=== PATIENT | female | born 1965 | race Caucasian/White ===

== ENCOUNTER → 2017-08-26 10:18 | Outpatient (CLI) | payer BC, SELFPAY ==
[2017-08-26 12:26] LABS: Hemoglobin A1c 8.8 % (4.2-6.3)
[2017-08-26 12:35] LABS: ALB/GLOB Ratio 0.9 RATIO (0.9-2.4); AST(SGOT) 35 U/L (15-37); Alanine Aminotransfer ALT/SGPT 36 U/L (13-56); Alkaline Phosphatase 40 U/L (45-117); Anion Gap 11 (5-15); BUN 29 mg/dL (7-18); Calcium,Total 9.9 mg/dL (8.5-10.1); Chloride 101 mmol/L (98-107); Cholesterol 155 mg/dL (200); Creatinine, Serum 1.21 mg/dL (0.55-1.02); EST Glomerular Filtration Rate 50 mL/min (>60); Est Glom Filt Rate - Afr Amer 60 mL/min (>60); Globulin 4.3 g/dL (2.2-4.2); Glucose 155 mg/dL (74-106); High Density Lipoprotein 37 mg/dL; Potassium 4.5 mmol/L (3.5-5.1); Protein, Total 8.3 g/dL (6.4-8.2); Sodium Level 139 mmol/L (136-145); Triglycerides 382 mg/dL; Very Low Density Lipoprotein 76 mg/dL (5-40)
== END ==
PROVIDERS: Family Provider Family Medicine; PCP Family Medicine; Visit Provider Nurse Practitioner
DX: E11.9 Type 2 diabetes mellitus without complications (principal)
CPT/HCPCS: 36415; 80053; 80061; 82043; 82570; 83036; 84443

== ENCOUNTER → 2017-11-19 10:26 | Outpatient (CLI) | payer BC, SELFPAY ==
[2017-11-19 12:06] LABS: ALB/GLOB Ratio 0.8 RATIO (0.9-2.4); AST(SGOT) 28 U/L (15-37); Alanine Aminotransfer ALT/SGPT 34 U/L (13-56); Albumin, Serum 3.6 g/dL (3.2-5.0); Alkaline Phosphatase 43 U/L (45-117); Anion Gap 7 (5-15); BUN 20 mg/dL (7-18); BUN/Creat Ratio 17.1 RATIO (10-20); Calcium,Total 9.3 mg/dL (8.5-10.1); Chloride 103 mmol/L (98-107); Cholesterol 159 mg/dL (200); Creatinine, Serum 1.17 mg/dL (0.55-1.02); EST Glomerular Filtration Rate 52 mL/min (>60); Est Glom Filt Rate - Afr Amer 62 mL/min (>60); Globulin 4.3 g/dL (2.2-4.2); Glucose 147 mg/dL (74-106); High Density Lipoprotein 38 mg/dL; Potassium 4.1 mmol/L (3.5-5.1); Protein, Total 7.9 g/dL (6.4-8.2); Sodium Level 139 mmol/L (136-145); T4 Free Direct 0.42 ng/dL (0.76-1.46); Triglycerides 420 mg/dL
== END ==
PROVIDERS: Family Provider Family Medicine; PCP Family Medicine; Referring Provider Nurse Practitioner; Visit Provider Nurse Practitioner
DX: E11.65 Type 2 diabetes mellitus with hyperglycemia (principal)
CPT/HCPCS: 36415; 80053; 80061; 84439; 84443

== ENCOUNTER → 2018-02-25 10:46 | Outpatient (CLI) | payer BC, SELFPAY ==
[2018-02-25 11:25] LABS: Absolute Neutrophil Count 4.1 X10^3/uL (2.0-7.7); Basophil# 0.02 X10^3/uL; Basophil% 0.3 % (0-1); Eosinophil# 0.34 X10^3/uL; Eosinophils% 4.5 % (0-5); Hematocrit 37.6 % (37-47); Hemoglobin 12.4 g/dl (12.0-15.0); Lymphocyte % 34.8 % (19-41); Mean Corpuscular Volume 88.1 fL (81-99); Mean Platelet Vol. 10.1 fl (6.2-12.0); Monocyte# 0.36 X10^3/uL; Monocyte% 4.8 % (0-10); Neutrophil # 4.12 X10^3/uL (2.7-7.7); Neutrophil % 55.1 % (47-70); Platelet Count 230 K/mm3 (150-450); RBC Distribution Width CV 14.8 % (11.6-14.6); RBC Distribution Width SD 47.1 fl (35.1-43.9); Red Blood Count 4.27 M/mm3 (4.2-5.4); White Blood Count 7.5 K/mm3 (4.4-11.0)
[2018-02-25 11:29] LABS: POSITIVE COUNT NO; POSITIVE DIFFERENTIAL NO; POSITIVE MORPHOLOGY NO
[2018-02-25 11:45] LABS: Hemoglobin A1c 8.8 % (4.2-6.3)
[2018-02-25 11:51] LABS: AST(SGOT) 36 U/L (15-37); Alanine Aminotransfer ALT/SGPT 38 U/L (13-56); Albumin, Serum 3.9 g/dL (3.2-5.0); Alkaline Phosphatase 51 U/L (45-117); Anion Gap 11 (5-15); BUN 22 mg/dL (7-18); BUN/Creat Ratio 18.5 RATIO (10-20); Calcium,Total 9.2 mg/dL (8.5-10.1); Chloride 103 mmol/L (98-107); Creatinine, Serum 1.19 mg/dL (0.55-1.02); EST Glomerular Filtration Rate 50 mL/min (>60); Est Glom Filt Rate - Afr Amer 61 mL/min (>60); Globulin 3.9 g/dL (2.2-4.2); Glucose 246 mg/dL (74-106); Potassium 4.9 mmol/L (3.5-5.1); Protein, Total 7.8 g/dL (6.4-8.2); Sodium Level 139 mmol/L (136-145)
[2018-02-27 10:30] LABS: PTHIN 10.9 pg/mL (18.4-80.1)
[2018-02-27 10:59] LABS: Vitamin D,25 Hydroxy 23.6 ng/mL (29.95-100.01)
--- OUTSIDE RECORDS SUMMARY | 2018-05-01 10:04 | XMS RPT_ITS ---
:1965 Author Organization OHIP Care Team Providers Name Role Phone CHIDI BRISCOE Attending Unavailable Elizabeth Duarte Attending Unavailable Elizabeth Duarte Referring Unavailable Pavel Briscoe Primary Care Unavailable Jak Oconnell Consulting Unavailable Denise Cat Attending Unavailable Pavel Briscoe Referring Unavailable Elizabeth Duarte Attending Unavailable Elizabeth Duarte Referring Unavailable Pavel Briscoe Primary Care Unavailable Elizabeth Duarte METAL WORKER-C Attending Unavailable Pavel Briscoe Referring Unavailable Pavel Briscoe Primary Care Unavailable Elizabeth Duarte METAL WORKER-C Attending Unavailable FeliciaElizabeth METAL WORKER-C Referring Unavailable Pavel Briscoe Primary Care Unavailable Elizabeth Duarte METAL WORKER-C Attending Unavailable Pavel Briscoe Referring Unavailable PROBLEMS PROBLEMS DATE TYPE CONDITION / CODE ATTENDING STATUS SOURCE 02/25/2018 Unknown E11.65 - Type 2 Elizabeth Duarte Active [place] diabetes mellitus [facility] Community with hyperglycemia Hospital / E11.65(ICD-10) Repository 02/25/2018 Unknown E11.59 - Type 2 ShoElizabeth de la rosa Active [place] diabetes mellitus METAL WORK[facility]C Community with other Hospital circulatory Repository complications / E11.59(ICD-10) 02/25/2018 Unknown I10 - Essential Elizabeth Duarte Active [place] (primary) [facility] Community hypertension / Hospital I10(ICD-10) Repository 02/25/2018 Unknown S83.242A - Other Elizabeth Duarte Active [place] tear of medial METAL WORKER-C Community meniscus, current Hospital injury, left knee, Repository initial encounter / S83.242A(ICD-10) 12/28/2017 Unknown E11.9 - Type 2 Elizabeth Duarte Active [place] diabetes mellitus METAL WORKER-C Community without Hospital complications / Repository E11.9(ICD-10) 12/28/2017 Unknown E03.9 - Elizabeth Duarte Active [place] Hypothyroidism, METAL WORKER-C Community unspecified / Hospital E03.9(ICD-10) Repository 12/28/2017 Unknown Z79.4 - intermediate Elizabeth Duarte Active [place] (current) use of METAL WORKER-C Community insulin / Hospital Z79.4(ICD-10) Repository 12/28/2017 Unknown E11.69 - Type 2 ShoElizabeth de la rosa Active [place] diabetes mellitus METAL WORKER-C Community with other Hospital specified Repository complication / E11.69(ICD-10) 12/28/2017 Unknown E78.5 - ShoElizabeth de la rosa Active [place] Hyperlipidemia, METAL WORKER-C Community unspecified / Hospital E78.5(ICD-10) Repository PROCEDURES PROCEDURES No Procedure Records FoundRESULTS RESULTS CNPN Observed: 02/28/2018 Status: COMPLETED Source: [place] 12:00 AM [facility] REPOSITORY Telephone (FPWADS) COBY GALEANO ([id number]) 1965 F Date Time Provider Department 02/28/18 CHIDI BRISCOE During your visit today, we recorded the following information about you: Jaylen Delcid Ma 02/28/2018 5:26 PM Addendum Received labs from [facility] 02/25/18 GLU 246 BUN 22 CREAT,SERUM 1.19 EST GFR 50 EST GFR AA 61 BUN/CRE 18.5 T PROT 7.8 ALB 3.9 GLOB 3.9 A/G 1.0 CA, TOTAL 9.2 AST 36 ALK P 51 ALT 38 T BILI 0.30 NA 139 POTASSIUM 4.9 CL 103 CO2 25.0 GAP 11 FREE T3 2.0 TSH 51.40 HGB AIC 8.8 WBC 7.5 RBC 4.27 HGB 12.4 HCT 37.6 MCV 88.1 MCH 29.0 MCHC 33.0 RDW CV 14.8 RDW SD 47.1 PLT 230 MPV 10.1 NEUT 55.1 LY 34.8 MONO 4.8 EO 4.5 BASO 0.3 IG 0.500 ABSOLUTE NEUT 4.1 ABSOLUTE LYMPH 2.60 PTH 10.9 Hm updated Jaylen Delcid Ma 03/01/2018 10:24 AM Signed [facility] 02/25/18 Vitamin D 25-OH 23.6 Allergies As of Date: 02/28/2018 (No Known Allergies) Date Reviewed: 08/09/2017 Reviewed by: Kitty Mix Ma - Fully Assessed Reason for Visit: [facility] Labs [Other] Cmt: 02/25/18 Prescriptions as of 02/28/2018 Sig: BIOTIN 5,000 MCG DISINTEGRATI* Take by mouth. CHROMIUM PICOLINATE 1,000 MCG* Take by mouth. INSULIN LISPRO (U-200) 200 UN* Inject 33-43 Units subcutaneo* INSULIN GLARGINE (U-100) 100 * Inject 48 Units subcutaneousl* ATORVASTATIN 40 MG TABLET Take 1 tablet by mouth once d* ESCITALOPRAM 20 MG TABLET Take 1 tablet by mouth once d* AMLODIPINE 10 MG TABLET Take 1 tablet by mouth once d* LOSARTAN 100 MG TABLET Take 1 tablet by mouth once d* HYDROCHLOROTHIAZIDE 50 MG TAB* Take 1 tablet by mouth once d* SPIRONOLACTONE 50 MG TABLET Take 1 tablet by mouth once d* FENOFIBRATE MICRONIZED 200 MG* Take 1 capsule by mouth once * METFORMIN ER 500 MG TABLET,EX* Take 2 tablets by mouth twice* OMEPRAZOLE 20 MG CAPSULE,MEGHAN* TAKE 1 CAPSULE BY MOUTH DAILY* GABAPENTIN 600 MG TABLET 1/2 tablet at bedtime, taper * BLOOD SUGAR DIAGNOSTIC STRIPS check blood sugars 4 times da* PEN NEEDLE, DIABETIC 32 GAUGE* Use with insulin injections 5* LEVOTHYROXINE 200 MCG TABLET TAKE 1 TABLET DAILY SIX DAYS * COENZYME Q10 100 MG CAPSULE Take 1 capsule by mouth once * FLUTICASONE 50 MCG/ACTUATION * Use 2 Sprays in each nostril * Patient not taking: Reported on 08/09/2017 CHOLECALCIFEROL (VITAMIN D3) * 1 capsule twice per day OMEGA-3 FATTY ACIDS 1,000 MG * Take 1 capsule by mouth twice* ASPIRIN 81 MG TABLET Take 81 mg by mouth. NORETHINDRONE (CONTRACEPTIVE)* Take 1 tablet by mouth once d* MULTIVITAMIN TABLET Take one(1) tablet daily. 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 Encounter Status:Closed by JAYLEN DELCID MA on 02/28/18 CBC W/DIFF, AUTOMATED Collected: 02/25/2018 Status: F Source: [place] 10:51 AM [facility] REPOSITORY Order Comment: JAK OCONNELL ORDERED CBCD BMP A1C ELIZABETH DUARTE ORDERED CMP TSH FT3 PTH VITD TYPE CODE TESTS RESULT OUT OF RANGE REFERENCE UNITS LAB L100.1000 4.4-11.0 K/mm3 Normal WBC 7.5 LAB L100.1200 4.2-5.4 M/mm3 Normal RBC 4.27 LAB L100.1300 12.0-15.0 g/dl Normal HGB 12.4 LAB L100.1400 37-47 % Normal HCT 37.6 LAB L100.1500 81-99 fL Normal MCV 88.1 LAB L100.1600 27.0-32.0 pg Normal MCH 29.0 LAB L100.1700 32-36 g/gl Normal MCHC 33.0 LAB L100.1810 11.6-14.6 % High RDW CV 14.8 LAB L100.1820 35.1-43.9 fl High RDW SD 47.1 LAB L100.1900 150-450 K/mm3 Normal PLT 230 LAB L100.2000 6.2-12.0 fl Normal MPV 10.1 LAB L100.2100 47-70 % Normal NEUT% 55.1 LAB L100.2200 19-41 % Normal LY% 34.8 LAB L100.2300 0-10 % Normal MONO% 4.8 LAB L100.2400 0-5 % Normal EO% 4.5 LAB L100.2500 0-1 % Normal BASO% 0.3 LAB L100.2550 0.0-0.9 % Normal IM GRAN % 0.500 Result Comment: IG% - Immature Granulocytes (promyelocytes, myelocytes and metamyelocytes) > 1% indicates that a LEFT SHIFT is Present. LAB L100.2620 2.0-7.7 X10 3/uL Normal Absolute Neut 4.1 LAB L100.2720 0.83-4.51 X10 3/ul Normal Absolute Lymph 2.60 Performed By: #### L100.0100 #### [facility] [address] [place], [address] HEMOGLOBIN A1C Collected: 02/25/2018 Status: F Source: [place] 10:51 AM [facility] REPOSITORY Order Comment: JAK OCONNELL ORDERED CBCD BMP A1C ELIZABETH NORRISSATNAM ORDERED CMP TSH FT3 PTH VITD TYPE CODE TESTS RESULT OUT OF RANGE REFERENCE UNITS LAB L501.9985 4.2-6.3 % High HGB A1C 8.8 Performed By: #### L501.9985 #### [facility] [address] [place], [address] COMPREHENSIVE METABOLIC Collected: 02/25/2018 Status: F Source: [facility] 10:51 AM [facility] REPOSITORY Order Comment: JAK OCONNELL ORDERED CBCD BMP A1C ELIZABETH FELICIA ORDERED CMP TSH FT3 PTH VITD TYPE CODE TESTS RESULT OUT OF RANGE REFERENCE UNITS LAB L501.0100 74-106 mg/dL High GLU 246 Result Comment: Glucose result greater than or equal to 200 mg/dL suggests DIABETES MELLITUS per A.D.A. criteria. Please note revised GLUCOSE reference range effective 2017. LAB L501.1000 7-18 mg/dL High BUN 22 LAB L501.1100 0.55-1.02 mg/dL High CREAT,SERUM 1.19 Result Comment: The validity of the calculated GFR AND GFRAA in patients over 70 years has not been determined. Clinical correlation is essential. LAB L501.1110 >60 mL/min Low EST GFR 50 Result Comment: Non- GFR Calc LAB L501.1115 >60 mL/min Normal EST GFR - AA 61 Result Comment: GFR Calc LAB L501.1300 10-20 RATIO Normal BUN/CRE 18.5 LAB L501.1500 6.4-8.2 g/dL T Normal PROT 7.8 LAB L501.1800 3.2-5.0 g/dL Normal ALB 3.9 LAB L501.1950 2.2-4.2 g/dL Normal GLOB 3.9 LAB L501.2000 0.9-2.4 RATIO Normal A/G 1.0 LAB L501.2200 8.5-10.1 mg/dL CA Normal 9.2 LAB L501.4100 15-37 U/L Normal AST 36 LAB L501.4305 45-117 U/L Normal ALK P 51 LAB L501.4405 13-56 U/L Normal ALT 38 LAB L501.4600 0.20-1.00 mg/dL T Normal BILI 0.30 LAB L501.5300 136-145 mmol/L NA Normal 139 LAB L501.5600 3.5-5.1 mmol/L K Normal 4.9 LAB L501.5900 98-107 mmol/L CL Normal 103 LAB L501.6100 21.0-32.0 mmol/L Normal CO2 25.0 LAB L501.6200 5-15 Normal GAP 11 Performed By: #### L500.4050, L501.79186, L501.9520 #### [facility] [address] [facility]. [place], [place], [address] FREE T3 Collected: 02/25/2018 Status: F Source: [place] 10:51 AM [facility] REPOSITORY Order Comment: JAK OCONNELL ORDERED CBCD BMP A1C ELIZABETH [facility] ORDERED CMP TSH FT3 PTH VITD TYPE CODE TESTS RESULT OUT OF RANGE REFERENCE UNITS LAB L501.84129 2.18-3.98 pg/mL Low FREE T3 2.0 Performed By: #### L500.4050, L501.92957, L501.9520 #### [facility] [address] [facility]. [place], [place], [address] THYROID STIM HORMONE Collected: 02/25/2018 Status: F Source: [place] (TSH) 10:51 AM [facility] REPOSITORY Order Comment: JAK OCONNELL ORDERED CBCD BMP A1C ELIZABETH SHOOK ORDERED CMP TSH FT3 PTH VITD TYPE CODE TESTS RESULT OUT OF RANGE REFERENCE UNITS LAB L501.9520 0.358-3.74 uIU/mL High TSH 51.40 Performed By: #### L500.4050, L501.20447, L501.9520 #### [facility] [address] [place], [place], [address] PTHIN Collected: 02/25/2018 Status: F Source: [place] 10:51 AM [facility] REPOSITORY Order Comment: JAK OCONNELL ORDERED CBCD BMP A1C ELIZABETH DUARTE ORDERED CMP TSH FT3 PTH VITD TYPE CODE TESTS RESULT OUT OF RANGE REFERENCE UNITS LAB L509.1000 18.4-80.1 pg/mL Low PTHIN 10.9 Performed By: #### L509.1000 #### [facility] [address] [place], [place], [address] VITAMIN D,25 HYDROXY Collected: 02/25/2018 Status: F Source: [place] 10:51 AM [facility] REPOSITORY Order Comment: JAK OCONNELL ORDERED CBCD BMP A1C ELIZABETH DUARTE ORDERED CMP TSH FT3 PTH VITD TYPE CODE TESTS RESULT OUT OF REFERENCE UNITS RANGE LAB L506.1000 29.95-100.01 ng/mL Low Vitamin D 23.6 25-OH Result Comment: Vitamin D 25(OH) Status Range Deficiency <20 ng/mL (50nmol/L) Insuffciency 20 - 30 ng/mL (50 - 75 nmol/L) Sufficiency 30 - 100 ng/mL (75 - 250 nmol/L) Toxicity >100 ng/mL (>250 nmol/L) Performed By: #### L506.1000 #### [facility] [address] [place], [address] ENDOCRINOLOGY VISIT Observed: 11/28/2017 Status: F Source: [place] REPORT 10:37 AM [facility] REPOSITORY [facility] [place], [place] [address] OFFICE VISIT Date of Service: 11/22/17 MR#: [id number] Acct: [id number] Name: COBY GALEANO Rep #: [id number] : 1965 Provider: Elizabeth Duarte NP Age/Sex: 52/F [place] [facility]: Signed HPI History of present illness Coby Galeano is a 52 year old female who presents for follow up od diabetes type 2. Diagnosed in 2001. Pt of Dr. Bricsoe. Currently on lantus 48 units twice daily and meal insullin 45 units before each meal. Also takes metformin. Pt denies difficulty with injections or self monitoring of BG. Denies any signs of irritation or infection at of injections. Is taking the insulin as directed. Is here today to review lab results. At last visit issues noted with elevation in Cr levels. Patient was ask to recheck levels for this appointment. Is noted to currently take 4 medications for blood pressure. She reports she is not consistent in fluid intake and does tend to drink most fluids with caffeine. At time of visit -Pt denies symptoms of hypertensive emergency (CP,SOB,FLOYD< blurred vision) and hypotension(dizziness, lightheadedness) - Pt denies symptoms of hypoglycemia ( sweaty, confusion, anxiety, tremor, hunger, palpitations) and hyperglycemia (polydipsia, polyuria) -Pt denies potential medication adverse effects (cough,myalgia, edema). Since our last visit she denies excessive thirst or increased frequency of urination, chest pain or dyspnea, numbness,tingling, or pain in extremities, new or unusual visual symptoms. Has had occ low blood sugars. Follows a diabetic diet. Is compliant with medication and is tolerating without side effects. HYPOGLYCEMIA Aware of hypoglycemia: yes Able to self treat hypoglycemia : yes Frequent low BG readings: No Has supply of glucagon: no DIET/EXERCISE healthy diet 3 meals Carb counts Not as routine with exercise currently I have reviewed medical records, vital signs, allergies, current medications, labs, PMH, SH, SH, and records of vaccinations. Exam Const General: comfortable, well groomed Nutritional Appearance: well nourished, overweight Orientation: oriented x3 HENMT Head: normal to inspection, atraumatic Ears: hearing grossly normal bilaterally Nose: external nose normal Mouth: oral mucosae normal, moist mucous membranes Teeth and gingiva: dentition normal Eyes General: appearance normal, both eyes and all related structures Eyelids: eyelids normal Conjunctivae: conjunctivae normal Sclera: sclerae normal Pupils: PERRL Neck Neck: normal visual inspection Neck mass: No Thyroid: thyroid normal Resp Effort AND Inspection: normal respiratory effort, able to speak in complete sentences, symmetric chest movement Auscultation: Bilateral: Clear to Auscultation Cardio Rate: regular rate Rhythm: regular rhythm Heart Sounds: S1 normal, S2 normal GI Inspection: normal to inspection Auscultation: normal bowel sounds Palpation: soft, no guarding Skin General: no rashes or lesions noted Wounds: no wounds Diabetic Foot Pulses: L dorsalis pedis pulse: normal, R dorsalis pedis pulse: normal Monofilament test: Left foot: normal, Right foot: normal Neuro General: oriented x3, CN's II-XI intact bilaterally Extrem General: full ROM, normal capillary refill, normal to inspection Psych Appearance: well kempt, grossly normal Mental Status: mental status grossly normal Mood: congruent mood Affect: normal affect Speech and Movement: speech and movement normal Attitude: cooperative Thought Process: normal Thought Content: normal Judgment: judgment good Type: type 2, insulin-requiring Glucose control symptoms: Reports high post-meal glucose Weight and fatigue symptoms: Reports weight gain; denies snoring Cardiopulmonary symptoms: Denies chest pain at rest, dyspnea on exertion, lightheadedness or myalgias GI symptoms: Reports diarrhea and nausea/dyspepsia; denies constipation or vomiting Other symptoms: Denies blurry vision or change in vision Pertinent visit history: Denies recent visit to ER, recent hospital admission or recent glucagon injection Intake Vital Signs11/22/17 Height 5 ft 10.5 in 11/22/17 Weight: 275 lb 11/22/17 Body Mass Index (BMI) 38.9 11/22/17 Blood Pressure 130/74 H 11/22/17 Blood Pressure Location Lt popliteal 11/22/17 Blood Pressure Position Sitting Intake Visit Reasons: Diabetes follow-up Coordinator Of Placement Required: No Accompanied by: Self Allergies No Known Allergies Allergy (Unverified 11/22/17 09:23) Medications amlodipine 10 mg tablet 10 mg PO QDAY 08/30/17 [History Confirmed 11/22/17] aspirin 325 mg tablet 325 mg PO QDAY 08/30/17 [History Confirmed 11/22/17] atorvastatin 40 mg tablet 40 mg PO QDAY 08/30/17 [History Confirmed 11/22/17] escitalopram 10 mg tablet 10 mg PO QDAY 08/30/17 [History Confirmed 11/22/17] fenofibrate nanocrystallized 145 mg tablet 145 mg PO QDAY 08/30/17 [History Confirmed 11/22/17] gabapentin 600 mg tablet 1,200 mg PO QDAY tab 08/30/17 [History Confirmed 11/22/17] hydrochlorothiazide 50 mg tablet 50 mg PO QDAY 08/30/17 [History Confirmed 11/22/17] losartan 100 mg tablet 100 mg PO QDAY 08/30/17 [History Confirmed 11/22/17] metformin ER 500 mg tablet,extended release 24hr 1,000 mg PO BID tab 08/30/17 [History Confirmed 11/22/17] spironolactone 25 mg tablet 25 mg PO QDAY 08/30/17 [History Confirmed 11/22/17] insulin glargine (U-100) 100 unit/mL (3 mL) subcutaneous pen 55 unit SC BID #105 ml 09/13/17 [Rx Confirmed 11/22/17] pen needle, diabetic 32 gauge x 32 See Dose Instructions .ROUTE .MEDSUPPLY #360 ea 09/15/17 [Rx Confirmed 11/22/17] insulin aspart U- 100 100 unit/mL subcutaneous pen See Rx Instructions SC .COMPLEX #153 ml 10/11/17 [Rx Confirmed 10/11/17] blood sugar diagnostic strips See Dose Instructions .ROUTE .MEDSUPPLY #540 ea 11/22/17 [Rx Confirmed 11/22/17] levothyroxine 25 mcg tablet See Rx Instructions PO QDAY #96 tab 11/22/17 [Rx Confirmed 11/22/17] Nurse's Note: blood sugars : low : 140 high :354 [facility] Medical History Lichen sclerosus (Acute) PCOS (polycystic ovarian syndrome) (Acute) APRIL III (cervical intraepithelial neoplasia grade III) with severe dysplasia (Chronic) Abnormal Pap smear of vagina (Acute) Anxiety and depression (Acute) Diabetes (Acute) Hyperlipemia (Acute) Overweight (Acute) Vitamin D deficiency (Acute) gallbladder removal (Acute) hypothroidism (Acute) Hypertension (Chronic) Family History Mother Heart disease Social History Smoking Status: Never smoker alcohol intake: never substance use type: does not use what type of physical activity do you participate in: other details: stretching do you feel safe at home: Yes additional social history: spouse Denny Staton Constitutional: Positive for fatigue; no anorexia, body ache, chills, fever(s), frequent falls, decreased energy, malaise, night sweats, weakness, weight change, sleep problems, abnormal sleep pattern, change in appetite, other, headache(s), snoring or excessive sweating Eyes Eyes: No blurry vision, change in vision, double vision, discharge, dry eyes, bulging eyes, floaters, visual disturbances, eye pain, light sensitivity, spots in vision, tunnel vision or other ENT ENT: Positive for nasal congestion and nasal discharge; no abnormal hearing, ear pain, ear discharge, ear pressure, hearing loss, tinnitus, dizziness/vertigo, balance problems, nosebleed/epistaxis, nasal obstruction, nose pain, sinus pressure, sinus pain, post nasal drip, headache(s), facial pain, dental pain, dry mouth, bad breath, hoarseness, lip swelling, mouth lesions, mouth pain, sore throat, tongue swelling, throat swelling, other, difficulty swallowing or neck pain Resp Respiratory: Positive for cough; no change in phlegm color, chest congestion, excessive phlegm production, hemoptysis, pain on inspiration, shortness of breath, pain with cough, snoring, stridor, wheezing or other Cardio Cardiology: No chest pain at rest, chest pain with exertion, leg pain with exertion, excessive sweating, shortness of breath, dyspnea on exertion, generalized swelling, irregular heart rhythm, lightheadedness, orthopnea, radiating jaw, neck or arm pain, fast heart rate, slow heart rate, palpitations or other Gastro GI: Positive for diarrhea and nausea/dyspepsia; no abdominal pain, belching, bloating, change in bowel habits, change in stool character, coffee ground emesis, constipation, cramping, heartburn, difficulty swallowing, feeling full early, excessive flatus, incontinent of stools, Vomiting blood/hematemesis, blood in stool, loose stools, Black,tarry stools, pain with swallowing, vomiting or other Genitourinary-Female: No difficulty urinating, burning urination, painful urination, urinary incontinence, urinary frequency, urinary urgency, urinary hesitancy, urinary retention, blood in urine, Frequent nighttime urination/ nocturia, post void dribbling, suprapubic fullness, side pain, sexual problems, genital lesions, genital itching, hot flashes, abnormal periods, abnormal vaginal bleeding, absent period, painful periods, light periods, heavy periods, difficulty getting , painful intercourse, pelvic pain, vaginal dryness, vaginal odor, Vaginal Itching or other Musc Musculoskeletal: No abnormal walking, joint pain, back pain, deformity, joint swelling, limited range of motion, loss of height, muscle cramps, muscle weakness, decreased muscle mass, body aches, neck pain, numbness, radiating pain into limb, stiffness, tingling or other Skin Skin: Positive for change in hair and nail changes; no acne, hair loss, boil, change in skin color, dry skin, redness, excessive hair growth, yellowing of the skin, lesions, itching, rash, skin pain, skin ulcer, sores, skin swelling, wounds or other Breast Breast: No other Neuro Neurology: No frequent falls, weakness, visual disturbances, abnormal hearing, headache(s), abnormal walking, numbness or tingling Psych Psychiatric: No abnormal sleep pattern, No change in appetite Endo Endocrine: Positive for fatigue; no other or excessive sweating Aller/Imm Allergy/Immunologic: No lip swelling, tongue swelling, throat swelling, wheezing or itchy eyes Assessment AND Plan 1. Uncontrolled type 2 diabetes mellitus with hyperglycemia E11.65 Plan Diabetes remains uncontrolled. Recent elevation in Cr. has patient concerned. Recheck today notes sl improvement but remains abnormal. BG readings remain with elevated readings post meal. Will adjust meal coverage. Pt to check BG in pairs. Orders Orders: 2. Hyperlipidemia associated with type 2 diabetes mellitus E11.69; E78.5 Medications New: blood sugar diagnostic strips (OneTouch Ultra Blueuse to check BG 6 x qd 540 ea 3RF e11.9 Test Strip) 3. Hypertension associated with diabetes E11.59; I10 Plan BP improved. Currently 130/74. Taking medication as directed except she does skip lasix on occasion. Orders Orders: 4. Hypothyroidism (acquired) E03.9 Plan TSH remains elevated. Adjustment made in regimen. Add 1/2 tablet on Tuesday with lab recheck in 6 weeks. Patient reports taking medication as directed. Plan Detail Other Medications New: insulin aspart U- (Novolog Flexpen U-) 43 units with each meal and sliding scale up to 170 units daily SC 153 mL 3RF Refilled: Additional Comments 1. Please schedule follow up in 3 months. 2. Lab work one week before appointment. 3. Discussed importance of regular exercise and recommend starting or continuing a regular exercise program for good health. 4. The patient was encouraged to lose weight for good health 5. The importance of monitoring blood sugar regularly was reviewed. 6. The importance of monitoring the HBA1c level regularly was reviewed. 7. The importance of prper foot care and regularly checking feet to prevent sores and loss of limbs was reviewed. 8. The importance of keeping BP at or below 130/80 to prevent stroke, heart attacks, kidney failure, blindness was reviewed. Spent approximately 30 minutes with patient with over 50% of time spent in discussion and counseling regarding medication adjustment, symptoms and treatment of hypoglycemia, diet adherence, and checking BG before driving. Coding Level of Care Code Off vis,est,level 4 Diagnoses Uncontrolled type 2 diabetes mellitus with hyperglycemia E11.65 Glycemic state: with hyperglycemia Hyperlipidemia associated with type 2 diabetes mellitus E11.69; E78.5 Hypertension associated with diabetes E11.59; I10 Hypothyroidism (acquired) E03.9 11/28/17 1037 <Electronically signed by Elizabeth SAUL> Date Elizabeth SAUL Cosigner Signature: Date (if applicable) CC: COMPREHENSIVE METABOLIC Collected: 11/19/2017 Status: F Source: [place] NICKO 10:36 AM [facility] REPOSITORY TYPE CODE TESTS RESULT OUT OF RANGE REFERENCE UNITS LAB L501.0100 74-106 mg/dL High GLU 147 Result Comment: Fasting Glucose result greater than or equal to 126 mg/dL suggests DIABETES MELLITUS per A.D.A. criteria. Please note revised GLUCOSE reference range effective 2017. LAB L501.1000 7-18 mg/dL High BUN 20 LAB L501.1100 0.55-1.02 mg/dL High CREAT,SERUM 1.17 Result Comment: The validity of the calculated GFR AND GFRAA in patients over 70 years has not been determined. Clinical correlation is essential. LAB L501.1110 >60 mL/min Low EST GFR 52 Result Comment: Non- GFR Calc LAB L501.1115 >60 mL/min Normal EST GFR - AA 62 Result Comment: GFR Calc LAB L501.1300 10-20 RATIO Normal BUN/CRE 17.1 LAB L501.1500 6.4-8.2 g/dL T Normal PROT 7.9 LAB L501.1800 3.2-5.0 g/dL Normal ALB 3.6 LAB L501.1950 2.2-4.2 g/dL High GLOB 4.3 LAB L501.2000 0.9-2.4 RATIO Low A/G 0.8 LAB L501.2200 8.5-10.1 mg/dL CA Normal 9.3 LAB L501.4100 15-37 U/L Normal AST 28 LAB L501.4305 45-117 U/L Low ALK P 43 LAB L501.4405 13-56 U/L Normal ALT 34 LAB L501.4600 0.20-1.00 mg/dL T Normal BILI 0.40 LAB L501.5300 136-145 mmol/L NA Normal 139 LAB L501.5600 3.5-5.1 mmol/L K Normal 4.1 LAB L501.5900 98-107 mmol/L CL Normal 103 LAB L501.6100 21.0-32.0 mmol/L Normal CO2 29.0 LAB L501.6200 5-15 Normal GAP 7 Performed By: #### L500.4050, L500.4100, L501.9520, L506.0400 #### [facility] [address] [place], [address] LIPID PROFILE Collected: 11/19/2017 Status: F Source: [place] 10:36 AM [facility] REPOSITORY TYPE CODE TESTS RESULT OUT OF RANGE REFERENCE UNITS LAB L501.4900 200 mg/dL Normal CHOL 159 Result Comment: <200 mg/dL Desirable 200-240 mg/dL Borderline >240 mg/dL High Risk LAB L501.5000 mg/dL High TRIG 420 Result Comment: The drugs N-Acetylcysteine and Metamizole may falsely depress this assay. TRIGLYCERIDE IS GREATER THAN 400 mg/dL. LDL RESULT IS INVALID AND WILL NOT BE REPORTED. Serum Triglycerides Reference Interval Normal <150 mg/dL Borderline high 150 - 199 mg/dL High 200 - 499 mg/dL Very High > or = 500 mg/dL LAB L501.6400 mg/dL Low HDL 38 Result Comment: The drugs N-Acetylcysteine and Metamizole may falsely depress this assay. Reference Range HDL <40 mg/dL Low HDL Cholesterol HDL >or= 60 mg/dL High HDL Cholesterol LAB L501.6500 0-130 mg/dL Test Normal not performed LDL LAB L501.6600 5-40 mg/dL Test Normal not performed VLDL Performed By: #### L500.4050, L500.4100, L501.9520, L506.0400 #### [facility] [address] [place], [address] THYROID STIM HORMONE Collected: 11/19/2017 Status: F Source: [place] (TSH) 10:36 AM [facility] REPOSITORY TYPE CODE TESTS RESULT OUT OF RANGE REFERENCE UNITS LAB L501.9520 0.358-3.74 uIU/mL High TSH 49.10 Performed By: #### L500.4050, L500.4100, L501.9520, L506.0400 #### [facility] [address] [facility] [place], [address] T4 FREE DIRECT Collected: 11/19/2017 Status: F Source: [place] 10:36 AM [facility] REPOSITORY TYPE CODE TESTS RESULT OUT OF REFERENCE UNITS RANGE LAB L506.0400 0.76-1.46 ng/dL Low T4 FREE 0.42 DIRECT Performed By: #### L500.4050, L500.4100, L501.9520, L506.0400 #### [facility] [address] [facility] [place], [address] PROGRESS Observed: 09/14/2017 Status: COMPLETED Source: [place] 1:52 PM [facility] REPOSITORY HNO ID: [id number] Author: Kassi Edwards Service: (none) Author Type: Inspector Fuel Hose Type: Progress Notes Filed: 09/14/2017 2:25 PM Note Text: Called patient regarding lab work .[facility] Updating Health maintenance. Kassi Edwards MA [facility] Observed: 09/14/2017 Status: COMPLETED Source: [place] 12:00 AM [facility] REPOSITORY Patient Outreach (FAMPWS) COBY GALEANO ([id number]) 1965 F Date Time Provider Department 09/14/17 KASSI EDWARDS) MANJULAPWS During your visit today, we recorded the following information about you: Kassi Edwards MA 09/14/2017 2:25 PM Signed Called patient regarding lab work .[facility] Updating Health maintenance. Kassi Edwards MA Allergies As of Date: 09/14/2017 (No Known Allergies) Date Reviewed: 08/09/2017 Reviewed by: Kitty Mix Ma - Fully Assessed Order(s):HGB A1C [DPVHV0E] Order #: [id number] LIPID PANEL - EXTERNAL [[id number]] Order #: [id number] LDL CHOLESTEROL DIR [SQLDLDCT] Order #: [id number] MICROALBUMIN RANDOM URINE (EXTERNAL) [[id number]] Order #: [id number] Prescriptions as of 09/14/2017 Sig: BIOTIN 5,000 MCG DISINTEGRATI* Take by mouth. CHROMIUM PICOLINATE 1,000 MCG* Take by mouth. INSULIN LISPRO (U-200) 200 UN* Inject 33-43 Units subcutaneo* INSULIN GLARGINE (U-100) 100 * Inject 48 Units subcutaneousl* ATORVASTATIN 40 MG TABLET Take 1 tablet by mouth once d* ESCITALOPRAM 20 MG TABLET Take 1 tablet by mouth once d* AMLODIPINE 10 MG TABLET Take 1 tablet by mouth once d* LOSARTAN 100 MG TABLET Take 1 tablet by mouth once d* HYDROCHLOROTHIAZIDE 50 MG TAB* Take 1 tablet by mouth once d* SPIRONOLACTONE 50 MG TABLET Take 1 tablet by mouth once d* FENOFIBRATE MICRONIZED 200 MG* Take 1 capsule by mouth once * METFORMIN ER 500 MG TABLET,EX* Take 2 tablets by mouth twice* OMEPRAZOLE 20 MG CAPSULE,MEGHAN* TAKE 1 CAPSULE BY MOUTH DAILY* GABAPENTIN 600 MG TABLET 1/2 tablet at bedtime, taper * BLOOD SUGAR DIAGNOSTIC STRIPS check blood sugars 4 times da* PEN NEEDLE, DIABETIC 32 GAUGE* Use with insulin injections 5* LEVOTHYROXINE 200 MCG TABLET TAKE 1 TABLET DAILY SIX DAYS * COENZYME Q10 100 MG CAPSULE Take 1 capsule by mouth once * FLUTICASONE 50 MCG/ACTUATION * Use 2 Sprays in each nostril * Patient not taking: Reported on 08/09/2017 CHOLECALCIFEROL (VITAMIN D3) * 1 capsule twice per day OMEGA-3 FATTY ACIDS 1,000 MG * Take 1 capsule by mouth twice* ASPIRIN 81 MG TABLET Take 81 mg by mouth. NORETHINDRONE (CONTRACEPTIVE)* Take 1 tablet by mouth once d* MULTIVITAMIN TABLET Take one(1) tablet daily. 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 Encounter Status:Closed by KASSI EDWARDS on 09/14/17 ENDOCRINOLOGY VISIT Observed: 09/05/2017 Status: F Source: [place] REPORT 7:57 AM [facility] REPOSITORY [facility] [address] [place] [address]. [address] [place] [address] OFFICE VISIT Date of Service: 08/30/17 MR#: [id number] Acct: [id number] Name: COBY GALEANO Rep #: [id number] : 1965 Provider: Elizabeth Duarte NP Age/Sex: 52/F Location: [facility] [place] Status: Signed HPI History of present illness Coby Galeano is a 52 year old female who presents for follow up od diabetes type 2. Diagnosed in 2001. Pt od Dr. Briscoe. Currently on lantus 48 untis twice daily and meal insullin 45 units before each meal. Also takes metformin. Pt denies difficulty with injections or self monitoring of BG. Denies any signs of irritation or infection at of injections. Is taking the insulin as directed. At time of visit -Pt denies symptoms of hypertensive emergency (CP,SOB,FLOYD< blurred vision) and hypotension(dizziness, lightheadedness) - Pt denies symptoms of hypoglcemia( sweaty, confusion, anxiety, tremor, hunger, palpitations) and hyperglycemia (polydipsia, polyuria) -Pt denies potential medication adverse effects (cough,myalgia, edema). Since our last visit she denies excessive thirst or increased frequency of urination, chest pain or dyspnea, numbness,tingling, or pain in extremities, new or unusual visual symptoms. Has had occ low blood sugars. Follows a diabetic diet. Is compliant with medication and is tolerating without side effects. HYPOGLYCEMIA Aware of hypoglycemia: yes Able to self treat hypoglycemia : yes Frequent low BG readings: No Has supply of glucagon: no DIET/EXERCISE healthy diet 3 meals Carb counts Not as routine with exercise currently I have reviewed medical records, vital signs, allergies, current medications, labs, PMH, SH, SH, and records of vaccinations. Type: type 2, insulin-requiring Glucose control symptoms: Reports high fasting glucose Weight and fatigue symptoms: Denies snoring Cardiopulmonary symptoms: Denies chest pain at rest, dyspnea on exertion, lightheadedness or myalgias GI symptoms: Denies constipation, diarrhea, nausea/dyspepsia or vomiting Skin and extremity symptoms: Denies tingling/numbness/burning Other symptoms: Denies blurry vision or change in vision Self monitoring: Yes Percentage of fasting blood glucose within goal: 25%-50% of the time Dietary compliance: Diabetes: good Diabetes education in past year: Yes Glucose testing: demonstrates correct use of meter Physical activity: regular History of nephropathy: No Nephropathy details: Denies microalbuminuria Date of last dilated eye exam: 09/07/17 Date of last foot exam: 09/11/17 Neuropathy details: Denies on medications for pain Date of last podiatry visit: 09/11/17 Dentures: No Exam Const General: comfortable, well groomed Nutritional Appearance: well nourished, overweight Orientation: oriented x3 [facility] Head: normal to inspection, atraumatic Ears: hearing grossly normal bilaterally Nose: external nose normal Mouth: oral mucosae normal, moist mucous membranes Teeth and gingiva: dentition normal Eyes General: appearance normal, both eyes and all related structures Eyelids: eyelids normal Conjunctivae: conjunctivae normal Sclera: sclerae normal Pupils: PERRL Neck Neck: normal visual inspection Neck mass: No Thyroid: thyroid normal Resp Effort AND Inspection: normal respiratory effort, able to speak in complete sentences, symmetric chest movement Auscultation: Bilateral: Clear to Auscultation Cardio Rate: regular rate Rhythm: regular rhythm Heart Sounds: S1 normal, S2 normal GI Inspection: normal to inspection Auscultation: normal bowel sounds Palpation: soft, no guarding Skin General: no rashes or lesions noted Wounds: no wounds Diabetic Foot Pulses: L dorsalis pedis pulse: normal, R dorsalis pedis pulse: normal Monofilament test: Left foot: normal, Right foot: normal Neuro General: oriented x3, CN's II-XI intact bilaterally Extrem General: full ROM, normal capillary refill, normal to inspection Psych Appearance: well kempt, grossly normal Mental Status: mental status grossly normal Mood: congruent mood Affect: normal affect Speech and Movement: speech and movement normal Attitude: cooperative Thought Process: normal Thought Content: normal Judgment: judgment good Intake Vital Signs08/30/17 Height 5 ft 10.5 in 08/30/17 Weight: 273 lb 08/30/17 Body Mass Index (BMI) 38.6 08/30/17 Blood Pressure 122/73 08/30/17 Blood Pressure Location Lt popliteal 08/30/17 Blood Pressure Position Sitting Intake Visit Reasons: Diabetes Mellitus Type 2 Coordinator Of Placement Required: No Accompanied by: Self Is patient in pain?: No Allergies No Known Allergies Allergy (Unverified 08/30/17 09:33) Medications amlodipine 10 mg tablet 10 mg PO QDAY 08/30/17 [History Confirmed 08/30/17] aspirin 325 mg tablet 325 mg PO QDAY 08/30/17 [History Confirmed 08/30/17] atorvastatin 40 mg tablet 40 mg PO QDAY 08/30/17 [History Confirmed 08/30/17] escitalopram 10 mg tablet 10 mg PO QDAY 08/30/17 [History Confirmed 08/30/17] fenofibrate nanocrystallized 145 mg tablet 145 mg PO QDAY 08/30/17 [History Confirmed 08/30/17] gabapentin 600 mg tablet 1,200 mg PO QDAY tab 08/30/17 [History Confirmed 08/30/17] hydrochlorothiazide 50 mg tablet 50 mg PO QDAY 08/30/17 [History Confirmed 08/30/17] levothyroxine 25 mcg tablet See Label Instructions PO QDAY 08/30/17 [History Confirmed 08/30/17] losartan 100 mg tablet 100 mg PO QDAY 08/30/17 [History Confirmed 08/30/17] metformin ER 500 mg tablet,extended release 24hr 1,000 mg PO BID tab 08/30/17 [History Confirmed 08/30/17] spironolactone 25 mg tablet 25 mg PO QDAY 08/30/17 [History Confirmed 08/30/17] insulin glargine (U-100) 100 unit/mL (3 mL) subcutaneous pen 55 unit SC BID #105 ml 09/03/17 [Rx Confirmed 09/03/17] insulin lispro (U-200) 200 unit/mL (3 mL) subcutaneous pen See Label Instructions SC TID #18 ml 09/03/17 [Rx Confirmed 09/03/17] Is last menstrual period known: No Post menopausal: Yes Patient : No Nurse's Note: blood sugars : low : 116 high : 424 PFSH Medical History Lichen sclerosus (Acute) PCOS (polycystic ovarian syndrome) (Acute) APRIL III (cervical intraepithelial neoplasia grade III) with severe dysplasia (Chronic) Abnormal Pap smear of vagina (Acute) Anxiety and depression (Acute) Diabetes (Acute) Hyperlipemia (Acute) Overweight (Acute) Vitamin D deficiency (Acute) gallbladder removal (Acute) hypothroidism (Acute) Hypertension (Chronic) Family History Mother Heart disease Social History Smoking Status: Never smoker alcohol intake: never substance use type: does not use what type of physical activity do you participate in: other details: stretching do you feel safe at home: Yes additional social history: spouse Denny Staton Constitutional: Positive for fatigue; no anorexia, body ache, chills, fever(s), frequent falls, decreased energy, malaise, night sweats, weakness, weight change, sleep problems, abnormal sleep pattern, change in appetite, other, headache(s), snoring or excessive sweating Eyes Eyes: No blurry vision, change in vision, double vision, discharge, dry eyes, bulging eyes, floaters, visual disturbances, eye pain, light sensitivity, spots in vision, tunnel vision or other ENT ENT: Positive for nasal discharge; no abnormal hearing, ear pain, ear discharge, ear pressure, hearing loss, tinnitus, dizziness/vertigo, balance problems, nosebleed/epistaxis, nasal congestion, nasal obstruction, nose pain, sinus pressure, sinus pain, post nasal drip, headache(s), facial pain, dental pain, dry mouth, bad breath, hoarseness, lip swelling, mouth lesions, mouth pain, sore throat, tongue swelling, throat swelling, other, difficulty swallowing or neck pain Resp Respiratory: No cough, change in phlegm color, chest congestion, excessive phlegm production, hemoptysis, pain on inspiration, shortness of breath, pain with cough, snoring, stridor, wheezing or other Cardio Cardiology: No chest pain at rest, chest pain with exertion, leg pain with exertion, excessive sweating, shortness of breath, dyspnea on exertion, generalized swelling, irregular heart rhythm, lightheadedness, orthopnea, radiating jaw, neck or arm pain, fast heart rate, slow heart rate, palpitations or other Gastro GI: No abdominal pain, belching, bloating, change in bowel habits, change in stool character, coffee ground emesis, constipation, cramping, diarrhea, heartburn, difficulty swallowing, feeling full early, excessive flatus, incontinent of stools, Vomiting blood/hematemesis, blood in stool, loose stools, Black,tarry stools, nausea/dyspepsia, pain with swallowing, vomiting or other Genitourinary-Female: No difficulty urinating, burning urination, painful urination, urinary incontinence, urinary frequency, urinary urgency, urinary hesitancy, urinary retention, blood in urine, Frequent nighttime urination/ nocturia, post void dribbling, suprapubic fullness, side pain, sexual problems, genital lesions, genital itching, hot flashes, abnormal periods, abnormal vaginal bleeding, absent period, painful periods, light periods, heavy periods, difficulty getting , painful intercourse, pelvic pain, vaginal dryness, vaginal odor, Vaginal Itching or other Musc Musculoskeletal: No abnormal walking, joint pain, back pain, deformity, joint swelling, limited range of motion, loss of height, muscle cramps, muscle weakness, decreased muscle mass, body aches, neck pain, numbness, radiating pain into limb, stiffness, tingling or other Skin Skin: No acne, hair loss, change in hair, nail changes, boil, change in skin color, dry skin, redness, excessive hair growth, yellowing of the skin, lesions, itching, rash, skin pain, skin ulcer, sores, skin swelling, wounds or other Breast Breast: No other Neuro Neurology: No frequent falls, weakness, visual disturbances, abnormal hearing, headache(s), abnormal walking, numbness or tingling Psych Psychiatric: No abnormal sleep pattern, No change in appetite Endo Endocrine: Positive for fatigue; no other or excessive sweating Aller/Imm Allergy/Immunologic: No lip swelling, tongue swelling, throat swelling, wheezing or itchy eyes Assessment AND Plan Problems 1. Hypothyroidism (acquired) E03.9 2. Uncontrolled type 2 diabetes mellitus without complication, with long-term current use of insulin E11.65; Z79.4 3. Hyperlipidemia associated with type 2 diabetes mellitus E11.69; E78.5 4. Hypertension associated with diabetes E11.59; I10 Plan Diabetes Is awakening with BG sl elevated. Will need to make adjustment in night time basaglar. Increase by 5 unit increments until am BG in range of 150. Also corrects in am and does well by high after lunch. Needs to increase lunch meal coverage, start with 5 unit increase of humalog. A1c currently 8.8 which is not controlled. Check BG 6 times daily RTC every 3 months. BG 180-300. Checking 4-6 times daily. Eye exams and foot exams up to date HTN: Well controlled currently Hyperlipidemia. On statin and TRocir In range. Hypothyroid TSH not in range. Was out of medication but back on track. Will need to recheck. Has lab req from her PCP. Orders Orders: Medications New: insulin glargine (U-100) ([id number] units (0.55 mL) Sub-Q BID E11.65 KG Gasca U-100 Insulin) Refilled: insulin lispro (U-200) (Humalog take 43 U with each meal plus slE11.9 KG Gasca U-200 Insulin) iding scale up to 150 U qd SC TI D e11.9 Discontinued: medroxyprogesterone Discontinued Reason: Pt no lo10 mg PO QDAY Sarah blackburn taking clobetasol 0.05% apply thin layer nightly x 6-12 w1 applic Topical QHS Sarah Sanchez eeks then 1-2x weekly for maintenance; massage gently into affected area Discontinued Reason: Pt no lo nger taking Plan Detail Additional Comments 1. Please schedule follow up in 3 months. 2. Lab work one week before appointment. 3. Discussed importance of regular exercise and recommend starting or continuing a regular exercise program for good health. 4. The patient was encouraged to lose weight for good health 5. The importance of monitoring blood sugar regularly was reviewed. 6. The importance of monitoring the HBA1c level regularly was reviewed. 7. The importance of prper foot care and regularly checking feet to prevent sores and loss of limbs was reviewed. 8. The importance of keeping BP at or below 130/80 to prevent stroke, heart attacks, kidney failure, blindness was reviewed. Spent approximately 45minutes with patient with over 50% of time spent in discussion and counseling regarding medication adjustment, symptoms and treatment of hypoglycemia, diet adherence, and checking BG before driving. Coding Level of Care Code Off vis,est,level 4 Diagnoses Hypothyroidism (acquired) E03.9 Uncontrolled type 2 diabetes mellitus without complication, with long-term current use of insulin E11.65; Z79.4 Diabetes mellitus fci insulin use: with fci use Diabetes mellitus complication status: without complication Hyperlipidemia associated with type 2 diabetes mellitus E11.69; E78.5 Hypertension associated with diabetes E11.59; I10 09/05/17 0757 <Electronically signed by Elizabeth SAUL> Date Elizabeth James Felicia LAZCANO-C Cosigner Signature: Date (if applicable) CC: HEMOGLOBIN A1C Collected: 08/26/2017 Status: F Source: [place] 10:26 AM [facility] REPOSITORY Order Comment: Order Date: 09/13/16 Order Info: [id number] - *HgA1C TYPE CODE TESTS RESULT OUT OF RANGE REFERENCE UNITS LAB L501.9985 4.2-6.3 % High HGB A1C 8.8 Performed By: #### L501.9985 #### [facility] [address] [place], [address] COMPREHENSIVE METABOLIC Collected: 08/26/2017 Status: F Source: [facility] 10:26 AM [facility] REPOSITORY TYPE CODE TESTS RESULT OUT OF RANGE REFERENCE UNITS LAB L501.0100 74-106 mg/dL High GLU 155 Result Comment: Fasting Glucose result greater than or equal to 126 mg/dL suggests DIABETES MELLITUS per A.D.A. criteria. Please note revised GLUCOSE reference range effective 2017. LAB L501.1000 7-18 mg/dL High BUN 29 LAB L501.1100 0.55-1.02 mg/dL High CREAT,SERUM 1.21 Result Comment: The validity of the calculated GFR AND GFRAA in patients over 70 years has not been determined. Clinical correlation is essential. LAB L501.1110 >60 mL/min Low EST GFR 50 Result Comment: Non- GFR Calc LAB L501.1115 >60 mL/min Normal EST GFR - AA 60 Result Comment: GFR Calc LAB L501.1300 10-20 RATIO High BUN/CRE 24.0 LAB L501.1500 6.4-8.2 g/dL High T PROT 8.3 LAB L501.1800 3.2-5.0 g/dL Normal ALB 4.0 LAB L501.1950 2.2-4.2 g/dL High GLOB 4.3 LAB L501.2000 0.9-2.4 RATIO Normal A/G 0.9 LAB L501.2200 8.5-10.1 mg/dL CA Normal 9.9 LAB L501.4100 15-37 U/L Normal AST 35 LAB L501.4305 45-117 U/L Low ALK P 40 LAB L501.4405 13-56 U/L Normal ALT 36 LAB L501.4600 0.20-1.00 mg/dL T Normal BILI 0.40 LAB L501.5300 136-145 mmol/L NA Normal 139 LAB L501.5600 3.5-5.1 mmol/L K Normal 4.5 LAB L501.5900 98-107 mmol/L CL Normal 101 LAB L501.6100 21.0-32.0 mmol/L Normal CO2 27.0 LAB L501.6200 5-15 Normal GAP 11 Performed By: #### L500.4050, L500.4100, L501.9520, L501.1200, L502.0500 #### [facility] [address] [place], [address] LIPID PROFILE Collected: 08/26/2017 Status: F Source: [place] 10:26 AM [facility] REPOSITORY TYPE CODE TESTS RESULT OUT OF RANGE REFERENCE UNITS LAB L501.4900 200 mg/dL Normal CHOL 155 Result Comment: <200 mg/dL Desirable 200-240 mg/dL Borderline >240 mg/dL High Risk LAB L501.5000 mg/dL High TRIG 382 Result Comment: The drugs N-Acetylcysteine and Metamizole may falsely depress this assay. Serum Triglycerides Reference Interval Normal <150 mg/dL Borderline high 150 - 199 mg/dL High 200 - 499 mg/dL Very High > or = 500 mg/dL LAB L501.6400 mg/dL Low HDL 37 Result Comment: The drugs N-Acetylcysteine and Metamizole may falsely depress this assay. Reference Range HDL <40 mg/dL Low HDL Cholesterol HDL >or= 60 mg/dL High HDL Cholesterol LAB L501.6500 0-130 mg/dL Normal LDL 42 LAB L501.6600 5-40 mg/dL High VLDL 76 Performed By: #### L500.4050, L500.4100, L501.9520, L501.1200, L502.0500 #### [facility] [address] [place], [address] THYROID STIM HORMONE Collected: 08/26/2017 Status: F Source: [place] (TSH) 10:26 AM [facility] REPOSITORY TYPE CODE TESTS RESULT OUT OF RANGE REFERENCE UNITS LAB L501.9520 0.358-3.74 uIU/mL High TSH 68.30 Performed By: #### L500.4050, L500.4100, L501.9520, L501.1200, L502.0500 #### [facility] [address] [facility] [place], [address] CREATININE, URINE Collected: 08/26/2017 Status: F Source: [place] (RANDOM) 10:26 AM [facility] REPOSITORY TYPE CODE TESTS RESULT OUT OF RANGE REFERENCE UNITS LAB L501.1200 NO RANGE EST. mg/dL Normal UR CREAT 122.00 Performed By: #### L500.4050, L500.4100, L501.9520, L501.1200, L502.0500 #### [facility] [address] [facility] [place], [address] MICROALBUMIN,RANDOM URINE Collected: Status: F Source: [place] 08/26/2017 10:26 AM [facility] REPOSITORY TYPE CODE TESTS RESULT OUT OF RANGE REFERENCE UNITS LAB L502.0500 NO RANGE EST. mg/L Normal 139.0 MICROALBUMIN ,UR Performed By: #### L500.4050, L500.4100, L501.9520, L501.1200, L502.0500 #### [facility] [address] [place], [address] CNPN Observed: 08/26/2017 Status: COMPLETED Source: MOLINE 12:00 AM [facility] REPOSITORY Telephone (FPWADS) COBY GALEANO ([id number]) 1965 F Date Time Provider Department 08/26/17 CHIDI BRISCOE During your visit today, we recorded the following information about you: Dinora Alcantara Bowen 08/26/2017 2:49 PM Signed Outside lab results received and placed in PCP inbox for review. Please route to BOWEN when completed for processing Dinora Alcantara Ma 08/26/2017 4:29 PM Signed Glucose 155 Chol. 155 Trig. 382 A1C 8.8 LDL 42 HDL 37 TSH 68.30 Urine micoalubmin 130 Urine creat 122 Chidi Briscoe MD 08/26/2017 5:13 PM Signed Pt is under care of the endocrine METAL WORKER at [facility]. Labs noted. Chidi Briscoe MD Allergies As of Date: 08/26/2017 (No Known Allergies) Date Reviewed: 08/09/2017 Reviewed by: Kitty Mix Ma - Fully Assessed Reason for Visit: Outside Labs-[facility] Ordered [1004] Prescriptions as of 08/26/2017 Sig: BIOTIN 5,000 MCG DISINTEGRATI* Take by mouth. CHROMIUM PICOLINATE 1,000 MCG* Take by mouth. INSULIN LISPRO (U-200) 200 UN* Inject 33-43 Units subcutaneo* INSULIN GLARGINE (U-100) 100 * Inject 48 Units subcutaneousl* ATORVASTATIN 40 MG TABLET Take 1 tablet by mouth once d* ESCITALOPRAM 20 MG TABLET Take 1 tablet by mouth once d* AMLODIPINE 10 MG TABLET Take 1 tablet by mouth once d* LOSARTAN 100 MG TABLET Take 1 tablet by mouth once d* HYDROCHLOROTHIAZIDE 50 MG TAB* Take 1 tablet by mouth once d* SPIRONOLACTONE 50 MG TABLET Take 1 tablet by mouth once d* FENOFIBRATE MICRONIZED 200 MG* Take 1 capsule by mouth once * METFORMIN ER 500 MG TABLET,EX* Take 2 tablets by mouth twice* OMEPRAZOLE 20 MG CAPSULE,MEGHAN* TAKE 1 CAPSULE BY MOUTH DAILY* GABAPENTIN 600 MG TABLET 1/2 tablet at bedtime, taper * BLOOD SUGAR DIAGNOSTIC STRIPS check blood sugars 4 times da* PEN NEEDLE, DIABETIC 32 GAUGE* Use with insulin injections 5* LEVOTHYROXINE 200 MCG TABLET TAKE 1 TABLET DAILY SIX DAYS * COENZYME Q10 100 MG CAPSULE Take 1 capsule by mouth once * FLUTICASONE 50 MCG/ACTUATION * Use 2 Sprays in each nostril * Patient not taking: Reported on 08/09/2017 CHOLECALCIFEROL (VITAMIN D3) * 1 capsule twice per day OMEGA-3 FATTY ACIDS 1,000 MG * Take 1 capsule by mouth twice* ASPIRIN 81 MG TABLET Take 81 mg by mouth. NORETHINDRONE (CONTRACEPTIVE)* Take 1 tablet by mouth once d* MULTIVITAMIN TABLET Take one(1) tablet daily. Problem List As Of Date 08/26/2017 Noted Resolved Type II diabetes mellitus, uncontrolled (HCC) [* 10/22/2015 Hypertension [I10] Adjustment disorder [F43.20] INVALID FOR* Lumbar spinal stenosis [M48.061] INVALID FOR* Thoracic or lumbosacral neuritis or radiculitis*INVALID FOR*01/28/2016 Lumbar spondylosis [M47.816] INVALID FOR*01/28/2016 Lumbar degenerative disc disease [M51.36] INVALID FOR*01/28/2016 Sacroiliac joint pain [M53.3] INVALID FOR*01/28/2016 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 Encounter Status:Closed by DINORA ALCANTARA MA on 08/26/17 PROGRESS Observed: 08/09/2017 Status: COMPLETED Source: MOLINE 2:03 PM [facility] REPOSITORY HNO ID: [id number] Author: Chidi Briscoe Service: (none) Author Type: Physician Type: Progress Notes Filed: 08/12/2017 10:46 AM Note Text: Chief Complaint Patient presents with: Physical HPI Coby Galeano is a 52 year old female who presents here today for follow-up of BP. . She has new insurance. Seeing Dr Cat/ Fiordaliza Fermin. ROSEANNE Shook for DM. Past medical history, appointments, medications, allergies reviewed. 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 - Thoracic or lumbosacral neuritis or radiculitis, unspecified 04/30/2013 - Type II or unspecified type diabetes mellitus without mention of complication, uncontrolled Previous Surgical History PAST SURGICAL HISTORY Procedure Laterality Date - FNA WITH IMAGING 06/21/12 U/S FNA left thyroid - OFFICE LEEP - PAST SURGICAL HISTORY OF heart cath - REMOVAL GALLBLADDER 1995 Cholecystectomy - SPINAL HARDWARE INFILTRATION BLOCK 05/04/2013 AT [facility] injected at L1 and S5 herniated disc Family History FAMILY HISTORY Problem Relation Age of Onset - Diabetes Mother - Heart Mother - Thyroid Mother - Colon CA or polyps [Other] [OTHER] Father - Breast Cancer Other paternal female cousin Patient Allergies ALLERGIES No Known Allergies Current Medications Current Outpatient Prescriptions on File Prior to Visit: atorvastatin (LIPITOR) 40 mg tablet Take 1 tablet by mouth once daily. escitalopram oxalate (LEXAPRO) 20 mg tablet Take 1 tablet by mouth once daily. amLODIPine (NORVASC) 10 mg tablet Take 1 tablet by mouth once daily. losartan (COZAAR) 100 mg tablet Take 1 tablet by mouth once daily. hydroCHLOROthiazide (HYDRODIURIL, ESIDRIX) 50 mg tablet Take 1 tablet by mouth once daily. spironolactone (ALDACTONE) 50 mg tablet Take 1 tablet by mouth once daily. fenofibrate (LOFIBRA) 200 mg capsule Take 1 capsule by mouth once daily. metFORMIN ER (GLUCOPHAGE XR) 500 mg 24 hr tablet Take 2 tablets by mouth twice daily. blood sugar diagnostic ([place] ULTRA TEST) test strip check blood sugars 4 times daily Dx: E11.65 Insulin: Yes omeprazole (PRILOSEC) 20 mg capsule TAKE 1 CAPSULE BY MOUTH DAILY BEFORE BREAKFAST. 1/2 HR BEFORE MEAL. insulin lispro (HUMALOG) 200 unit/mL (3 mL) injection Inject 33 Units subcutaneously w MEALS. 16 PENS Insulin [place], Disposable, (WILLIE PEN NEEDLE) 32 gauge x 5/32 ndle Use with insulin injections 5 times daily. gabapentin (NEURONTIN) 600 mg tablet Take 1 tab PO in Qam and 2 tabs PO QHS. (90 day supply) levothyroxine (SYNTHROID) 200 mcg tablet TAKE 1 TABLET DAILY SIX DAYS PER WEEK AND ONE-HALF (1/2) TABLET ONE DAY PER WEEK. coenzyme Q10 100 mg cap Take 1 capsule by mouth once daily. Cholecalciferol, Vitamin D3, (VITAMIN D) 2,000 unit cap 1 capsule twice per day omega-3 fatty acids 1,000 mg cap Take 1 capsule by mouth twice daily. Aspirin 81 mg Tab Take 81 mg by mouth. MULTIVITAMIN TAB Take one(1) tablet daily. buPROPion (WELLBUTRIN) 100 mg tablet Take 1 tablet by mouth once daily. insulin glargine (TOUJEO SOLOSTAR) 300 unit/mL (1.5 mL) inpn Inject 48 Units subcutaneously twice daily. 18 PENS fluticasone (FLONASE) 50 mcg/actuation nasal spray Use 2 Sprays in each nostril once daily. Rinse mouth after use. (Patient not taking: Reported on 08/09/2017 ) Norethindrone, Contraceptive, (ORTHO MICRONOR) 0.35 mg tablet Take 1 tablet by mouth once daily. No current facility-administered medications on file prior to visit. 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 Usually able to return to office for lunch. Exercise: Walks the dogs (labs). Diet: careful. Avoids fast foods. ROS: General: Feels well, no weight changes, fever, chills. HEENT: No sinus congestion, earache, sore throat. Cardiac: No chest pain, palpitations, shortness of breath Resp: No cough, wheeze. GI: No new reflux symptoms, food intolerance, bowel changes. : No urinary frequency, dysuria. MS: No change pain or joint complaints. L sciatica Gabapentin for neuropathic pain-was Rx'd by Dr Bains who retired. Weaning down with tolerability PHYSICAL EXAMINATION BP 139/69 (BP Site: Left Arm, BP Position: Sitting) Pulse 84 Resp 12 Wt 122.4 kg (269 lb 12.8 oz) BMI 38.63 kg/m? General: Alert and oriented, no distress, pleasant and cooperative. Ears normal. Throat and pharynx normal. Neck supple. No adenopathy or masses in the neck or supraclavicular regions. Sinuses non tender. Heart: Regular, normal S1 and S2, no murmurs, rubs, or gallops Lungs: Clear to auscultation bilaterally Abdomen: Benign Extremities: Feet/ankles without edema, posterior tibial pulses full and symmetrical Feet:Shoes and socks removed, normal distal pulses and sensitive to 10 gm monofilament Health Maintenance List ZOSTER VACCINE (SHINGRIX)(1 of 2) due on 2015 URINE ALBUMIN CREATININE RATIO due on 06/09/2016 DIABETIC FOOT EXAM due on 09/10/2016 FECAL OCCULT BLOOD due on 09/10/2016 HBA1C due on 12/01/2016 LDL due on 06/01/2017 MAMMOGRAM due on 08/18/2017 DILATED RETINAL EXAM due on 10/01/2017 INFLUENZA(1) due on 10/08/2017 PAP EVERY 5 YEARS due on 09/08/2019 HPV EVERY 5 YEARS due on 09/08/2019 DTAP,TDAP,TD(2 - Td) due on 09/13/2022 ONE PNEUMOVAX PRIOR TO AGE 65 Completed Data reviewed Lab Results Component Value Date/Time CHOL 157 06/01/2016 10:25 AM HDL 35 (L) 06/01/2016 10:25 AM LDL Unable to calculate due to increased Triglycerides. See LDL-Chol, Direct. 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 Plan: (E78.1) Hypertriglyceridemia Comment: Plan: LIPID PANEL BASIC Due for labs (Z86.2) History of anemia Comment: Plan: CBC (E55.9) Vitamin D deficiency Comment: Plan: VITAMIN D 25 HYDROXY (Z12.11) Screening for colon cancer Comment: due for colonoscopy Plan: CONSULT TO GASTROENTEROLOGY (Z83.71) Family history of colonic polyps Comment: Plan: CONSULT TO GASTROENTEROLOGY (I10) Essential hypertension, benign Comment: Plan: amLODIPine (NORVASC) 10 mg tablet, losartan (COZAAR) 100 mg tablet, hydroCHLOROthiazide (HYDRODIURIL, ESIDRIX) 50 mg tablet, spironolactone (ALDACTONE) 50 mg tablet (E11.9) Controlled type 2 diabetes mellitus without complication, without long-term current use of insulin ([facility]) Comment: Plan: metFORMIN ER (GLUCOPHAGE XR) 500 mg 24 hr tablet Signed Prescriptions Disp Refills insulin lispro (HUMALOG) 200 unit/mL (3 mL) injection Sig: Inject 33-43 Units subcutaneously w MEALS. 16 PENS GRIS: No insulin glargine (BASAGLAR KWIKPEN U-100 INSULIN) 100 unit/mL (3 mL) inpn Sig: Inject 48 Units subcutaneously twice daily. Am and bedtime GRIS: No atorvastatin (LIPITOR) 40 mg tablet 90 tablet 3 Sig: Take 1 tablet by mouth once daily. GRIS: No escitalopram oxalate (LEXAPRO) 20 mg tablet 90 tablet 1 Sig: Take 1 tablet by mouth once daily. GRIS: No amLODIPine (NORVASC) 10 mg tablet 90 tablet 3 Sig: Take 1 tablet by mouth once daily. GRIS: No losartan (COZAAR) 100 mg tablet 90 tablet 3 Sig: Take 1 tablet by mouth once daily. GRIS: No hydroCHLOROthiazide (HYDRODIURIL, ESIDRIX) 50 mg tablet 90 tablet 3 Sig: Take 1 tablet by mouth once daily. GRIS: No spironolactone (ALDACTONE) 50 mg tablet 90 tablet 3 Sig: Take 1 tablet by mouth once daily. GRIS: No fenofibrate (LOFIBRA) 200 mg capsule 90 capsule 3 Sig: Take 1 capsule by mouth once daily. GRIS: No metFORMIN ER (GLUCOPHAGE XR) 500 mg 24 hr tablet 360 tablet 3 Sig: Take 2 tablets by mouth twice daily. GRIS: No omeprazole (PRILOSEC) 20 mg capsule 90 capsule 1 Sig: TAKE 1 CAPSULE BY MOUTH DAILY BEFORE BREAKFAST. 1/2 HR BEFORE MEAL. GRIS: No gabapentin (NEURONTIN) 600 mg tablet 3 Si/2 tablet at bedtime, taper to every other day as tolerated then discontinue GRIS: No RTO: few mos. Chidi Briscoe MD CNOV Observed: 08/09/2017 Status: COMPLETED Source: MOLINE 2:00 PM [facility] REPOSITORY Office Visit (FPWADS) COBY GALEANO ([id number]) 1965 F Date Time Provider Department 08/09/17 2:00 PM CHIDI BRISCOE FPTOÑO During your visit today, we recorded the following information about you: Pulse Respiration Blood pressure Weight 84/minute 12/minute 139/69 122.4 kg Chidi Briscoe MD 08/12/2017 10:46 AM Signed Chief Complaint Patient presents with: Physical HPI Coby Galeano is a 52 year old female who presents here today for follow-up of BP. . She has new insurance. Seeing Dr Cat/ Fiordaliza Fermin. ROSEANNE Duarte for DM. Past medical history, appointments, medications, allergies reviewed. 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 - Thoracic or lumbosacral neuritis or radiculitis, unspecified 04/30/2013 - Type II or unspecified type diabetes mellitus without mention of complication, uncontrolled Previous Surgical History PAST SURGICAL HISTORY Procedure Laterality Date - FNA WITH IMAGING 06/21/12 U/S FNA left thyroid - OFFICE LEEP - PAST SURGICAL HISTORY OF heart cath - REMOVAL GALLBLADDER 1995 Cholecystectomy - SPINAL HARDWARE INFILTRATION BLOCK 05/04/2013 AT [facility] injected at L1 and S5 herniated disc Family History FAMILY HISTORY Problem Relation Age of Onset - Diabetes Mother - Heart Mother - Thyroid Mother - Colon CA or polyps [Other] [OTHER] Father - Breast Cancer Other paternal female cousin Patient Allergies ALLERGIES No Known Allergies Current Medications Current Outpatient Prescriptions on File Prior to Visit: atorvastatin (LIPITOR) 40 mg tablet Take 1 tablet by mouth once daily. escitalopram oxalate (LEXAPRO) 20 mg tablet Take 1 tablet by mouth once daily. amLODIPine (NORVASC) 10 mg tablet Take 1 tablet by mouth once daily. losartan (COZAAR) 100 mg tablet Take 1 tablet by mouth once daily. hydroCHLOROthiazide (HYDRODIURIL, ESIDRIX) 50 mg tablet Take 1 tablet by mouth once daily. spironolactone (ALDACTONE) 50 mg tablet Take 1 tablet by mouth once daily. fenofibrate (LOFIBRA) 200 mg capsule Take 1 capsule by mouth once daily. metFORMIN ER (GLUCOPHAGE XR) 500 mg 24 hr tablet Take 2 tablets by mouth twice daily. blood sugar diagnostic ([place] Thorne ULTRA TEST) test strip check blood sugars 4 times daily Dx: E11.65 Insulin: Yes omeprazole (PRILOSEC) 20 mg capsule TAKE 1 CAPSULE BY MOUTH DAILY BEFORE BREAKFAST. 1/2 HR BEFORE MEAL. insulin lispro (HUMALOG) 200 unit/mL (3 mL) injection Inject 33 Units subcutaneously w MEALS. 16 PENS Insulin [place], Disposable, (WILLIE PEN NEEDLE) 32 gauge x 5/32 ndle Use with insulin injections 5 times daily. gabapentin (NEURONTIN) 600 mg tablet Take 1 tab PO in Qam and 2 tabs PO QHS. (90 day supply) levothyroxine (SYNTHROID) 200 mcg tablet TAKE 1 TABLET DAILY SIX DAYS PER WEEK AND ONE-HALF (1/2) TABLET ONE DAY PER WEEK. coenzyme Q10 100 mg cap Take 1 capsule by mouth once daily. Cholecalciferol, Vitamin D3, (VITAMIN D) 2,000 unit cap 1 capsule twice per day omega-3 fatty acids 1,000 mg cap Take 1 capsule by mouth twice daily. Aspirin 81 mg Tab Take 81 mg by mouth. MULTIVITAMIN TAB Take one(1) tablet daily. buPROPion (WELLBUTRIN) 100 mg tablet Take 1 tablet by mouth once daily. insulin glargine (TOUJEO SOLOSTAR) 300 unit/mL (1.5 mL) inpn Inject 48 Units subcutaneously twice daily. 18 PENS fluticasone (FLONASE) 50 mcg/actuation nasal spray Use 2 Sprays in each nostril once daily. Rinse mouth after use. (Patient not taking: Reported on 08/09/2017 ) Norethindrone, Contraceptive, (ORTHO MICRONOR) 0.35 mg tablet Take 1 tablet by mouth once daily. No current facility-administered medications on file prior to visit. 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 Usually able to return to office for lunch. Exercise: Walks the dogs ([place]). Diet: careful. Avoids fast foods. ROS: General: Feels well, no weight changes, fever, chills. HEENT: No sinus congestion, earache, sore throat. Cardiac: No chest pain, palpitations, shortness of breath Resp: No cough, wheeze. GI: No new reflux symptoms, food intolerance, bowel changes. : No urinary frequency, dysuria. MS: No change pain or joint complaints. L sciatica Gabapentin for neuropathic pain-was Rx'd by Dr Bains who retired. Weaning down with tolerability PHYSICAL EXAMINATION BP 139/69 (BP Site: Left Arm, BP Position: Sitting) Pulse 84 Resp 12 Wt 122.4 kg (269 lb 12.8 oz) BMI 38.63 kg/m? General: Alert and oriented, no distress, pleasant and cooperative. Ears normal. Throat and pharynx normal. Neck supple. No adenopathy or masses in the neck or supraclavicular regions. Sinuses non tender. Heart: Regular, normal S1 and S2, no murmurs, rubs, or gallops Lungs: Clear to auscultation bilaterally Abdomen: Benign Extremities: Feet/ankles without edema, posterior tibial pulses full and symmetrical Feet:Shoes and socks removed, normal distal pulses and sensitive to 10 gm monofilament Health Maintenance List ZOSTER VACCINE (SHINGRIX)(1 of 2) due on 2015 URINE ALBUMIN CREATININE RATIO due on 06/09/2016 DIABETIC FOOT EXAM due on 09/10/2016 FECAL OCCULT BLOOD due on 09/10/2016 HBA1C due on 12/01/2016 LDL due on 06/01/2017 MAMMOGRAM due on 08/18/2017 DILATED RETINAL EXAM due on 10/01/2017 INFLUENZA(1) due on 10/08/2017 PAP EVERY 5 YEARS due on 09/08/2019 HPV EVERY 5 YEARS due on 09/08/2019 DTAP,TDAP,TD(2 - Td) due on 09/13/2022 ONE PNEUMOVAX PRIOR TO AGE 65 Completed Data reviewed Lab Results Component Value Date/Time CHOL 157 06/01/2016 10:25 AM HDL 35 (L) 06/01/2016 10:25 AM LDL Unable to calculate due to increased Triglycerides. See LDL-Chol, Direct. 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 Plan: (E78.1) Hypertriglyceridemia Comment: Plan: LIPID PANEL BASIC Due for labs (Z86.2) History of anemia Comment: Plan: CBC (E55.9) Vitamin D deficiency Comment: Plan: VITAMIN D 25 HYDROXY (Z12.11) Screening for colon cancer Comment: due for colonoscopy Plan: CONSULT TO GASTROENTEROLOGY (Z83.71) Family history of colonic polyps Comment: Plan: CONSULT TO GASTROENTEROLOGY (I10) Essential hypertension, benign Comment: Plan: amLODIPine (NORVASC) 10 mg tablet, losartan (COZAAR) 100 mg tablet, hydroCHLOROthiazide (HYDRODIURIL, ESIDRIX) 50 mg tablet, spironolactone (ALDACTONE) 50 mg tablet (E11.9) Controlled type 2 diabetes mellitus without complication, without long-term current use of insulin ([facility]) Comment: Plan: metFORMIN ER (GLUCOPHAGE XR) 500 mg 24 hr tablet Signed Prescriptions Disp Refills insulin lispro (HUMALOG) 200 unit/mL (3 mL) injection Sig: Inject 33-43 Units subcutaneously w MEALS. 16 PENS GRIS: No insulin glargine (BASAGLAR KWIKPEN U-100 INSULIN) 100 unit/mL (3 mL) inpn Sig: Inject 48 Units subcutaneously twice daily. Am and bedtime GRIS: No atorvastatin (LIPITOR) 40 mg tablet 90 tablet 3 Sig: Take 1 tablet by mouth once daily. GRIS: No escitalopram oxalate (LEXAPRO) 20 mg tablet 90 tablet 1 Sig: Take 1 tablet by mouth once daily. GRIS: No amLODIPine (NORVASC) 10 mg tablet 90 tablet 3 Sig: Take 1 tablet by mouth once daily. GRIS: No losartan (COZAAR) 100 mg tablet 90 tablet 3 Sig: Take 1 tablet by mouth once daily. GRIS: No hydroCHLOROthiazide (HYDRODIURIL, ESIDRIX) 50 mg tablet 90 tablet 3 Sig: Take 1 tablet by mouth once daily. GRIS: No spironolactone (ALDACTONE) 50 mg tablet 90 tablet 3 Sig: Take 1 tablet by mouth once daily. GRIS: No fenofibrate (LOFIBRA) 200 mg capsule 90 capsule 3 Sig: Take 1 capsule by mouth once daily. GRIS: No metFORMIN ER (GLUCOPHAGE XR) 500 mg 24 hr tablet 360 tablet 3 Sig: Take 2 tablets by mouth twice daily. GRIS: No omeprazole (PRILOSEC) 20 mg capsule 90 capsule 1 Sig: TAKE 1 CAPSULE BY MOUTH DAILY BEFORE BREAKFAST. 1/2 HR BEFORE MEAL. GRIS: No gabapentin (NEURONTIN) 600 mg tablet 3 Si/2 tablet at bedtime, taper to every other day as tolerated then discontinue GRIS: No RTO: few mos. 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] Hypertriglyceridemia [E78.1] History of anemia [Z86.2] Vitamin D deficiency [E55.9] Screening for colon cancer [Z12.11] Family history of colonic polyps [Z83.71] Essential hypertension, benign [I10] Controlled type 2 diabetes mellitus without complication, without long-term current use of insulin (HCC) [E11.9] Order(s):LIPID PANEL BASIC [SQLIPB] Order #: [id number] FUTURE COMP METABOLIC PANEL [SQCMP] Order #: [id number] FUTURE VITAMIN D 25 HYDROXY [SQVITD] Order #: [id number] FUTURE CBC [SQCBC] Order #: [id number] FUTURE HGB A1C [GQJST3R] Order #: [id number] FUTURE insulin lispro (HUMALOG) 200 unit/mL (3 mL) injectionInject 33-43 Units subcutaneously w MEALS. 16 PENSDisp: Rfl: insulin glargine (BASAGLAR KWIKPEN U-100 INSULIN) 100 unit/mL (3 mL) inpnInject 48 Units subcutaneously twice daily. Am and bedtimeDisp: Rfl: CONSULT TO GASTROENTEROLOGY [9010] Order #: [id number]: 1 atorvastatin (LIPITOR) 40 mg tabletTake 1 tablet by mouth once daily.Disp: 90 tabletRfl: 3 escitalopram oxalate (LEXAPRO) 20 mg tabletTake 1 tablet by mouth once daily.Disp: 90 tabletRfl: 1 amLODIPine (NORVASC) 10 mg tabletTake 1 tablet by mouth once daily.Disp: 90 tabletRfl: 3 losartan (COZAAR) 100 mg tabletTake 1 tablet by mouth once daily.Disp: 90 tabletRfl: 3 hydroCHLOROthiazide (HYDRODIURIL, ESIDRIX) 50 mg tabletTake 1 tablet by mouth once daily.Disp: 90 tabletRfl: 3 spironolactone (ALDACTONE) 50 mg tabletTake 1 tablet by mouth once daily.Disp: 90 tabletRfl: 3 fenofibrate (LOFIBRA) 200 mg capsuleTake 1 capsule by mouth once daily.Disp: 90 capsuleRfl: 3 metFORMIN ER (GLUCOPHAGE XR) 500 mg 24 hr tabletTake 2 tablets by mouth twice daily.Disp: 360 tabletRfl: 3 omeprazole (PRILOSEC) 20 mg capsuleTAKE 1 CAPSULE BY MOUTH DAILY BEFORE BREAKFAST. 1/2 HR BEFORE MEAL.Disp: 90 capsuleRfl: 1 gabapentin (NEURONTIN) 600 mg tablet1/2 tablet at bedtime, taper to every other day as tolerated then discontinueDisp: Rfl: 3 Prescriptions as of 08/09/2017 Sig: BIOTIN 5,000 MCG DISINTEGRATI* Take by mouth. CHROMIUM PICOLINATE 1,000 MCG* Take by mouth. INSULIN LISPRO (U-200) 200 UN* Inject 33-43 Units subcutaneo* INSULIN GLARGINE (U-100) 100 * Inject 48 Units subcutaneousl* ATORVASTATIN 40 MG TABLET Take 1 tablet by mouth once d* ESCITALOPRAM 20 MG TABLET Take 1 tablet by mouth once d* AMLODIPINE 10 MG TABLET Take 1 tablet by mouth once d* LOSARTAN 100 MG TABLET Take 1 tablet by mouth once d* HYDROCHLOROTHIAZIDE 50 MG TAB* Take 1 tablet by mouth once d* SPIRONOLACTONE 50 MG TABLET Take 1 tablet by mouth once d* FENOFIBRATE MICRONIZED 200 MG* Take 1 capsule by mouth once * METFORMIN ER 500 MG TABLET,EX* Take 2 tablets by mouth twice* OMEPRAZOLE 20 MG CAPSULE,MEGHAN* TAKE 1 CAPSULE BY MOUTH DAILY* GABAPENTIN 600 MG TABLET 1/2 tablet at bedtime, taper * BLOOD SUGAR DIAGNOSTIC STRIPS check blood sugars 4 times da* PEN NEEDLE, DIABETIC 32 GAUGE* Use with insulin injections 5* LEVOTHYROXINE 200 MCG TABLET TAKE 1 TABLET DAILY SIX DAYS * COENZYME Q10 100 MG CAPSULE Take 1 capsule by mouth once * CHOLECALCIFEROL (VITAMIN D3) * 1 capsule twice per day OMEGA-3 FATTY ACIDS 1,000 MG * Take 1 capsule by mouth twice* ASPIRIN 81 MG TABLET Take 81 mg by mouth. MULTIVITAMIN TABLET Take one(1) tablet daily. FLUTICASONE 50 MCG/ACTUATION * Use 2 Sprays in each nostril * Patient not taking: Reported on 08/09/2017 NORETHINDRONE (CONTRACEPTIVE)* Take 1 tablet by mouth once d* Problem List As Of Date 08/09/2017 Noted Resolved Type II diabetes mellitus, uncontrolled (HCC) [* 10/22/2015 Hypertension [I10] Adjustment disorder [F43.20] INVALID FOR* Lumbar spinal stenosis [M48.061] INVALID FOR* Thoracic or lumbosacral neuritis or radiculitis*INVALID FOR*01/28/2016 Lumbar spondylosis [M47.816] INVALID FOR*01/28/2016 Lumbar degenerative disc disease [M51.36] INVALID FOR*01/28/2016 Sacroiliac joint pain [M53.3] INVALID FOR*01/28/2016 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 Prescriptions ordered this encounter Disp Refills Start End INSULIN LISPRO (U-200) 200 UNIT/ML (* 08/09/2017 Class: Med Update Route: SUBCUTANEOUS Sig: Inject 33-43 Units subcutaneously w MEALS. 16 PENS INSULIN GLARGINE (U-100) 100 UNIT/ML* 08/09/2017 Class: Med Update Route: SUBCUTANEOUS Sig: Inject 48 Units subcutaneously twice daily. Am and bedtime ATORVASTATIN 40 MG TABLET 90 t* 3 08/09/2017 Route: ORAL Sig: Take 1 tablet by mouth once daily. ESCITALOPRAM 20 MG TABLET 90 t* 1 08/09/2017 Route: ORAL Sig: Take 1 tablet by mouth once daily. AMLODIPINE 10 MG TABLET 90 t* 3 08/09/2017 Route: ORAL Sig: Take 1 tablet by mouth once daily. LOSARTAN 100 MG TABLET 90 t* 3 08/09/2017 Route: ORAL Sig: Take 1 tablet by mouth once daily. HYDROCHLOROTHIAZIDE 50 MG TABLET 90 t* 3 08/09/2017 Route: ORAL Sig: Take 1 tablet by mouth once daily. SPIRONOLACTONE 50 MG TABLET 90 t* 3 08/09/2017 Route: ORAL Sig: Take 1 tablet by mouth once daily. FENOFIBRATE MICRONIZED 200 MG CAPSULE 90 c* 3 08/09/2017 Route: ORAL Sig: Take 1 capsule by mouth once daily. METFORMIN ER 500 MG TABLET,EXTENDED * 360 * 3 08/09/2017 Route: ORAL Sig: Take 2 tablets by mouth twice daily. OMEPRAZOLE 20 MG CAPSULE,DELAYED REL* 90 c* 1 08/09/2017 Sig: TAKE 1 CAPSULE BY MOUTH DAILY BEFORE BREAKFAST. 1/2 HR BEFORE MEAL. GABAPENTIN 600 MG TABLET 3 08/09/2017 11/07/2017 Class: Med Update Si/2 tablet at bedtime, taper to every other day as tolerated then discontinue Medications Discontinued During This Encounter insulin glargine (TOUJEO SOLOSTAR) 3* 18 S* 3 01/28/2016 08/09/2017 Class: [facility] Route: SUBCUTANEOUS Sig: Inject 48 Units subcutaneously twice daily. 18 PENS Disc: Reason for discontinue is not on file. insulin lispro (HUMALOG) 200 unit/mL* 16 S* 3 01/28/2016 08/09/2017 Class: [facility] Route: SUBCUTANEOUS Sig: Inject 33 Units subcutaneously w MEALS. 16 PENS Disc: Reason for discontinue is not on file. insulin glargine (BASAGLAR KWIKPEN U* 08/09/2017 Class: Historical Med Route: SUBCUTANEOUS Sig: Inject 10 Units subcutaneously. Disc: Reason for discontinue is not on file. buPROPion (WELLBUTRIN) 100 mg tablet 30 t* 2 04/29/2016 08/09/2017 Route: ORAL Sig: Take 1 tablet by mouth once daily. Disc: Lack of Efficacy atorvastatin (LIPITOR) 40 mg tablet 90 t* 3 02/21/2017 08/09/2017 Route: ORAL Sig: Take 1 tablet by mouth once daily. Disc: Reason for discontinue is not on file. escitalopram oxalate (LEXAPRO) 20 mg* 90 t* 1 02/21/2017 08/09/2017 Route: ORAL Sig: Take 1 tablet by mouth once daily. Disc: Reason for discontinue is not on file. amLODIPine (NORVASC) 10 mg tablet 90 t* 3 10/05/2016 08/09/2017 Route: ORAL Sig: Take 1 tablet by mouth once daily. Disc: Reason for discontinue is not on file. losartan (COZAAR) 100 mg tablet 90 t* 3 10/05/2016 08/09/2017 Route: ORAL Sig: Take 1 tablet by mouth once daily. Disc: Reason for discontinue is not on file. hydroCHLOROthiazide (HYDRODIURIL, ES* 90 t* 3 10/05/2016 08/09/2017 Route: ORAL Sig: Take 1 tablet by mouth once daily. Disc: Reason for discontinue is not on file. spironolactone (ALDACTONE) 50 mg tab* 90 t* 3 10/05/2016 08/09/2017 Route: ORAL Sig: Take 1 tablet by mouth once daily. Disc: Reason for discontinue is not on file. fenofibrate (LOFIBRA) 200 mg capsule 90 c* 3 10/05/2016 08/09/2017 Route: ORAL Sig: Take 1 capsule by mouth once daily. Disc: Reason for discontinue is not on file. metFORMIN ER (GLUCOPHAGE XR) 500 mg * 360 * 3 02/27/2016 08/09/2017 Class: [facility] Route: ORAL Sig: Take 2 tablets by mouth twice daily. Disc: Reason for discontinue is not on file. omeprazole (PRILOSEC) 20 mg capsule 90 c* 1 02/06/2016 08/09/2017 Sig: TAKE 1 CAPSULE BY MOUTH DAILY BEFORE BREAKFAST. 1/2 HR BEFORE MEAL. Disc: Reason for discontinue is not on file. gabapentin (NEURONTIN) 600 mg tablet 270 * 3 08/06/2015 08/09/2017 Sig: Take 1 tab PO in Qam and 2 tabs PO QHS. (90 day supply) Disc: Reason for discontinue is not on file. Encounter Status:Closed by PAVEL BRISCOE MD on 08/12/17 PROGRESS Observed: 05/04/2017 Status: COMPLETED Source: [place] 3:34 PM [facility] REPOSITORY HNO ID: [id number] Author: Kassi Edwards Service: (none) Author Type: Inspector Fuel Hose Type: Progress Notes Filed: 05/04/2017 3:36 PM Note Text: Certified mail receipt was received today, signed by the patient. Kassi Edwards MA PROGRESS Observed: 04/15/2017 Status: COMPLETED Source: [place] 12:39 PM [facility] REPOSITORY HNO ID: [id number] Author: Kassi Edwards Service: (none) Author Type: Inspector Fuel Hose Type: Progress Notes Filed: 04/15/2017 12:42 PM Note Text: Mailed certified letter PROGRESS Observed: 04/15/2017 Status: COMPLETED Source: [place] 12:39 PM [facility] REPOSITORY HNO ID: [id number] Author: Kassi Edwards Service: (none) Author Type: Inspector Fuel Hose Type: Progress Notes Filed: 04/15/2017 12:42 PM Note Text: I have attempted to contact this patient by phone to return their call, schedule an appointment, discuss lab results, etc. Left message to call back. PROGRESS Observed: 04/14/2017 Status: COMPLETED Source: [place] 8:42 AM [facility] REPOSITORY HNO ID: [id number] Author: Kassi Edwards Service: (none) Author Type: Inspector Fuel Hose Type: Progress Notes Filed: 04/15/2017 12:42 PM Note Text: I have attempted to contact this patient by phone to return their call, schedule an appointment, discuss lab results, etc. Left message to call back. PROGRESS Observed: 04/12/2017 Status: COMPLETED Source: [place] 4:35 PM [facility] REPOSITORY HNO ID: [id number] Author: Kassi Edwards Service: (none) Author Type: Inspector Fuel Hose Type: Progress Notes Filed: 04/15/2017 12:42 PM Note Text: I have attempted to contact this patient by phone to return their call, schedule an appointment, discuss lab results, etc. Left message to call back. PROGRESS Observed: 04/11/2017 Status: COMPLETED Source: [place] 8:40 AM [facility] REPOSITORY HNO ID: [id number] Author: Kassi Edwards Service: (none) Author Type: Inspector Fuel Hose Type: Progress Notes Filed: 04/15/2017 12:42 PM Note Text: PHMA TEAMLET DOCUMENTATION Provider Action/FYI: patient needs appointment labs are ordered Needs foot Exam Patient cancelled last appointment PSR Action/FYI: please call patient schedule appointment with Dr. Briscoe [employer] has identified patient by name and date of . Team: Dr. Briscoe ? Last Office Visit:Visit date not found ? Next Office Visit: Visit date not found ? Last BP/Labs: Blood Pressure: Last 3 Encounter BP Readings: Date: BP: 04/29/2016 140/66 01/28/2016 135/68 10/15/2015 140/72 Lipids: Cholesterol, Total (mg/dL) Date Value 06/01/2016 157 06/10/2015 157 HDL Cholesterol (mg/dL) Date Value 06/01/2016 35 06/10/2015 27 LDL Cholesterol (mg/dL) Date Value 06/01/2016 Unable to calculate due to increased Triglycerides. See LDL-Chol, Direct. 06/10/2015 Unable to calculate due to increased Triglycerides. See LDL-Chol, Direct. Triglyceride (mg/dL) Date Value 06/01/2016 534 06/10/2015 650 HGB A1C: Lab Results Component Value Date HBA1C 9.2 06/01/2016 HBA1C 9.5 09/09/2015 HBA1C 9.9 06/10/2015 TSH: TSH (uU/mL) Date Value 06/10/2015 0.392 05/16/2014 0.510 ) Care Gap: DM - Need Urine Albumin / NOT checked in last 12 months Plan: ? Confirm PCP / Status ? Type of appointment needed: Follow-up ? Consultation Appointments: ? Labs, HM and Immunization: Diabetic Foot Exam hgbA1c Lipids CMP IFOBT TSH Kassi Edwards MA CNPTOUTREACH Observed: 04/11/2017 Status: COMPLETED Source: [place] 12:00 AM [facility] REPOSITORY Patient Outreach (FAMPWS) COBY GALEANO ([id number]) 1965 F Date Time Provider Department 04/11/17 KASSI EDWARDS) FAMPWS During your visit today, we recorded the following information about you: Kassi Edwards MA 04/15/2017 12:42 PM Signed PHMA TEAMLET DOCUMENTATION Provider Action/FYI: patient needs appointment labs are ordered Needs foot Exam Patient cancelled last appointment PSR Action/FYI: please call patient schedule appointment with Dr. Briscoe [employer] has identified patient by name and date of . Team: Dr. Briscoe ? Last Office Visit:Visit date not found ? Next Office Visit: Visit date not found ? Last BP/Labs: Blood Pressure: Last 3 Encounter BP Readings: Date: BP: 04/29/2016 140/66 01/28/2016 135/68 10/15/2015 140/72 Lipids: Cholesterol, Total (mg/dL) Date Value 06/01/2016 157 06/10/2015 157 HDL Cholesterol (mg/dL) Date Value 06/01/2016 35 06/10/2015 27 LDL Cholesterol (mg/dL) Date Value 06/01/2016 Unable to calculate due to increased Triglycerides. See LDL-Chol, Direct. 06/10/2015 Unable to calculate due to increased Triglycerides. See LDL-Chol, Direct. Triglyceride (mg/dL) Date Value 06/01/2016 534 06/10/2015 650 HGB A1C: Lab Results Component Value Date HBA1C 9.2 06/01/2016 HBA1C 9.5 09/09/2015 HBA1C 9.9 06/10/2015 TSH: TSH (uU/mL) Date Value 06/10/2015 0.392 05/16/2014 0.510 ) Care Gap: DM - Need Urine Albumin / NOT checked in last 12 months Plan: ? Confirm PCP / Status ? Type of appointment needed: Follow-up ? Consultation Appointments: ? Labs, HM and Immunization: Diabetic Foot Exam hgbA1c Lipids CMP IFOBT TSH BOWEN Gonzalez MA 04/15/2017 12:42 PM Signed I have attempted to contact this patient by phone to return their call, schedule an appointment, discuss lab results, etc. Left message to call back. Kassi Edwards MA 04/15/2017 12:42 PM Signed I have attempted to contact this patient by phone to return their call, schedule an appointment, discuss lab results, etc. Left message to call back. Kassi Edwards MA 04/15/2017 12:42 PM Signed I have attempted to contact this patient by phone to return their call, schedule an appointment, discuss lab results, etc. Left message to call back. Kassi Edwards MA 04/15/2017 12:42 PM Signed Mailed certified letter Kassi Edwards MA 05/04/2017 3:36 PM Signed Certified mail receipt was received today, signed by the patient. Kassi Edwards MA Allergies As of Date: 04/11/2017 (No Known Allergies) Date Reviewed: 04/29/2016 Reviewed by: Melissa Romano Ma - Fully Assessed Reason for Visit: PHMA/Care Gap Outreach [[id number]] Prescriptions as of 04/11/2017 Sig: ATORVASTATIN 40 MG TABLET Take 1 tablet by mouth once d* ESCITALOPRAM 20 MG TABLET Take 1 tablet by mouth once d* AMLODIPINE 10 MG TABLET Take 1 tablet by mouth once d* LOSARTAN 100 MG TABLET Take 1 tablet by mouth once d* HYDROCHLOROTHIAZIDE 50 MG TAB* Take 1 tablet by mouth once d* SPIRONOLACTONE 50 MG TABLET Take 1 tablet by mouth once d* FENOFIBRATE MICRONIZED 200 MG* Take 1 capsule by mouth once * BUPROPION HCL 100 MG TABLET Take 1 tablet by mouth once d* METFORMIN ER 500 MG TABLET,EX* Take 2 tablets by mouth twice* BLOOD SUGAR DIAGNOSTIC STRIPS check blood sugars 4 times da* OMEPRAZOLE 20 MG CAPSULE,MEGHAN* TAKE 1 CAPSULE BY MOUTH DAILY* INSULIN LISPRO (U-200) 200 UN* Inject 33 Units subcutaneousl* INSULIN GLARGINE (U-300) 300 * Inject 48 Units subcutaneousl* PEN NEEDLE, DIABETIC 32 GAUGE* Use with insulin injections 5* GABAPENTIN 600 MG TABLET Take 1 tab PO in Qam and 2 ta* LEVOTHYROXINE 200 MCG TABLET TAKE 1 TABLET DAILY SIX DAYS * COENZYME Q10 100 MG CAPSULE Take 1 capsule by mouth once * FLUTICASONE 50 MCG/ACTUATION * Use 2 Sprays in each nostril * CHOLECALCIFEROL (VITAMIN D3) * 1 capsule twice per day OMEGA-3 FATTY ACIDS 1,000 MG * Take 1 capsule by mouth twice* ASPIRIN 81 MG TABLET Take 81 mg by mouth. NORETHINDRONE (CONTRACEPTIVE)* Take 1 tablet by mouth once d* MULTIVITAMIN TABLET Take one(1) tablet daily. 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 Letter Text Chidi Briscoe MD [id number] [facility] [address] Kassi Edwards MA, Population Health M.A. April 15, 2017 Coby Galeano [address] [facility] [address] Dear Mrs. Galeano In an effort to serve your healthcare needs, it has come to the attention of Chidi Briscoe MD, your Primary Care Provider, that you are overdue for routine health care. We've attempted to contact you and have been unsuccessful. Please call the office at [phone] to schedule an appointment for Follow Up. In addition, you are due for the following health maintenance Health Maintenance Due: URINE ALBUMIN CREATININE RATIO due on 06/09/2016 DIABETIC FOOT EXAM due on 09/10/2016 FECAL OCCULT BLOOD due on 09/10/2016 INFLUENZA(1) due on 10/08/2016 HBA1C due on 12/01/2016 If any of these routine health care items were completed by an outside facility, please have that office fax the results to [phone] Attn: Chidi Briscoe MD or bring the records with you to your appointment. We will gladly update your record. If you have any questions, please feel free to call the office at [phone] or message us via [employer]. Thank you for choosing the [facility]. Sincerely, Kassi Edwards MA, [facility].A. (electronically signed to expedite mailing) Encounter Status:Closed by KASSI EDWARDS on 04/15/17 PROGRESS Observed: 03/09/2017 Status: COMPLETED Source: [place] 10:03 AM [facility] REPOSITORY HNO ID: [id number] Author: Kassi Edwards Service: (none) Author Type: Inspector Fuel Hose Type: Progress Notes Filed: 03/09/2017 3:57 PM Note Text: The patient has been identified by name and date of : YES I have scheduled the patient for an appointment on Visit date 03-24-17 The patient will report to the lab prior to the visit. I have pended the following lab orders: CMP HgbA1c Lipid TSH Urine Albumin PHMA Documentation 03/09/2017 Opts out of [facility] No DM2 with No Urine Alb Lab Ordered DM2 with No DFE Record Requested A1C > 8.9 Lab Ordered CRCS FOBT mailed Kassi Edwards MA PROGRESS Observed: 03/09/2017 Status: COMPLETED Source: [place] 9:53 AM [facility] REPOSITORY HNO ID: [id number] Author: Kassi Edwards Service: (none) Author Type: Inspector Fuel Hose Type: Progress Notes Filed: 03/09/2017 3:57 PM Note Text: Please file the order for Kassi Romero MA PROGRESS Observed: 03/08/2017 Status: COMPLETED Source: [place] 10:56 AM [facility] REPOSITORY HNO ID: [id number] Author: Chidi Briscoe Service: (none) Author Type: Physician Type: Progress Notes Filed: 03/09/2017 3:57 PM Note Text: Orders placed. Patient Outreach on 03/08/17 -LIPID PANEL BASIC -HGB A1C -ALBUMIN RANDOM URINE -COMP METABOLIC PANEL -TSH BLD Is patient planning to follow Dr. Briscoe to [place] or need to establish with new physician in [place]? F/u appt needed. Occult blood filed in another encounter. Chidi Briscoe MD PROGRESS Observed: 03/08/2017 Status: COMPLETED Source: [place] 9:48 AM [facility] REPOSITORY O ID: [id number] Author: Kassi Edwards Service: (none) Author Type: Inspector Fuel Hose Type: Progress Notes Filed: 03/09/2017 3:57 PM Note Text: PHMA TEAMLET DOCUMENTATION Provider Action/FYI: patient needs appointment Needs labs ordered , Diabetic Foot exam, IFOT, PSR Action/FYI: Teamlet has identified patient by name and date of . Team: Dr. Gera Edwards MA ? Last Office Visit:Visit date 05-03-16 ? Next Office Visit: Visit date not found ? Last BP/Labs: Blood Pressure: Last 3 Encounter BP Readings: Date: BP: 04/29/2016 140/66 01/28/2016 135/68 10/15/2015 140/72 Lipids: Cholesterol, Total (mg/dL) Date Value 06/01/2016 157 06/10/2015 157 HDL Cholesterol (mg/dL) Date Value 06/01/2016 35 06/10/2015 27 LDL Cholesterol (mg/dL) Date Value 06/01/2016 Unable to calculate due to increased Triglycerides. See LDL-Chol, Direct. 06/10/2015 Unable to calculate due to increased Triglycerides. See LDL-Chol, Direct. Triglyceride (mg/dL) Date Value 06/01/2016 534 06/10/2015 650 HGB A1C: Lab Results Component Value Date HBA1C 9.2 06/01/2016 HBA1C 9.5 09/09/2015 HBA1C 9.9 06/10/2015 TSH: TSH (uU/mL) Date Value 06/10/2015 0.392 05/16/2014 0.510 ) Care Gap: DM - Need Urine Albumin / NOT checked in last 12 months Last HGBA1C is NOT under 9% HTN - Last BP NOT under 140/90 Plan: ? Confirm PCP / Status ? Type of appointment needed: MARICARMEN ? Consultation Appointments: ? Labs, HM and Immunization: Labs: Albumin Creatinine Urine HGB A1C Fecal Occult Blood Test Lipids Diabetic Foot Exam CMP TSH Kassi Edwards MA CNPTOUTREACH Observed: 03/08/2017 Status: COMPLETED Source: [place] 12:00 AM [facility] REPOSITORY Patient Outreach (FAMPWS) COBY GALEANO ([id number]) 1965 F Date Time Provider Department 03/08/17 KASSI EDWARDS) FAMPWS During your visit today, we recorded the following information about you: Kassi Edwards MA 03/09/2017 3:57 PM Signed PHMA TEAMLET DOCUMENTATION Provider Action/FYI: patient needs appointment Needs labs ordered , Diabetic Foot exam, IFOT, PSR Action/FYI: Teamlet has identified patient by name and date of . Team: Dr. Grea Edwards MA ? Last Office Visit:Visit date 05-03-16 ? Next Office Visit: Visit date not found ? Last BP/Labs: Blood Pressure: Last 3 Encounter BP Readings: Date: BP: 04/29/2016 140/66 01/28/2016 135/68 10/15/2015 140/72 Lipids: Cholesterol, Total (mg/dL) Date Value 06/01/2016 157 06/10/2015 157 HDL Cholesterol (mg/dL) Date Value 06/01/2016 35 06/10/2015 27 LDL Cholesterol (mg/dL) Date Value 06/01/2016 Unable to calculate due to increased Triglycerides. See LDL-Chol, Direct. 06/10/2015 Unable to calculate due to increased Triglycerides. See LDL-Chol, Direct. Triglyceride (mg/dL) Date Value 06/01/2016 534 06/10/2015 650 HGB A1C: Lab Results Component Value Date HBA1C 9.2 06/01/2016 HBA1C 9.5 09/09/2015 HBA1C 9.9 06/10/2015 TSH: TSH (uU/mL) Date Value 06/10/2015 0.392 05/16/2014 0.510 ) Care Gap: DM - Need Urine Albumin / NOT checked in last 12 months Last HGBA1C is NOT under 9% HTN - Last BP NOT under 140/90 Plan: ? Confirm PCP / Status ? Type of appointment needed: MARICARMEN ? Consultation Appointments: ? Labs, HM and Immunization: Labs: Albumin Creatinine Urine HGB A1C Fecal Occult Blood Test Lipids Diabetic Foot Exam CMP TSH BOWEN Gonzalez MD 03/09/2017 3:57 PM Signed Orders placed. Patient Outreach on 03/08/17 -LIPID PANEL BASIC -HGB A1C -ALBUMIN RANDOM URINE -COMP METABOLIC PANEL -TSH BLD Is patient planning to follow Dr. Briscoe to [place] or need to establish with new physician in [place]? F/u appt needed. Occult blood filed in another encounter. MD Kassi Acharya MA 03/09/2017 3:57 PM Signed Please file the order for Kassi Romero MA Kathy L Schlabach, MA 03/09/2017 3:57 PM Signed The patient has been identified by name and date of : YES I have scheduled the patient for an appointment on Visit date 03-24-17 The patient will report to the lab prior to the visit. I have pended the following lab orders: CMP HgbA1c Lipid TSH Urine Albumin PHMA Documentation 03/09/2017 Opts out of [facility] No DM2 with No Urine Alb Lab Ordered DM2 with No DFE Record Requested A1C ANDgt; 8.9 Lab Ordered CRCS FOBT mailed Kassi Edwards MA Allergies As of Date: 03/08/2017 (No Known Allergies) Date Reviewed: 04/29/2016 Reviewed by: Melissa Romano Ma - Fully Assessed Reason for Visit: PHMA/Care Gap Outreach [[id number]] Primary Visit Diagnosis:Hypertension [I10] Other Visit Diagnoses:Uncontrolled type 2 diabetes mellitus without complication, with long-term current use of insulin (HCC) [E11.65, Z79.4] Hypothyroidism, 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] Screening for hyperlipidemia [Z13.220] Encounter for screening fecal occult blood testing [Z12.11] Order(s):LIPID PANEL BASIC [SQLIPB] Order #: [id number] FUTURE HGB A1C [CFCGZ1X] Order #: [id number] FUTURE ALBUMIN RANDOM URINE [SQUALBR] Order #: [id number] FUTURE COMP METABOLIC PANEL [SQCMP] Order #: [id number] FUTURE TSH BLD [SQTSH] Order #: [id number] FUTURE Prescriptions as of 03/08/2017 Sig: ATORVASTATIN 40 MG TABLET Take 1 tablet by mouth once d* ESCITALOPRAM 20 MG TABLET Take 1 tablet by mouth once d* AMLODIPINE 10 MG TABLET Take 1 tablet by mouth once d* LOSARTAN 100 MG TABLET Take 1 tablet by mouth once d* HYDROCHLOROTHIAZIDE 50 MG TAB* Take 1 tablet by mouth once d* SPIRONOLACTONE 50 MG TABLET Take 1 tablet by mouth once d* FENOFIBRATE MICRONIZED 200 MG* Take 1 capsule by mouth once * BUPROPION HCL 100 MG TABLET Take 1 tablet by mouth once d* METFORMIN ER 500 MG TABLET,EX* Take 2 tablets by mouth twice* BLOOD SUGAR DIAGNOSTIC STRIPS check blood sugars 4 times da* OMEPRAZOLE 20 MG CAPSULE,MEGHAN* TAKE 1 CAPSULE BY MOUTH DAILY* INSULIN LISPRO 200 UNIT/ML (3* Inject 33 Units subcutaneousl* INSULIN GLARGINE 300 UNIT/ML * Inject 48 Units subcutaneousl* PEN NEEDLE, DIABETIC 32 GAUGE* Use with insulin injections 5* GABAPENTIN 600 MG TABLET Take 1 tab PO in Qam and 2 ta* LEVOTHYROXINE 200 MCG TABLET TAKE 1 TABLET DAILY SIX DAYS * COENZYME Q10 100 MG CAPSULE Take 1 capsule by mouth once * FLUTICASONE 50 MCG/ACTUATION * Use 2 Sprays in each nostril * CHOLECALCIFEROL (VITAMIN D3) * 1 capsule twice per day OMEGA-3 FATTY ACIDS 1,000 MG * Take 1 capsule by mouth twice* ASPIRIN 81 MG TABLET Take 81 mg by mouth. NORETHINDRONE (CONTRACEPTIVE)* Take 1 tablet by mouth once d* MULTIVITAMIN TABLET Take one(1) tablet daily. 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 Follow-up and Disposition History Recorded Encounter Status:Closed by PAVEL BRISCOE MD on 03/09/17 ALLERGIES ALLERGIES DATE TYPE / CODE NAME / CODE REACTION SEVERITY SOURCE 11/22/2017 Drug No Known Unknown [facility] Allergy/416 Allergies/F87583 Hospital 916800(SNOM 0388(RXNORM) Repository ED CT) Drug NO KNOWN [facility] Class/90773 ALLERGIES Main [place] 1003(SNOMED Repository CT) ENCOUNTERS ENCOUNTERS ADMIT/DISCHARGE ACCOUNT ADMITTING ENCOUNTER LOCATION SOURCE NUMBER CLASS 02/25/2018 [id number] Ambulatory [facility] ing:LAB Repository 11/22/2017/11/23/19 [id number] Ambulatory BMSBuilding:B [place] [address] .[facility] Repository 11/19/2017 [id number] Ambulatory [facility] ing:LAB Repository 08/30/2017/08/31/19 [id number] Ambulatory BMSBuilding:B [place] [address] .[facility] Repository 08/26/2017 [id number] Ambulatory [facility] ing:MTLAB Repository 08/09/2017/08/16/19 [id number] Ambulatory [address] Main [place] Repository 04/04/2017 [id number] Ambulatory BMSBuilding:B [place] SALDAÑA.[facility] Repository PAYERS PAYERS ENCOUNTER GUARANTOR PAYER SUBSCRIBER SOURCE 02/25/2018 COBY Swenson Primary DENNY E [place] [id number] JOLYNN Insurance:ANTHEMPolic [place]: [place] Number: [id number] [id number]: 567 [id number] Repository -[phone] () Date:7919-02-01AS [address], [place] [address]NB: 02/25/2018 Secondary NOT GIVENUNK [place] Insurance:SELF PAY [facility] Number: Effective Repository Date:2018-02-25 11/22/2017 COBY Swenson Primary DENNY E [place] [id number] JOLYNN Insurance:ANTHEMPolic [place]USSERDOB: [place] Number: [id number] [place] [address]Tel: 567 [id number] Repository 1629 () Date:1327-89-45IQ [address], [place] [address]AL: 11/22/2017 Secondary NOT GIVENUNK [place] Insurance:SELF PAY [facility] Number: Effective Repository Date:2017-11-22 11/19/2017 COBY Swenson Primary DENNY E [place] [id number] NEIL Insurance:ANTHEMPolic MUSSERDOB: [place] Number: [id number] [place] [address]Tel: 567 [id number] Repository [phone] () Date:2616-35-32BH [address] [address]RT: 11/19/2017 Secondary NOT GIVENUNK [place] Insurance:SELF PAY [facility] Number: Effective Repository Date:2017-11-19 08/30/2017 COBY Swenson Primary DENNY E [place] [id number] NEIL Insurance:ANTHEMPolic [place]USSERDOB: [place] Number: [id number] Hospital [address]Cek: 567 [id number] Repository [phone] () Date:7399-59-28HI [address], [place] [address]XV: 08/30/2017 Secondary COBY M [place] Insurance:HEALTH PLAN MUSSERDOB: Community OF [facility] [id number] Number: Repository [id number] Date: [facility] Cari GOTTLIEB [address]AK: 08/30/2017 Tertiary NOT GIVENUNK [place] Insurance:SELF PAY [facility] Number: Effective Repository Date:2017-08-30 08/26/2017 COBY Swenson Primary Denny [id number] [place] Insurance:ANTHEMPolic MusserDOB: Community [facility] Number: [id number] Hospital [address]Qtl: (019) [id number] Repository [phone] () Date:[id number] [address]TD: 08/26/2017 Secondary NOT GIVENUNK [place] Insurance:SELF PAY [facility] Number: Effective Repository Date:2017-08-26 04/04/2017 COBY TABARES9 Primary COBY MUSSERDOB: [place] NEIL [facility], Insurance:HEALTH PLAN [id number] [address]Vax: [facility] Number: Repository () [id number] Date: [place] [place] [facility] [address]KM: 04/04/2017 Secondary NOT GIVENUNK [place] Insurance:SELF PAY [facility] Number: Effective Repository Date:2017-02-03
== END ==
PROVIDERS: Family Provider Family Medicine; PCP Family Medicine; Referring Provider Nurse Practitioner; Visit Provider Nurse Practitioner
DX: E11.65 Type 2 diabetes mellitus with hyperglycemia (principal); E11.59 Type 2 diabetes mellitus with other circulatory complications; I10 Essential (primary) hypertension; S83.242A Other tear of medial meniscus, current injury, left knee, initial encounter; X58.XXXA Exposure to other specified factors, initial encounter; Y93.9 Activity, unspecified; Y92.9 Unspecified place or not applicable; Y99.9 Unspecified external cause status
CPT/HCPCS: 80053; 82306; 83036; 83970; 84443; 84481; 85025

== ENCOUNTER → 2018-08-25 09:52 | Outpatient (CLI) | payer BC, SELFPAY ==
[2018-03-08 08:26] VITALS: BMI 39.2
--- NOTE | 2018-08-25 10:25 | EKG12_ITS ---
Test Reason : PREOP Blood Pressure : / mmHG Vent. Rate : 080 BPM Atrial Rate : 080 BPM P-R Int : 196 ms QRS Dur : 082 ms QT Int : 368 ms P-R-T Axes : 035 -14 095 degrees QTc Int : 424 ms Normal sinus rhythm Nonspecific T wave abnormality Abnormal ECG Confirmed by ADAM GARCIA, RAJANI ([id number]), news assignment editor CHITRA MITCHELL ([id number]) on 08/28/2018 12:10:47 PM Referred By: Raudel Oconnell Confirmed By:MIRYAM MEDINA MD
[2018-08-25 11:26] LABS: Absolute Lymphocyte Count 3.33 X10^3/uL (0.83-4.51); Absolute Neutrophil Count 4.7 X10^3/uL (2.0-7.7); Basophil# 0.03 X10^3/uL; Basophil% 0.3 % (0-1); Eosinophil# 0.26 X10^3/uL; Hematocrit 38.7 % (37-47); Hemoglobin 12.5 g/dL (12.0-15.0); Lymphocyte # 3.33 X10^3/ul (4.0); Mean Corp Hgb Conc 32.3 g/dL (32-36); Mean Corpuscular Hgb 28.4 pg (27.0-32.0); Mean Platelet Vol. 10.2 fl (6.2-12.0); Monocyte# 0.45 X10^3/uL; Monocyte% 5.1 % (0-10); NRBC Flagged by Analyzer 0 % (0-5); Neutrophil # 4.65 X10^3/uL (2.7-7.7); Neutrophil % 53.1 % (47-70); Platelet Count 250 K/mm3 (150-450); RBC Distribution Width CV 14.5 % (11.6-14.6); RBC Distribution Width SD 46.4 fl (35.1-43.9); White Blood Count 8.8 K/mm3 (4.4-11.0)
[2018-08-25 11:45] LABS: Microalbumin:Creatinine Ratio 87.3 mg/g CRE (<30 mg/g CRE)
[2018-08-25 11:57] LABS: ALB/GLOB Ratio 0.9 RATIO (0.9-2.4); AST(SGOT) 38 U/L (15-37); Alanine Aminotransfer ALT/SGPT 38 U/L (13-56); Albumin, Serum 3.9 g/dL (3.2-5.0); Alkaline Phosphatase 39 U/L (45-117); Anion Gap 8 (5-15); BUN 26 mg/dL (7-18); Calcium,Total 10.1 mg/dL (8.5-10.1); Chloride 104 mmol/L (98-107); Cholesterol 172 mg/dL (200); EST Glomerular Filtration Rate 46 mL/min (>60); Est Glom Filt Rate - Afr Amer 55 mL/min (>60); Globulin 4.2 g/dL (2.2-4.2); Glucose 106 mg/dL (74-106); High Density Lipoprotein 38 mg/dL; Potassium 4.4 mmol/L (3.5-5.1); Protein, Total 8.1 g/dL (6.4-8.2); Sodium Level 140 mmol/L (136-145); Triglycerides 395 mg/dL; Very Low Density Lipoprotein 79 mg/dL (5-40)
== END ==
LOC: LAB.FUTURE 10:26 → CVS 10:26
PROVIDERS: Nurse Practitioner; Family Provider Family Medicine; PCP Family Medicine; Referring Provider Physician Assistant; Visit Provider Physician Assistant
DX: Z01.818 Encounter for other preprocedural examination (principal); Z01.810 Encounter for preprocedural cardiovascular examination; E11.9 Type 2 diabetes mellitus without complications; Z79.4 Long term (current) use of insulin
CPT/HCPCS: 36415; 80053; 80061; 82043; 82570; 85025; 93005

== ENCOUNTER → 2018-08-29 08:44 | Outpatient (CLI) | payer BC, SELFPAY ==
[2018-03-08 08:26] VITALS: BMI 39.2
--- NOTE | 2018-08-29 08:46 | BI_ITS ---
MAMMOGRAPHY - BILATERAL SCREENING 3-D TOMOSYNTHESIS REASON FOR EXAM: Female, 53 years old. Bilateral Screening 3-D tomosynthesis PERTINENT HISTORY: No significant family history. TECHNIQUE: 2-D mammograms and 3-D Tomosynthesis of the breast (s) were performed. CAD was performed. COMPARISON: None. FINDINGS: The breast composition is composed of scattered fibroglandular density. Scattered benign calcifications are seen. No dense spiculated masses or suspicious microcalcifications are identified. No architectural distortion is identified. There is no skin thickening or retraction. There has been no significant change since the prior study. BI/SCREEN MAMM (CAD) W/JACKIE BILAT IMPRESSION: No mammographic signs of malignancy. Routine yearly mammograms recommended. ASSESSMENT CATEGORY: BIRADS Category 1: Negative. A letter regarding these results will be sent to the patient by the facility within 30 days. FOLLOW UP RECOMMENDATION: Yearly follow up mammogram recommended. (A) Approximately 10% of breast cancers are not detected by mammography. A normal mammogram should not delay biopsy of a clinically suspicious abnormality. Electronically Signed: Prashant Moreno MD at 11:41 EDT , Service support ,
== END ==
PROVIDERS: Family Provider Family Medicine; PCP Family Medicine; Referring Provider Obstetrics & Gynecology; Visit Provider Obstetrics & Gynecology
DX: Z12.31 Encounter for screening mammogram for malignant neoplasm of breast (principal)
CPT/HCPCS: 77063; 77067

== ENCOUNTER → 2019-03-10 09:21 | Outpatient (CLI) | payer BC, SELFPAY ==
[2018-08-29 09:30] VITALS: BMI 39.2
[2019-03-10 11:11] LABS: Cholesterol 185 mg/dL (200); High Density Lipoprotein 31 mg/dL; T4 Free Direct 0.62 ng/dL (0.76-1.46); Triglycerides 574 mg/dL
[2019-03-16 10:20] LABS: AST(SGOT) 39 U/L (15-37); Alanine Aminotransfer ALT/SGPT 49 U/L (13-56)
== END ==
PROVIDERS: PCP Nurse Practitioner Primary Care; Referring Provider Nurse Practitioner; Visit Provider Nurse Practitioner
DX: E11.9 Type 2 diabetes mellitus without complications (principal); E03.9 Hypothyroidism, unspecified
CPT/HCPCS: 36415; 80061; 84439; 84443; 84450; 84460

== ENCOUNTER → 2019-04-20 09:37 | Outpatient (CLI) | payer BC, SELFPAY ==
[2018-08-29 09:30] VITALS: BMI 39.2
[2019-04-20 11:19] LABS: Cholesterol 157 mg/dL (200); Hemoglobin A1c 7.7 % (4.2-6.3); High Density Lipoprotein 31 mg/dL; T4 Free Direct 0.71 ng/dL (0.76-1.46); Triglycerides 435 mg/dL
== END ==
PROVIDERS: PCP Nurse Practitioner Primary Care; Referring Provider Nurse Practitioner; Visit Provider Nurse Practitioner
DX: E11.9 Type 2 diabetes mellitus without complications (principal); E03.9 Hypothyroidism, unspecified
CPT/HCPCS: 36415; 80061; 83036; 84439; 84443

== ENCOUNTER → 2019-05-12 07:08 | Outpatient (CLI) | payer BC, SELFPAY ==
[2018-08-29 09:30] VITALS: BMI 39.2
[2019-05-12 07:45] LABS: Color, Urine Yellow (Yellow); Glucose, Dipstick Normal (Normal); Ketone-Dipstick Negative (Negative); Leukocyte Esterase-Dipstick Negative /ul (Negative); Nitrite-Dipstick Negative (Negative); Occult Blood-Urine Negative /ul (Negative); Protein-Dipstick 15 mg/dl (Negative); Urine Bilirubin Dipstick Negative (Negative); Urine Clarity Clear (Clear); Urine Urobilinogen Normal (Normal)
[2019-05-12 08:06] LABS: Hemoglobin A1c 7.5 % (4.2-6.3)
[2019-05-12 08:10] LABS: Microalbumin,Random Urine 90.8 mg/L (NO RANGE EST.); Microalbumin:Creatinine Ratio 81.8 mg/g CRE (<30 mg/g CRE)
[2019-05-12 08:32] LABS: ALB/GLOB Ratio 0.9 RATIO (0.9-2.4); AST(SGOT) 28 U/L (15-37); Alanine Aminotransfer ALT/SGPT 37 U/L (13-56); Albumin, Serum 3.7 g/dL (3.2-5.0); Alkaline Phosphatase 44 U/L (45-117); Anion Gap 7 (5-15); BUN 28 mg/dL (7-18); BUN/Creat Ratio 23.1 RATIO (10-20); Calcium,Total 9.8 mg/dL (8.5-10.1); Chloride 107 mmol/L (98-107); Cholesterol 155 mg/dL (200); Creatinine, Serum 1.21 mg/dL (0.55-1.02); EST Glomerular Filtration Rate 49 mL/min (>60); Est Glom Filt Rate - Afr Amer 60 mL/min (>60); Glucose 129 mg/dL (74-106); High Density Lipoprotein 32 mg/dL; Potassium 4.6 mmol/L (3.5-5.1); Protein, Total 7.7 g/dL (6.4-8.2); Sodium Level 138 mmol/L (136-145); T4 Free Direct 0.98 ng/dL (0.76-1.46); Triglycerides 438 mg/dL
== END ==
PROVIDERS: PCP Nurse Practitioner Primary Care; Referring Provider Nurse Practitioner; Visit Provider Nurse Practitioner
DX: E11.9 Type 2 diabetes mellitus without complications (principal); E03.9 Hypothyroidism, unspecified
CPT/HCPCS: 36415; 80053; 80061; 81002; 82043; 82570; 83036; 84439; 84443

== ENCOUNTER → 2019-09-04 07:38 | Outpatient (CLI) | payer BC, SELFPAY ==
[2018-08-29 09:30] VITALS: BMI 39.2
[2019-06-15 11:15] VITALS: BMI 39.2
--- NOTE | 2019-09-04 07:38 | BI_ITS ---
MAMMOGRAPHY - BILATERAL SCREENING REASON FOR EXAM: Female, 54 years old. Routine annual screening examination. PERTINENT HISTORY: Non-contributory. TECHNIQUE: Digital bilateral breast jackie (3D mammographic acquisition) in the CC and MLO projections. 2-D mediolateral oblique (MLO) and craniocaudad (CC) views of both breasts were obtained. CAD: Full Field Digital Mammography with Computer Added Detection was performed. COMPARISON: Comparison is made with prior examination dated 08-29-18. FINDINGS: Breast Composition: There are scattered areas of fibroglandular density. There are no dominant masses or suspicious calcifications. Stable benign-appearing bilateral axillary lymph nodes. No other significant abnormalities are identified. There has been no significant change since the prior study. BI/SCREEN MAMM (CAD) W/JACKIE BILAT IMPRESSION: Stable bilateral screening mammogram. Yearly follow-up mammogram recommended. (A) ASSESSMENT CATEGORY: BIRADS Category 2: Benign. A letter regarding these results will be sent to the patient by the facility within 30 days. Approximately 10% of breast cancers are not detected by mammography. A normal mammogram should not delay biopsy of a clinically suspicious abnormality. [id number] Electronically Signed: Randall Arriaga, at 9:04 EDT , Service support ,
== END ==
PROVIDERS: Family Provider Family Medicine; PCP Nurse Practitioner Primary Care; Referring Provider Obstetrics & Gynecology; Visit Provider Obstetrics & Gynecology
DX: Z12.31 Encounter for screening mammogram for malignant neoplasm of breast (principal)
CPT/HCPCS: 77063; 77067

== ENCOUNTER → 2019-09-05 | Outpatient (CLI) | payer BC, SELFPAY ==
[2019-09-05 12:06] VITALS: BMI 39.2
[2019-09-12 08:48] LABS: HPV APTIMA, High Risk Negative (Negative)
== END | disposition home or self-care (01) ==
LOC: LABSPEC 13:29
PROVIDERS: PCP Nurse Practitioner Primary Care; Referring Provider Obstetrics & Gynecology; Visit Provider Obstetrics & Gynecology
DX: Z12.4 Encounter for screening for malignant neoplasm of cervix (principal)
CPT/HCPCS: 87624; 88175; G0145

== ENCOUNTER → 2019-09-11 11:42 | Outpatient (CLI) | payer BC, SELFPAY ==
[2019-09-11 11:01] VITALS: BMI 21.3
[2019-09-11 15:31] LABS: T4 Free Direct 1.29 ng/dL (0.76-1.46); Thyroid Stim Hormone (TSH) 1.06 uIU/mL (0.358-3.74)
== END ==
PROVIDERS: PCP Nurse Practitioner Primary Care; Referring Provider Internal Medicine Endocrinology, Diabetes & Metabolism; Visit Provider Internal Medicine Endocrinology, Diabetes & Metabolism
DX: E03.9 Hypothyroidism, unspecified (principal)
CPT/HCPCS: 36415; 84439; 84443

== ENCOUNTER 2020-04-22 19:36 | Emergency (ER) | payer BC, SELFPAY ==
[2019-12-11 11:17] VITALS: BMI 48.8
[2020-04-22 19:38] VITALS: BP 159/83; PULSE 93; RESP 18; TEMP 36.2; O2SAT 97; BMI 35.6
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
[2020-04-22] MEDS: HYDROcodone Bitartrate/Apap 5/325 Tablet PO (21:27)
[2020-04-22 21:28] VITALS: BP 158/68; PULSE 83; RESP 16; O2SAT 98
== END 2020-04-22 21:32 | disposition home or self-care (01) ==
LOC: ED 20:48
PROVIDERS: Emergency Provider Emergency Medicine; PCP Nurse Practitioner Primary Care
DX: S06.0X0A Concussion without loss of consciousness, initial encounter (principal); S39.012A Strain of muscle, fascia and tendon of lower back, initial encounter; V43.53XA Car driver injured in collision with pick-up truck in traffic accident, initial encounter
CPT/HCPCS: 70450; 72100; 99283

== ENCOUNTER → 2020-05-09 11:25 | Outpatient (CLI) | payer BC, SELFPAY ==
[2020-05-09 10:28] VITALS: BMI 35.1
[2020-05-09 12:29] LABS: Microalbumin:Creatinine Ratio 115.2 mg/g CRE (<30 mg/g CRE)
[2020-05-09 12:49] LABS: ALB/GLOB Ratio 1.1 RATIO (0.9-2.4); AST(SGOT) 34 U/L (15-37); Alanine Aminotransfer ALT/SGPT 43 U/L (13-56); Albumin, Serum 3.9 g/dL (3.2-5.0); Alkaline Phosphatase 48 U/L (45-117); Anion Gap 8 (5-15); BUN 32 mg/dL (7-18); BUN/Creat Ratio 21.2 RATIO (10-20); Calcium,Total 10.3 mg/dL (8.5-10.1); Chloride 103 mmol/L (98-107); Cholesterol 142 mg/dL (200); Creatinine, Serum 1.51 mg/dL (0.55-1.02); EST Glomerular Filtration Rate 38 mL/min (>60); Est Glom Filt Rate - Afr Amer 46 mL/min (>60); Globulin 3.6 g/dL (2.2-4.2); Glucose 167 mg/dL (74-106); High Density Lipoprotein 33 mg/dL; Potassium 4.8 mmol/L (3.5-5.1); Protein, Total 7.5 g/dL (6.4-8.2); Sodium Level 136 mmol/L (136-145); Thyroid Stim Hormone (TSH) 0.33 uIU/mL (0.358-3.74); Triglycerides 407 mg/dL
== END ==
PROVIDERS: PCP Nurse Practitioner Primary Care; Referring Provider Internal Medicine Endocrinology, Diabetes & Metabolism; Visit Provider Internal Medicine Endocrinology, Diabetes & Metabolism
DX: E11.22 Type 2 diabetes mellitus with diabetic chronic kidney disease (principal); E03.9 Hypothyroidism, unspecified; E11.69 Type 2 diabetes mellitus with other specified complication; E78.5 Hyperlipidemia, unspecified
CPT/HCPCS: 36415; 80053; 80061; 82043; 82570; 84439; 84443

== ENCOUNTER → 2020-09-01 07:40 | Outpatient (CLI) | payer BC, SELFPAY ==
[2020-05-09 10:28] VITALS: BMI 35.1
--- NOTE | 2020-09-01 07:56 | US_ITS ---
STUDY: RENAL ULTRASOUND - COMPLETE REASON FOR EXAM: Female, 55 years old. CKD3 TECHNIQUE: Ultrasound evaluation of the kidneys was performed with real-time and static segundo-scale imaging. COMPARISON: None. FINDINGS: RIGHT KIDNEY: Normal location of the right kidney, which is normal in size. The right kidney measures 12.2 cm x 6.4 cm x 5.8 cm. There is a normal cortex of the right kidney. The renal cortex measures 1.9 cm. There is no right renal mass or cyst. There are no right renal calculi. There is no right hydronephrosis. DISTAL RIGHT URETER: There is non-visualization of the distal right ureter. There is no demonstrated right ureterovesical junction calculus. There is a visualized right ureteral jet. LEFT KIDNEY: Normal location of the left kidney, which is normal in size. The left kidney measures 11.3 cm x 5.5 cm x 5.9 cm. There is a normal cortex of the left kidney. The renal cortex measures 1.7 cm. There is no left renal mass or cyst. There are no left renal calculi. There is no left hydronephrosis. DISTAL LEFT URETER: There is non-visualization of the distal left ureter. There is no demonstrated left ureterovesical junction calculus. There is a visualized left ureteral jet. BLADDER: The distended urinary bladder has a volume of 140 ml. There is a normal wall thickness of the distended urinary bladder. There is no demonstrated mass within the urinary bladder. There are no demonstrated bladder calculi. US/Kidney and Bladder IMPRESSION: Normal ultrasound of the kidneys and urinary bladder. Electronically Signed: Randall Arriaga MD at 13:34 EDT , Service support ,
[2020-09-01 08:13] LABS: Hematocrit 37.8 % (37-47); Hemoglobin 12.5 g/dL (12.0-15.0); Mean Corp Hgb Conc 33.1 g/dL (32-36); Mean Corpuscular Hgb 28.7 pg (27.0-32.0); Mean Corpuscular Volume 86.9 fL (81-99); Mean Platelet Vol. 9.7 fl (6.2-12.0); Platelet Count 227 K/mm3 (150-450); RBC Distribution Width CV 13.7 % (11.6-14.6); RBC Distribution Width SD 43.4 fl (35.1-43.9); Red Blood Count 4.35 M/mm3 (4.2-5.4); White Blood Count 8.6 K/mm3 (4.4-11.0)
[2020-09-01 08:49] LABS: Vitamin D,25 Hydroxy 59.4 ng/mL
[2020-09-01 08:50] LABS: Anion Gap 8 (5-15); BUN 26 mg/dL (7-18); Calcium,Total 9.7 mg/dL (8.5-10.1); Chloride 104 mmol/L (98-107); Creatinine, Serum 1.24 mg/dL (0.55-1.02); EST Glomerular Filtration Rate 48 mL/min (>60); Est Glom Filt Rate - Afr Amer 58 mL/min (>60); Glucose 120 mg/dL (74-106); Potassium 4.3 mmol/L (3.5-5.1); Sodium Level 137 mmol/L (136-145)
[2020-09-01 08:53] LABS: PTHIN 6.6 pg/mL (18.4-80.1)
[2020-09-01 09:33] LABS: Microalbumin:Creatinine Ratio 162.5 mg/g CRE (<30 mg/g CRE)
== END ==
PROVIDERS: PCP Nurse Practitioner Primary Care; Referring Provider Internal Medicine Nephrology; Visit Provider Internal Medicine Nephrology
DX: N18.32 Chronic kidney disease, stage 3b (principal)
CPT/HCPCS: 36415; 76770; 80048; 82043; 82306; 82570; 83970; 85027

== ENCOUNTER → 2020-10-21 08:26 | Outpatient (CLI) | payer BC, SELFPAY ==
[2020-09-08 10:17] VITALS: BMI 35.1
--- NOTE | 2020-10-21 08:29 | BI_ITS ---
MAMMOGRAPHY - BILATERAL SCREENING REASON FOR EXAM: Female, 55 years old. Routine annual screening examination. PERTINENT HISTORY: Non-contributory. TECHNIQUE: Digital bilateral breast jackie (3D mammographic acquisition) in the CC and MLO projections. 2-D mediolateral oblique (MLO) and craniocaudad (CC) views of both breasts were obtained. CAD: Full Field Digital Mammography with Computer Added Detection was performed. COMPARISON: Comparison is made with prior study dated 08/27/2019 and 08/29/2018. FINDINGS: Breast Composition: There are scattered areas of fibroglandular density. There are no dominant masses or suspicious calcifications. Stable benign-appearing bilateral axillary lymph nodes. No other significant abnormalities are identified. There has been no significant change since the prior study. BI/SCRN MAMM (CAD)W/JACKIE BILAT IMPRESSION: Stable bilateral screening mammogram. Yearly follow-up mammogram recommended. (A) ASSESSMENT CATEGORY: BIRADS Category 2: Benign. A letter regarding these results will be sent to the patient by the facility within 30 days. Approximately 10% of breast cancers are not detected by mammography. A normal mammogram should not delay biopsy of a clinically suspicious abnormality. [id number] Electronically Signed: Randall Arriaga MD at 9:43 EDT , Service support ,
== END ==
PROVIDERS: PCP Nurse Practitioner Primary Care; Referring Provider Obstetrics & Gynecology; Visit Provider Obstetrics & Gynecology
DX: Z12.31 Encounter for screening mammogram for malignant neoplasm of breast (principal)
CPT/HCPCS: 77063; 77067

== ENCOUNTER → 2021-05-29 | Outpatient (CLI) | payer BC, SELFPAY ==
[2021-05-29 10:59] LABS: Hematocrit 39.2 % (37-47); Hemoglobin 12.7 g/dL (12.0-15.0); Mean Corp Hgb Conc 32.4 g/dL (32-36); Mean Corpuscular Hgb 28.7 pg (27.0-32.0); Mean Corpuscular Volume 88.5 fL (81-99); Mean Platelet Vol. 10.2 fl (6.2-12.0); Platelet Count 254 K/mm3 (150-450); RBC Distribution Width CV 13.3 % (11.6-14.6); RBC Distribution Width SD 43.4 fl (35.1-43.9); Red Blood Count 4.43 M/mm3 (4.2-5.4); White Blood Count 9.1 K/mm3 (4.4-11.0)
[2021-05-29 11:13] LABS: Protein, Urine (Random) 73.1 mg/dL (<11.9); Protein:Creat Ratio 609 mg/g CRE (0-200)
[2021-05-29 11:27] LABS: PTHIN 6.8 pg/mL (18.4-80.1)
[2021-05-29 11:30] LABS: BUN 24 mg/dL (7-18); Glucose 139 mg/dL (74-106)
[2021-05-29 11:31] LABS: Anion Gap 7 (5-15); BUN/Creat Ratio 21.8 RATIO (10-20); Calcium,Total 9.9 mg/dL (8.5-10.1); Chloride 105 mmol/L (98-107); EST Glomerular Filtration Rate 55 mL/min (>60); Est Glom Filt Rate - Afr Amer 66 mL/min (>60); Potassium 4.4 mmol/L (3.5-5.1); Sodium Level 139 mmol/L (136-145)
== END | disposition home or self-care (01) ==
LOC: LAB 09:22
PROVIDERS: PCP Nurse Practitioner Primary Care; Visit Provider Internal Medicine Nephrology
DX: N18.31 Chronic kidney disease, stage 3a (principal)
CPT/HCPCS: 36415; 80048; 82306; 82570; 83970; 84156; 85027

== ENCOUNTER → 2021-06-26 | Outpatient (CLI) | payer BC, SELFPAY ==
[2021-06-26 12:48] LABS: Cholesterol 149 mg/dL (200); High Density Lipoprotein 40 mg/dL; T4 Free Direct 1.16 ng/dL (0.76-1.46); Thyroid Stim Hormone (TSH) 0.17 uIU/mL (0.358-3.74); Triglycerides 370 mg/dL; Very Low Density Lipoprotein 74 mg/dL (5-40)
[2021-06-26 13:21] LABS: Microalbumin:Creatinine Ratio 371.7 mg/g CRE (<30 mg/g CRE)
== END | disposition home or self-care (01) ==
LOC: BIMLAB 09:52
PROVIDERS: PCP Nurse Practitioner Primary Care; Referring Provider Nurse Practitioner Family; Visit Provider Nurse Practitioner Family
DX: E11.69 Type 2 diabetes mellitus with other specified complication (principal); E11.22 Type 2 diabetes mellitus with diabetic chronic kidney disease; Z79.4 Long term (current) use of insulin; N18.30 Chronic kidney disease, stage 3 unspecified; E78.5 Hyperlipidemia, unspecified; E03.9 Hypothyroidism, unspecified
CPT/HCPCS: 36415; 80061; 82043; 82570; 84439; 84443

== ENCOUNTER → 2021-10-26 | Outpatient (CLI) | payer BC, SELFPAY ==
--- NOTE | 2021-10-26 09:56 | BI_ITS ---
MAMMOGRAPHY - BILATERAL SCREENING 3-D TOMOSYNTHESIS REASON FOR EXAM: Female, 56 years old. breast cancer screening PERTINENT HISTORY: No significant family history. TECHNIQUE: 2-D mammograms and 3-D Tomosynthesis of the breast (s) were performed. CAD was performed. COMPARISON: 10/21/2020 FINDINGS: The breast composition is composed of scattered fibroglandular density. Scattered benign calcifications are seen. No dense spiculated masses or suspicious microcalcifications are identified. No architectural distortion is identified. There is no skin thickening or retraction. There has been no significant change since the prior study. BI/SCRN MAMM (CAD)W/JACKIE BILAT IMPRESSION: No mammographic signs of malignancy. Routine yearly mammograms recommended. ASSESSMENT CATEGORY: BIRADS Category 1: Negative. A letter regarding these results will be sent to the patient by the facility within 30 days. FOLLOW UP RECOMMENDATION: Yearly follow up mammogram recommended. (A) Approximately 10% of breast cancers are not detected by mammography. A normal mammogram should not delay biopsy of a clinically suspicious abnormality. Electronically Signed: Sudarshan Nichols MD at 10:37 EDT ,
[2021-11-02 08:55] LABS: HPV APTIMA, High Risk Negative (Negative)
== END | disposition home or self-care (01) ==
LOC: OPBI 09:54
PROVIDERS: PCP Nurse Practitioner Primary Care; Referring Provider Obstetrics & Gynecology; Visit Provider Obstetrics & Gynecology
DX: Z12.31 Encounter for screening mammogram for malignant neoplasm of breast (principal); Z12.4 Encounter for screening for malignant neoplasm of cervix
CPT/HCPCS: 77063; 77067; 87624; 88175; G0145

== ENCOUNTER → 2022-03-23 | Outpatient (CLI) | payer BC, SELFPAY ==
[2022-03-23 12:20] LABS: Vitamin D,25 Hydroxy 81.2 ng/mL
[2022-03-23 12:26] LABS: Microalbumin:Creatinine Ratio 96.4 mg/g CRE (<30 mg/g CRE)
[2022-03-23 12:27] LABS: ALB/GLOB Ratio 1.1 RATIO (0.9-2.4); AST(SGOT) 25 U/L (15-37); Alanine Aminotransfer ALT/SGPT 32 U/L (13-56); Albumin, Serum 4.1 g/dL (3.2-5.0); Alkaline Phosphatase 43 U/L (45-117); Anion Gap 9 (5-15); BUN 34 mg/dL (7-18); BUN/Creat Ratio 24.8 RATIO (10-20); Calcium,Total 10.5 mg/dL (8.5-10.1); Chloride 106 mmol/L (98-107); Cholesterol 149 mg/dL (200); Creatinine, Serum 1.37 mg/dL (0.55-1.02); EST Glomerular Filtration Rate 42 mL/min (>60); Est Glom Filt Rate - Afr Amer 51 mL/min (>60); Globulin 3.9 g/dL (2.2-4.2); Glucose 124 mg/dL (74-106); High Density Lipoprotein 40 mg/dL; Potassium 4.6 mmol/L (3.5-5.1); Sodium Level 143 mmol/L (136-145); T4 Free Direct 1.21 ng/dL (0.76-1.46); Thyroid Stim Hormone (TSH) 0.21 uIU/mL (0.358-3.74); Triglycerides 261 mg/dL; Very Low Density Lipoprotein 52 mg/dL (5-40)
== END | disposition home or self-care (01) ==
LOC: LAB 11:21
PROVIDERS: PCP Nurse Practitioner Primary Care; Referring Provider Internal Medicine Endocrinology, Diabetes & Metabolism; Visit Provider Internal Medicine Endocrinology, Diabetes & Metabolism
DX: I12.9 Hypertensive chronic kidney disease with stage 1 through stage 4 chronic kidney disease, or unspecified chronic kidney disease (principal); E11.22 Type 2 diabetes mellitus with diabetic chronic kidney disease; E11.69 Type 2 diabetes mellitus with other specified complication; E11.59 Type 2 diabetes mellitus with other circulatory complications; Z79.4 Long term (current) use of insulin; N18.30 Chronic kidney disease, stage 3 unspecified; E78.2 Mixed hyperlipidemia; E03.9 Hypothyroidism, unspecified; E55.9 Vitamin D deficiency, unspecified
CPT/HCPCS: 36415; 80053; 80061; 82043; 82306; 82570; 84439; 84443

== ENCOUNTER → 2022-07-19 | Outpatient (CLI) | payer BC, SELFPAY | END | disposition home or self-care (01) | LOC: LAB 14:17 | PROVIDERS: PCP Nurse Practitioner Primary Care; Referring Provider Internal Medicine Endocrinology, Diabetes & Metabolism; Visit Provider Internal Medicine Endocrinology, Diabetes & Metabolism | DX: E11.65 Type 2 diabetes mellitus with hyperglycemia (principal) | CPT/HCPCS: 36415; 83036 ==

== ENCOUNTER → 2022-11-01 | Outpatient (CLI) | payer BC, SELFPAY ==
--- NOTE | 2022-11-01 09:46 | BI_ITS ---
MAMMOGRAPHY - BILATERAL SCREENING REASON FOR EXAM: Female, 57 years old. Routine annual screening examination. PERTINENT HISTORY: Non-contributory. TECHNIQUE: Digital bilateral breast jackie (3D mammographic acquisition) in the CC and MLO projections. 2-D mediolateral oblique (MLO) and craniocaudad (CC) views of both breasts were obtained. CAD: Full Field Digital Mammography with Computer Added Detection was performed. COMPARISON: Comparison is made with prior study dated October 26, 2021 and October 21, 2020. FINDINGS: Breast Composition: There are scattered areas of fibroglandular density. There are no dominant masses or suspicious calcifications. Stable small benign-appearing bilateral axillary lymph nodes. No other significant abnormalities are identified. There has been no significant change since the prior study. BI/SCRN MAMM (CAD)W/JACKIE BILAT IMPRESSION: Stable bilateral screening mammogram. Yearly follow-up mammogram recommended. (A) ASSESSMENT CATEGORY: BIRADS Category 2: Benign. A letter regarding these results will be sent to the patient by the facility within 30 days. Approximately 10% of breast cancers are not detected by mammography. A normal mammogram should not delay biopsy of a clinically suspicious abnormality. [id number] Electronically Signed: Randall Arriaga MD at 13:54 EDT ,
== END | disposition home or self-care (01) ==
PROVIDERS: PCP Nurse Practitioner Primary Care; Referring Provider Obstetrics & Gynecology; Visit Provider Obstetrics & Gynecology
DX: Z12.31 Encounter for screening mammogram for malignant neoplasm of breast (principal)
CPT/HCPCS: 77063; 77067

== ENCOUNTER → 2023-06-18 | Outpatient (CLI) | payer BC, SELFPAY ==
[2023-06-18 10:19] LABS: AST(SGOT) 20 U/L (15-37); Alanine Aminotransfer ALT/SGPT 35 U/L (13-56); Albumin, Serum 3.7 g/dL (3.2-5.0); Alkaline Phosphatase 41 U/L (45-117); Anion Gap 4 (5-15); BUN 20 mg/dL (7-18); BUN/Creat Ratio 17.5 RATIO (10-20); Calcium,Total 9.6 mg/dL (8.5-10.1); Chloride 106 mmol/L (98-107); Cholesterol 140 mg/dL (200); Creatinine, Serum 1.14 mg/dL (0.55-1.02); EST Glomerular Filtration Rate 52 mL/min (>60); Est Glom Filt Rate - Afr Amer 63 mL/min (>60); Globulin 3.8 g/dL (2.2-4.2); Glucose 130 mg/dL (74-106); High Density Lipoprotein 37 mg/dL; Potassium 4.1 mmol/L (3.5-5.1); Protein, Total 7.5 g/dL (6.4-8.2); Sodium Level 139 mmol/L (136-145); T4 Free Direct 1.08 ng/dL (0.76-1.46); Thyroid Stim Hormone (TSH) 0.17 uIU/mL (0.358-3.74); Triglycerides 306 mg/dL; Very Low Density Lipoprotein 61 mg/dL (5-40)
[2023-06-20 17:01] LABS: Vitamin D,25 Hydroxy 58.4 ng/mL
== END | disposition home or self-care (01) ==
LOC: LAB 08:41
PROVIDERS: PCP Nurse Practitioner Primary Care; Referring Provider Internal Medicine Endocrinology, Diabetes & Metabolism; Visit Provider Internal Medicine Endocrinology, Diabetes & Metabolism
DX: E11.22 Type 2 diabetes mellitus with diabetic chronic kidney disease (principal); E11.59 Type 2 diabetes mellitus with other circulatory complications; E11.69 Type 2 diabetes mellitus with other specified complication; I12.9 Hypertensive chronic kidney disease with stage 1 through stage 4 chronic kidney disease, or unspecified chronic kidney disease; E78.5 Hyperlipidemia, unspecified; E03.9 Hypothyroidism, unspecified; E66.9 Obesity, unspecified; E55.9 Vitamin D deficiency, unspecified; N18.9 Chronic kidney disease, unspecified
CPT/HCPCS: 36415; 80053; 80061; 82306; 84439; 84443

== ENCOUNTER → 2023-11-07 | Outpatient (CLI) | payer BC, SELFPAY ==
--- NOTE | 2023-11-07 08:46 | BI_ITS ---
MAMMOGRAPHY - BILATERAL SCREENING 3-D TOMOSYNTHESIS REASON FOR EXAM: Female, 58 years old. screening PERTINENT HISTORY: No significant family history. TECHNIQUE: 2-D mammograms and 3-D Tomosynthesis of the breast (s) were performed. CAD was performed. COMPARISON: 11/01/2022 FINDINGS: The breast composition is composed of scattered fibroglandular density. Scattered benign calcifications are seen. No dense spiculated masses or suspicious microcalcifications are identified. No architectural distortion is identified. There is no skin thickening or retraction. There has been no significant change since the prior study. BI/SCRN MAMM (CAD)W/JACKIE BILAT IMPRESSION: No mammographic signs of malignancy. Routine yearly mammograms recommended. ASSESSMENT CATEGORY: BIRADS Category 1: Negative. A letter regarding these results will be sent to the patient by the facility within 30 days. FOLLOW UP RECOMMENDATION: Yearly follow up mammogram recommended. (A) Approximately 10% of breast cancers are not detected by mammography. A normal mammogram should not delay biopsy of a clinically suspicious abnormality. Electronically Signed: Sudarshan Nichols MD at 21:21 EDT ,
== END | disposition home or self-care (01) ==
LOC: OPBI 08:46
PROVIDERS: PCP Nurse Practitioner Primary Care; Referring Provider Obstetrics & Gynecology; Visit Provider Obstetrics & Gynecology
DX: Z12.31 Encounter for screening mammogram for malignant neoplasm of breast (principal)
CPT/HCPCS: 77063; 77067

== ENCOUNTER 2024-05-24 12:16 | Outpatient (CLI) | payer BC, SELFPAY ==
[2024-05-24 15:58] LABS: Microalbumin,Random Urine 16.8 mg/L (NO RANGE EST.)
[2024-05-24 16:34] LABS: ALB/GLOB Ratio 1.5 RATIO (0.9-2.4); AST(SGOT) 37 U/L (<=31); Alanine Aminotransfer ALT/SGPT 34 U/L (<=34); Albumin, Serum 4.5 g/dL (3.5-5.0); Alkaline Phosphatase 39 U/L (35-104); Anion Gap 13 (5-15); BUN 27 mg/dL (4-19); BUN/Creat Ratio 21.2 RATIO (10-20); Calcium,Total 10.6 mg/dL (7.6-11.0); Carbon Dioxide 22.9 mmol/L (21.0-32.0); Chloride 104 mmol/L (98-108); Cholesterol 138 mg/dL (<=200); Creatinine, Serum 1.26 mg/dL (0.70-1.20); EST Glomerular Filtration Rate 49 (>60); Glucose 88 mg/dL (70-99); High Density Lipoprotein 40 mg/dL; Low Density Lipoprotein Calc. 50 mg/dL; Potassium 4.6 mmol/L (3.3-5.1); Protein, Total 7.5 g/dL (5.9-8.4); Sodium Level 140 mmol/L (133-145); Total Bilirubin 0.34 mg/dL (0.00-1.30); Triglycerides 240 mg/dL; Very Low Density Lipoprotein 48 mg/dL (5-40); cholesterol:hdl ratio screen 3.43
[2024-05-24 16:37] LABS: Thyroid Stim Hormone (TSH) 0.778 uIU/mL (0.300-4.200)
[2024-07-26 14:40] LABS: Microalbumin:Creatinine Ratio 16.8 mg/g CRE
== END 2024-05-24 23:59 | disposition home or self-care (01) ==
LOC: BIMLAB 12:17
PROVIDERS: PCP Nurse Practitioner Primary Care; Visit Provider Internal Medicine Endocrinology, Diabetes & Metabolism
DX: E11.22 Type 2 diabetes mellitus with diabetic chronic kidney disease (principal); E11.59 Type 2 diabetes mellitus with other circulatory complications; Z79.4 Long term (current) use of insulin; E11.69 Type 2 diabetes mellitus with other specified complication; N18.30 Chronic kidney disease, stage 3 unspecified; I12.9 Hypertensive chronic kidney disease with stage 1 through stage 4 chronic kidney disease, or unspecified chronic kidney disease; E03.9 Hypothyroidism, unspecified; E78.2 Mixed hyperlipidemia
CPT/HCPCS: 36415; 80053; 80061; 82043; 82306; 82570; 84439; 84443

== ENCOUNTER → 2024-11-08 | Outpatient (CLI) | payer BC, SELFPAY ==
--- NOTE | 2024-11-08 08:30 | BI_ITS ---
EXAM: SCRN MAMM (CAD)W/JACKIE BILAT DATE: 11/08/2024 CLINICAL HISTORY: F, Age 59 y/o , SCREEN FOR BREAST CANCER Routine screening TECHNIQUE: Procedure Code: [id number] Modality: MG Procedure: SCRN MAMM (CAD)W/JACKIE BILAT COMPARISON: Prior exam(s) dated 11/07/2023. FINDINGS: TISSUE DENSITY: The breasts are almost entirely fatty. Bilateral Breast Mammographic Findings: No significant masses, calcifications or other abnormalities are identified. No interval change BI/SCRN MAMM (CAD)W/JACKIE BILAT IMPRESSION: Stable screening mammogram OVERALL FINAL ASSESSMENT BI-RADS 1: NEGATIVE. RECOMMENDATION: Routine annual follow-up in 1 Year Additional Recommendation none A letter with findings and recommendations will be mailed to the patient. Reading Location: [id number]
== END | disposition home or self-care (01) ==
LOC: OPBI 08:22
PROVIDERS: PCP Nurse Practitioner Primary Care; Referring Provider Obstetrics & Gynecology; Visit Provider Obstetrics & Gynecology
DX: Z12.31 Encounter for screening mammogram for malignant neoplasm of breast (principal)
CPT/HCPCS: 77063; 77067

== ENCOUNTER → 2024-12-28 | Outpatient (CLI) | payer BC, SELFPAY ==
--- NOTE | 2024-12-28 14:48 | US_ITS ---
PROCEDURE: THYROID 12/28/2024 REASON FOR EXAM: ASSESS NODULE TECHNIQUE: Procedure Code: USTHY Modality: US Procedure: THYROID COMPARISON: None. FINDINGS: Transcutaneous 2-D grayscale and color Doppler ultrasound of the thyroid gland was performed. MEASUREMENTS: Right lobe: 5.7 x 1.7 x 1.6 cm. Left lobe: 5.1 x 1.8 x 1.8 cm. Isthmus: 2 mm. RIGHT SIDE: Heterogeneous echotexture. No discrete lesion. LEFT SIDE: Heterogeneous echotexture. No discrete lesion. ISTHMUS: No evidence of nodule or mass. Normal vascularity without microcalcification. No enlarged lymph nodes within the visualized neck. US/Thyroid IMPRESSION: Diffusely heterogenous thyroid which can be seen with autoimmune disorders. Reading Location: [id number]
--- OUTSIDE RECORDS SUMMARY | 2024-12-28 15:44 | XMS RPT_ITS | CCD ---
Author Organization [facility] Care Team Providers Care Manufacturing Engineering Technologist Name Role Phone MIRA QUINTEROS Attending Unavailable MIRA QUINTEROS Primary Care Unavailable MIRA QUINTEROS Admitting Unavailable Mark MEDICAL VIDEOGRAPHER, MEDICAL VIDEOGRAPHER-C Olga Primary Care Provider Mark MEDICAL VIDEOGRAPHER, MEDICAL VIDEOGRAPHER-C Olga Referring Provider [phone] [phone] Attending Provider [phone] Mark MEDICAL VIDEOGRAPHER, MEDICAL VIDEOGRAPHER-C Olga Primary Care Provider Mark MEDICAL VIDEOGRAPHER, MEDICAL VIDEOGRAPHER-C Olga Referring Provider [phone] Dr. Denise Cat Attending Provider Mark MEDICAL VIDEOGRAPHER, MEDICAL VIDEOGRAPHER-C Olga Primary Care Provider Mark MEDICAL VIDEOGRAPHER, MEDICAL VIDEOGRAPHER-C Olga Referring Provider [phone] Dr. Dave Guerra Attending Provider Dr. Denise Cat Attending Provider Felton MEDICAL VIDEOGRAPHER-C, Olga Primary Care Provider [phone] Mark MEDICAL VIDEOGRAPHER-C, Olga Referring Provider [phone] Dr. Dave Guerra MD Attending Provider [phone] Mark MEDICAL VIDEOGRAPHER-C, Olga Primary Care Physician [phone] Dr. Dave Guerra MD Attending Physician Dr. Denise Cat MD Attending Physician Dr. Denise Cat MD Referring Provider [phone] Dave Guerra Attending Unavailable Mark MEDICAL VIDEOGRAPHER, Olga Primary Care Unavailable Felton MEDICAL VIDEOGRAPHER, Olga Primary Care Unavailable Felton MEDICAL VIDEOGRAPHER, Olga Referring Unavailable Denise Cat Attending Unavailable Dave Guerra Attending Unavailable Felton MEDICAL VIDEOGRAPHER, [facility] Primary Care Unavailable Mark MEDICAL VIDEOGRAPHER, Olga Referring Unavailable Felton MEDICAL VIDEOGRAPHER, Olga Referring Unavailable Felton MEDICAL VIDEOGRAPHER, [facility] Primary Care Unavailable CharlieKeei Attending Unavailable Mark MEDICAL VIDEOGRAPHER, Olga Referring Unavailable Mark MEDICAL VIDEOGRAPHER, Olga Primary Care Unavailable Dave Guerra Attending Unavailable Mark MEDICAL VIDEOGRAPHER, [facility] Primary Care Unavailable Denise Cat Referring Unavailable Denise Cat Attending Unavailable Medications Current Medications Medication Drug Class(es) Dates Sig (Normalized) Sig (Original) Blood-Glucose Meter,Continuous (Dexcom G6 Paint Brush Maker) misc (5 sources) Start: 01-28-2021 Blood-Glucose Meter,Continuous (Dexcom G6 Paint Brush Maker) misc Active 0 .ROUTE .MEDSUPPLY January 28, 2021 5:59pm As directed Start: 01-28-2021 Blood-Glucose Meter,Continuous (Dexcom G6 Paint Brush Maker) misc Active 0 .ROUTE .MEDSUPPLY January 28, 2021 1:00am As directed Blood-Glucose Sensor (Dexcom G6 Sensor) device (20 sources) Start: 06-27-2024 Blood-Glucose Sensor (Dexcom G6 Sensor) device Active 0 .ROUTE .MEDSUPPLY 9 June 27, 2024 4:28pm As directed Start: 08-02-2023 End: 06-27-2024 Blood-Glucose Sensor (Dexcom G6 Sensor) device Discontinued 0 .ROUTE .MEDSUPPLY 9 2 August 02, 2023 11:52am June 27, 2024 4:28pm As directed Start: 10-26-2022 End: 08-02-2023 Blood-Glucose Sensor (Dexcom G6 Sensor) device Discontinued 0 .ROUTE .MEDSUPPLY 9 October 26, 2022 9:40am August 02, 2023 11:53am As directed Start: 10-26-2022 Blood-Glucose Sensor (Dexcom G6 Sensor) device Active 0 .ROUTE .MEDSUPPLY October 26, 2022 9:40am As directed Start: 01-06-2022 Blood-Glucose Sensor (Dexcom G6 Sensor) device Active 0 .Route 3 January 06, 2022 1:00am Uncontrolled type 2 diabetes mellitus Type 2 diabetes mellitus with hyperglycemia 1 sensor q 10 days Start: 01-06-2022 Blood-Glucose Sensor (Dexcom G6 Sensor) device Active 0 .Route 3 January 06, 2022 1:00am 1 sensor q 10 days Start: 12-23-2020 Blood-Glucose Sensor (Dexcom G6 Sensor) device Active 0 .ROUTE .MEDSUPPLY December 23, 2020 12:09pm As directed Start: 12-23-2020 End: 10-26-2022 Blood-Glucose Sensor (Dexcom G6 Sensor) device Discontinued 0 .ROUTE .MEDSUPPLY 9 December 23, 2020 1:00am October 26, 2022 9:40am As directed Start: 12-23-2020 End: 10-26-2022 Blood-Glucose Sensor (Dexcom G6 Sensor) device Discontinued 0 .ROUTE .MEDSUPPLY December 23, 2020 1:00am October 26, 2022 9:40am As directed Start: 12-23-2020 Blood-Glucose Sensor (Dexcom G6 Sensor) device Active 0 .ROUTE .MEDSUPPLY December 23, 2020 1:00am As directed Blood-Glucose Transmitter (Dexcom G6 Transmitter) device (20 sources) Start: 05-25-2024 Blood-Glucose Transmitter (Dexcom G6 Transmitter) device Active 0 .ROUTE .MEDSUPPLY 1 2 May 25, 2024 7:55am As directed Start: 09-21-2023 End: 05-25-2024 Blood-Glucose Transmitter (D excom G6 Transmitter) device Discontinued 0 .ROUTE .MEDSUPPLY 1 2 September 21, 2023 4:46pm May 25, 2024 7:55am As directed Start: 09-03-2022 End: 09-21-2023 Blood-Glucose Transmitter (D excom G6 Transmitter) device Discontinued 0 .ROUTE .MEDSUPPLY 1 2 September 03, 2022 9:09am September 21, 2023 4:46pm As directed Start: 09-03-2022 Blood-Glucose Transmitter (Dexcom G6 Transmitter) device Active 0 .ROUTE .MEDSUPPLY September 03, 2022 9:09am As directed Start: 01-22-2022 End: 09-03-2022 Blood-Glucose Transmitter (D excom G6 Transmitter) device Discontinued 0 .ROUTE .MEDSUPPLY 1 2 January 22, 2022 1:50pm September 03, 2022 9:09am As directed Start: 01-22-2022 End: 09-03-2022 Blood-Glucose Transmitter (D excom G6 Transmitter) device Discontinued 0 .ROUTE .MEDSUPPLY 1 January 22, 2022 1:50pm September 03, 2022 9:09am As directed Start: 01-22-2022 Blood-Glucose Transmitter (Dexcom G6 Transmitter) device Active 0 .ROUTE .MEDSUPPLY 1 January 22, 2022 1:50pm As directed Start: 12-23-2020 Blood-Glucose Transmitter (Dexcom G6 Transmitter) device Active 0 .ROUTE .MEDSUPPLY December 23, 2020 12:10pm As directed Start: 12-23-2020 End: 01-22-2022 Blood-Glucose Transmitter (D excom G6 Transmitter) device Discontinued 0 .ROUTE .MEDSUPPLY 1 2 December 23, 2020 1:00am January 22, 2022 1:50pm As directed Start: 12-23-2020 End: 01-22-2022 Blood-Glucose Transmitter (D excom G6 Transmitter) device Discontinued 0 .ROUTE .MEDSUPPLY 1 December 23, 2020 1:00am January 22, 2022 1:50pm As directed Start: 12-23-2020 Blood-Glucose Transmitter (Dexcom G6 Transmitter) device Active 0 .ROUTE .MEDSUPPLY 1 December 23, 2020 1:00am As directed Blood-Glucose,Paint Brush Maker,Cont (Dexcom G6 Paint Brush Maker) misc (3 sources) Start: 01-28-2021 Blood-Glucose,Paint Brush Maker,Cont (Dexcom G6 Paint Brush Maker) misc Active 0 .ROUTE .MEDSUPPLY 1 0 January 28, 2021 1:00am As directed busPIRone hydrochloride 5 mg oral tablet (6 sources) Start: 11-07-2023 End: 01-26-2024 take 1 tablet by mouth twice daily as needed Buspirone 5 mg tablet Active 5 mg PO TWICE A DAY as needed January 26, 2024 12:15pm Complies with drug therapy cholecalciferol 0.05 mg oral capsule (11 sources) Vitamin D Start: 08-02-2023 Cholecalciferol (Vitamin D3) 50 mcg (2,000 unit) capsule Active 50 ug PO .QOD August 02, 2023 11:01am 4,000 units a day Complies with drug therapy Start: 12-23-2020 End: 08-02-2023 Cholecalciferol (Vitamin D3) 50 mcg (2,000 unit) capsule Discontinued 50 ug PO DAILY December 23, 2020 1:00am August 02, 2023 11:03am 4,000 units a day Multivitamin (Daily Multi-Vitamin) tablet (8 sources) Start: 12-23-2020 take 1 tablet by mouth once daily Multivitamin (Daily Multi-Vitamin) tablet Active 1 TABLET PO DAILY December 23, 2020 11:25am Start: 12-23-2020 Multivitamin ( Daily Multi-Vitamin) tablet Active 1 {tbl} PO DAILY December 23, 2020 1:00am Complies with drug therapy Start: 12-23-2020 Multivitamin ( Daily Multi-Vitamin) tablet Active 1 {tbl} PO DAILY December 23, 2020 1:00am Start: 12-23-2020 take 1 tablet by kingston th once daily Multivitamin (Daily Multi-Vitamin) tablet Active 1 TABLET PO DAILY December 23, 2020 1:00am Tirzepatide (2 sources) Start: 10-04-2024 Tirzepatide (M ounjaro) 10 mg/0.5 mL pen injector Active 10 mg SC EVERY WEEK 6 0 October 04, 2024 12:00am Complies with drug therapy Tirzepatide (Mounjaro) 10 mg /0.5 mL pen injector (1 source) Start: 10-04-2024 Tirzepatide (M ounjaro) 10 mg/0.5 mL pen injector Active 10 mg SC EVERY WEEK 6 0 October 04, 2024 12:00am Completed/Discontinued Medications Medication Drug Class(es) Dates Sig (Normalized) Sig (Original) acetaminophen 325 mg / HYDROcodone bitartrate 5 mg oral tablet (8 sources) Opioid Agonist Start: 04-22-2020 End: 04-25-2020 Hydrocodone-Acetami nophen 1 TABLET tablet Discontinued 1 NMA PO EVERY 6 HOURS NEEDED as needed for Pain 10 3 0 April 22, 2020 April 24, 2020 12:00am April 25, 2020 12:03am Lumbar radicular syndrome Radiculopathy, lumbar region Start: 04-22-2020 End: 04-25-2020 take 1 tablet by mouth every six hours as needed Hydrocodone-Acetaminophen Discontinued 1 TAB PO EVERY 6 HOURS NEEDED 10 April 22, 2020 April 25, 2020 12:03am amLODIPine 10 mg oral tablet (20 sources) Dihydropyridine Calcium Channel Vikki Start: 08-30-2017 End: 09-12-2023 take 1 tablet by mouth once daily Amlodipine 10 mg tablet Discontinued 10 mg PO daily 90 November 01, 2022 10:52am September 12, 2023 3:45pm aspirin 325 mg oral tablet (8 sources) Platelet Aggregation Inhibitor, Nonsteroidal Anti-inflammatory Drug Start: 08-30-2017 End: 09-08-2020 take 1 tablet by mouth once daily Aspirin 325 mg tablet Discontinued 325 mg PO daily August 30, 2017 12:00am September 08, 2020 10:16am atorvastatin 40 mg oral tablet (20 sources) HMG-CoA Reductase Inhibitor Start: 08-30-2017 End: 09-17-2024 take 1 tablet by mouth once daily Atorvastatin (Lipitor) 40 mg tablet Discontinued 40 mg PO daily 90 July 11, 2023 12:45pm September 17, 2024 1:50pm clobetasol propionate 0.0005 mg/mg topical ointment (20 sources) Corticosteroid Start: 08-29-2018 End: 11-08-2024 Clobetasol 0.05 % ointment Discontinued 1 NMA TOPICAL AT BEDTIME 180 November 12, 2019 8:50am October 26, 2021 11:15am apply thin layer; massage gently into affected area nightly x 6 weeks then 1-2x weekly Start: 04-20-2018 End: 05-18-2018 Clobetasol 0.05 % ointment D iscontinued 1 NMA TOPICAL TWICE A DAY 60 3 April 20, 2018 12:00am May 17, 2018 12:00am May 18, 2018 12:08am Start: 02-03-2017 End: 08-30-2017 Clobetasol 0.05 % ointment D iscontinued 1 NMA TOPICAL AT BEDTIME 30 3 February 03, 2017 1:00am August 30, 2017 9:34am apply thin layer nightly x 6-12 weeks then 1-2x weekly for maintenance; massage gently into affected area dapagliflozin 10 mg oral tablet (20 sources) Sodium-Glucose Cotransporter 2 Inhibitor Start: 06-17-2021 End: 10-09-2024 take 1 tablet by mouth once daily Dapagliflozin Propanediol (Farxiga) 10 mg tablet Discontinued 10 mg PO DAILY 90 1 May 14, 2024 7:50am October 09, 2024 9:24am 24 hr desvenlafaxine succinate 100 mg extended release oral tablet (16 sources) Serotonin and Norepinephrine Reuptake Inhibitor Start: 11-01-2022 End: 03-16-2024 take 1 tablet by mouth once daily, then take 1 tablet by mouth every twenty-four hours Desvenlafaxine Succinate (Pristiq) 100 mg tablet extended release 24 hr Discontinued 100 mg PO DAILY 90 0 November 01, 2023 3:17pm November 07, 2023 10:13am Dulaglutide (20 sources) GLP-1 Receptor Agonist Start: 05-09-2023 End: 08-02-2023 Dulaglutide (Trulicity) 4.5 mg/0.5 mL pen injector Discontinued 4.5 mg SC EVERY WEEK 6 May 09, 2023 10:15am August 02, 2023 11:57am Start: 12-27-2022 End: 05-09-2023 Dulaglutide (Trulicity) 4.5 mg/0.5 mL pen injector Discontinued 4.5 mg SC EVERY WEEK 6 3 December 27, 2022 9:15am May 09, 2023 10:16am Start: 03-23-2022 End: 12-27-2022 Dulaglutide (Trulicity) 4.5 mg/0.5 mL pen injector Discontinued 4.5 mg SC EVERY WEEK 6 3 March 23, 2022 1:00am December 27, 2022 9:15am Start: 03-23-2022 Dulaglutide (T rulicity) 4.5 mg/0.5 mL pen injector Active 4.5 MG SC EVERY WEEK 6 March 23, 2022 1:00am Start: 03-11-2022 End: 03-23-2022 Dulaglutide (Trulicity) 3 mg /0.5 mL pen injector Discontinued 3 mg SC EVERY WEEK 6 2 March 11, 2022 12:53pm March 23, 2022 11:55am Start: 03-11-2022 End: 03-23-2022 Dulaglutide (Trulicity) 3 mg /0.5 mL pen injector Discontinued 3 MG SC EVERY WEEK 6 March 11, 2022 12:53pm March 23, 2022 11:55am Start: 08-19-2021 End: 03-11-2022 Dulaglutide (Trulicity) 3 mg /0.5 mL pen injector Discontinued 3 mg SC EVERY WEEK 6 2 August 19, 2021 12:28pm March 11, 2022 12:53pm Start: 08-19-2021 End: 03-11-2022 Dulaglutide (Trulicity) 3 mg /0.5 mL pen injector Discontinued 3 MG SC EVERY WEEK 6 August 19, 2021 12:28pm March 11, 2022 12:53pm Start: 08-19-2021 Dulaglutide (T rulicity) 3 mg/0.5 mL pen injector Active 3 MG SC EVERY WEEK 6 August 19, 2021 12:28pm Start: 12-23-2020 Dulaglutide (T rulicity) 3 mg/0.5 mL pen injector Active 3 MG SC EVERY WEEK 6 December 23, 2020 12:03pm Start: 12-23-2020 End: 08-19-2021 Dulaglutide (Trulicity) 3 mg /0.5 mL pen injector Discontinued 3 mg SC EVERY WEEK 6 2 December 23, 2020 1:00am August 19, 2021 12:28pm Start: 12-23-2020 End: 08-19-2021 Dulaglutide (Trulicity) 3 mg /0.5 mL pen injector Discontinued 3 MG SC EVERY WEEK 6 December 23, 2020 1:00am August 19, 2021 12:28pm Start: 09-11-2019 End: 12-23-2020 Dulaglutide (Trulicity) 1.5 mg/0.5 mL pen injector Discontinued 1.5 mg SC EVERY WEEK 6 October 06, 2020 1:08pm December 23, 2020 12:03pm Start: 03-08-2018 End: 09-11-2019 Dulaglutide (Trulicity) 0.75 mg/0.5 mL pen injector Discontinued 0.75 mg SC EVERY WEEK 6 March 08, 2018 9:55am September 11, 2019 11:38am Type 2 diabetes mellitus with other specified complication escitalopram 20 mg oral tablet (16 sources) Serotonin Reuptake Inhibitor Start: 12-11-2019 End: 09-08-2020 take 1 tablet by mouth once daily Escitalopram Oxalate 20 mg tablet Discontinued 20 mg PO DAILY 90 3 December 11, 2019 1:00am September 08, 2020 10:46am Start: 08-30-2017 End: 12-11-2019 take 1 tablet by mouth once daily Escitalopram Oxalate (Lexapro) 10 mg tablet Discontinued 10 mg PO daily August 30, 2017 12:00am December 11, 2019 12:31pm fenofibrate 145 mg oral tablet (20 sources) Peroxisome Proliferator Receptor alpha Agonist Start: 08-30-2017 End: 11-07-2023 take 1 tablet by mouth once daily Fenofibrate Nanocrystallized (Tricor) 145 mg tablet Discontinued 145 mg PO daily 90 1 June 14, 2023 7:16am November 07, 2023 10:09am Flash Glucose Scanning Molino (Freestyle Moon 2 Molino) misc (8 sources) Start: 09-23-2020 End: 12-23-2020 Flash Glucose Scanning Molino (Freestyle Moon 2 Molino) misc Discontinued 0 .ROUTE .MEDSUPPLY 1 September 23, 2020 1:37pm December 23, 2020 12:09pm As directed Start: 09-23-2020 End: 12-23-2020 Flash Glucose Scanning Reade r (Freestyle Moon 2 Molino) misc Discontinued 0 .ROUTE .MEDSUPPLY 1 0 September 23, 2020 12:00am December 23, 2020 12:09pm As directed Start: 09-23-2020 End: 12-23-2020 Flash Glucose Scanning Reade r (Freestyle Moon 2 Molino) misc Discontinued 0 .ROUTE .MEDSUPPLY 1 September 23, 2020 12:00am December 23, 2020 12:09pm As directed Flash Glucose Sensor (Freest yle Moon 2 Sensor) kit (8 sources) Start: 09-23-2020 End: 12-23-2020 Flash Glucose Sensor (Freest yle Moon 2 Sensor) kit Discontinued 0 .ROUTE .MEDSUPPLY 2 September 23, 2020 1:43pm December 23, 2020 12:08pm As directed Start: 09-23-2020 End: 12-23-2020 Flash Glucose Sensor (Freest yle Moon 2 Sensor) kit Discontinued 0 .ROUTE .MEDSUPPLY 2 3 September 23, 2020 12:00am December 23, 2020 12:08pm As directed Start: 09-23-2020 End: 12-23-2020 Flash Glucose Sensor (Freest yle Moon 2 Sensor) kit Discontinued 0 .ROUTE .MEDSUPPLY 2 September 23, 2020 12:00am December 23, 2020 12:08pm As directed gabapentin 600 mg oral tablet (8 sources) Anti-epileptic Agent Start: 08-30-2017 End: 09-05-2019 take 2 tablets by mouth once daily Gabapentin 600 mg tablet Discontinued 1200 mg PO daily August 30, 2017 12:00am September 05, 2019 12:04pm Start: 08-30-2017 End: 09-05-2019 take 1200 mg by mouth once daily Gabapentin Discontinued 1200 MG PO daily August 30, 2017 12:00am September 05, 2019 12:04pm hydroCHLOROthiazide 50 mg oral tablet (8 sources) Thiazide Diuretic Start: 08-30-2017 End: 09-11-2019 take 1 tablet by mouth once daily Hydrochlorothiazide 50 mg tablet Discontinued 50 mg PO daily August 30, 2017 12:00am September 11, 2019 11:37am icosapent ethyl 1000 mg oral capsule (20 sources) Start: 12-11-2019 End: 07-05-2024 Icosapent Ethyl (Vascepa) 1 gram capsule Discontinued 2 g PO TWICE A DAY 360 May 02, 2023 12:52pm July 05, 2024 7:54am 3 ml insulin aspart, human 100 unt/ml pen injector (20 sources) Insulin Analog Start: 06-17-2021 End: 08-18-2023 Insulin Aspart U-100 (Novolog Flexpen U-100 Insulin) 100 unit/mL (3 mL) insulin pen Discontinued 0 SC .COMPLEX 180.9 October 04, 2022 1:00pm August 18, 2023 12:38pm 58 units with each meal + sliding scale up to 201 units daily SC Start: 05-09-2020 End: 06-17-2021 Insulin Aspart U-100 (Novolo g Flexpen U-100 Insulin) 100 unit/mL (3 mL) insulin pen Discontinued 0 SC .COMPLEX 153 3 May 29, 2020 5:16pm June 17, 2021 11:22am 54 units with each meal and sliding scale up to 170 units daily SC Start: 10-11-2017 End: 05-09-2020 Insulin Aspart U-100 (Novolo g Flexpen U-100 Insulin) 100 unit/mL insulin pen Discontinued 0 SC .COMPLEX 153 3 October 11, 2017 12:00am May 09, 2020 11:14am 43 units with each meal and sliding scale up to 170 units daily SC 3 ml insulin degludec 200 unt/ml pen injector (16 sources) Insulin Analog Start: 04-22-2020 End: 05-09-2020 Insulin Degludec 200 UNIT/ML insulin pen Discontinued 110 U SC AT BEDTIME April 22, 2020 7:54pm May 09, 2020 11:13am Start: 11-09-2019 End: 04-22-2020 Insulin Degludec (Tresiba Fl extouch U-200) 200 unit/mL (3 mL) insulin pen Discontinued 120 U SC AT BEDTIME 54 3 November 09, 2019 12:00am April 22, 2020 7:54pm 3 ml insulin glargine 100 unt/ml pen injector (20 sources) Insulin Analog Start: 05-09-2020 End: 08-20-2024 Insulin Glargine (Lantus Solostar U-100 Insulin) 100 unit/mL (3 mL) insulin pen Discontinued 55 U SC TWICE A DAY 99 1 March 28, 2024 10:23am August 20, 2024 7:58am Type 2 diabetes mellitus with diabetic chronic kidney disease Type 2 diabetes mellitus with diabetic chronic kidney disease Chronic kidney disease, stage 3 (moderate) care home (current) use of insulin Start: 10-26-2019 End: 11-09-2019 Insulin Glargine U-300 Conc 300 unit/mL (1.5 mL) insulin pen Discontinued 120 U SC DAILY 36 3 October 26, 2019 12:00am November 09, 2019 2:16pm Start: 09-05-2019 End: 10-26-2019 Insulin Glargine (Basaglar K alistairkpen U-100 Insulin) 100 unit/mL (3 mL) insulin pen Discontinued 100 U SC ONCE September 05, 2019 12:04pm October 26, 2019 2:24pm Type 2 diabetes mellitus with hyperglycemia Start: 05-31-2019 End: 06-15-2019 Insulin Glargine (Basaglar K wikpen U-100 Insulin) 100 unit/mL (3 mL) insulin pen Discontinued 55 U SC DAILY May 31, 2019 12:00am June 15, 2019 11:07am Start: 09-03-2017 End: 09-05-2019 Insulin Glargine (Basaglar K wikpen U-100 Insulin) 100 unit/mL (3 mL) insulin pen Discontinued 55 U SC TWICE A DAY 105 September 13, 2017 12:54pm September 05, 2019 12:05pm Type 2 diabetes mellitus with hyperglycemia Start: 08-30-2017 End: 09-03-2017 Insulin Glargine (Basaglar K wikpen U-100 Insulin) 100 unit/mL (3 mL) insulin pen Discontinued 48 U SC TWICE A DAY August 30, 2017 12:00am September 03, 2017 3:08pm 3 ml insulin lispro 200 unt/ml pen injector (20 sources) Insulin Analog Start: 03-17-2017 End: 11-22-2017 Insulin Lispro (Humalog Kwikpen Insulin) 200 unit/mL (3 mL) insulin pen Discontinued 0 SC THREE TIMES A DAY 18 September 13, 2017 12:54pm November 22, 2017 9:24am Type 2 diabetes mellitus without complications e11.9 take 43 U with each meal plus sliding scale up to 150 U qd SC TID levothyroxine sodium 0.125 mg oral tablet (20 sources) l-Thyroxine Start: 06-19-2023 End: 06-27-2024 take 1 tablet by mouth once daily Levothyroxine 125 mcg tablet Discontinued 125 ug PO DAILY 90 January 16, 2024 2:53pm June 27, 2024 4:28pm Start: 06-15-2019 End: 06-19-2023 take 1 tablet by mouth once daily Levothyroxine 150 mcg tablet Discontinued 150 ug PO DAILY 90 0 February 15, 2023 8:49am June 19, 2023 6:03pm Start: 11-22-2017 End: 06-15-2019 take 1 tablet by mouth once daily, then take 1.5 tablets by mouth once daily Levothyroxine (Levoxyl) 25 mcg tablet Discontinued 0 PO daily 110 March 13, 2018 9:24am June 15, 2019 10:04am 1 tab po qd except 1.5 pills on tue PO qd Start: 08-30-2017 End: 11-22-2017 Levothyroxine (Levoxyl) 25 m cg tablet Discontinued 0 PO daily 90 September 13, 2017 12:54pm November 22, 2017 11:03am 1 tab 6 days a week, 1/2 tab 1 day q week PO QDAY losartan potassium 100 mg oral tablet (20 sources) Angiotensin 2 Receptor Vikki Start: 08-30-2017 End: 12-05-2023 take 1 tablet by mouth once daily Losartan 100 mg tablet Discontinued 100 mg PO daily 90 December 15, 2022 1:26pm December 05, 2023 9:20am medroxyPROGESTERone acetate 10 mg oral tablet (8 sources) Progestin Start: 02-03-2017 End: 08-30-2017 take 1 tablet by mouth once daily Medroxyprogesterone 10 mg tablet Discontinued 10 mg PO daily 10 February 03, 2017 1:00am August 30, 2017 9:34am metFORMIN hydrochloride 1000 mg oral tablet (20 sources) Biguanide Start: 12-11-2019 End: 08-15-2024 take 1 tablet by mouth twice daily Metformin 1,000 mg tablet Discontinued 1000 mg PO TWICE A DAY 180 October 31, 2023 10:48am August 15, 2024 12:37pm Start: 08-30-2017 End: 12-11-2019 take 1 tablet by mouth twice daily Metformin 500 mg tablet extended release 24hr Discontinued 1000 mg PO TWICE A DAY August 30, 2017 12:00am December 11, 2019 12:25pm omeprazole 20 mg delayed release oral capsule (20 sources) Proton Pump Inhibitor Start: 05-31-2019 End: 10-04-2024 take 1 capsule by mouth once daily as needed for gastroesophageal reflux disease Omeprazole 20 mg capsule,delayed release(DR/EC) Discontinued 20 mg PO DAILY as needed for GERD September 23, 2020 1:48pm October 04, 2024 11:34am Semaglutide (3 sources) Start: 08-02-2023 End: 06-27-2024 Semaglutide (Ozempic) 1 mg/dose (4 mg/3 mL) pen injector Discontinued 1 mg SC EVERY WEEK 9 August 02, 2023 12:00am June 27, 2024 4:33pm Semaglutide (2 sources) Start: 06-27-2024 End: 10-04-2024 Semaglutide (Ozempic) 2 mg/dose (8 mg/3 mL) pen injector Discontinued 2 mg SC EVERY WEEK 9 June 27, 2024 12:00am October 04, 2024 11:45am Type 2 diabetes mellitus with diabetic chronic kidney disease Type 2 diabetes mellitus with diabetic chronic kidney disease Chronic kidney disease, stage 3 (moderate) care home (current) use of insulin Semaglutide (Ozempic) 2 mg/dose (8 mg/3 mL) pen injector (1 source) Start: 06-27-2024 End: 10-04-2024 Semaglutide (Ozempic) 2 mg/dose (8 mg/3 mL) pen injector Discontinued 2 mg SC EVERY WEEK 9 June 27, 2024 12:00am October 04, 2024 11:45am Type 2 diabetes mellitus with diabetic chronic kidney disease Type 2 diabetes mellitus with diabetic chronic kidney disease Chronic kidney disease, stage 3 (moderate) care home (current) use of insulin sertraline 100 mg oral tablet (8 sources) Serotonin Reuptake Inhibitor Start: 09-08-2020 End: 10-26-2021 take 1 tablet by mouth once daily Sertraline (Zoloft) 100 mg tablet Discontinued 100 mg PO daily 90 September 08, 2020 12:00am October 26, 2021 11:03am anxiety spironolactone 50 mg oral tablet (20 sources) Aldosterone Antagonist Start: 09-11-2019 End: 06-08-2024 take 1 tablet by mouth once daily Spironolactone 50 mg tablet Discontinued 50 mg PO DAILY 90 October 18, 2022 5:06pm August 02, 2023 11:53am Start: 08-30-2017 End: 09-11-2019 take 1 tablet by mouth once daily Spironolactone 25 mg tablet Discontinued 25 mg PO daily August 30, 2017 12:00am September 11, 2019 11:37am traZODone hydrochloride 50 mg oral tablet (9 sources) Serotonin Reuptake Inhibitor Start: 06-27-2023 End: 11-07-2023 take 1 tablet by mouth at bedtime as needed Trazodone 50 mg tablet Discontinued 50 mg PO AT BEDTIME as needed August 02, 2023 11:02am November 07, 2023 10:13am 24 hr venlafaxine 75 mg extended release oral capsule (20 sources) Serotonin and Norepinephrine Reuptake Inhibitor Start: 10-25-2022 End: 11-01-2022 Venlafaxine 75 mg capsule,extended release 24hr Discontinued 0 .ROUTE .COMPLEX 90 October 25, 2022 9:05am November 01, 2022 10:42am TAKE 1 CAPSULE DAILY. TOTALOF 225 MG DAILY Start: 10-25-2022 End: 11-01-2022 Venlafaxine 150 mg capsule,e xtended release 24hr Discontinued 0 .ROUTE .COMPLEX 90 October 25, 2022 9:05am November 01, 2022 10:42am TAKE 1 CAPSULE DAILY. TOTALOF 225 MG DAILY. Start: 10-26-2021 End: 11-01-2022 Venlafaxine 150 mg capsule,e xtended release 24hr Discontinued 150 mg PO DAILY October 26, 2021 11:10am October 25, 2022 9:05am total 225mg daily Start: 10-26-2021 End: 11-01-2022 take 3 capsules by mouth once daily Venlafaxine (Effexor Xr) 75 mg capsule,extended release 24hr Discontinued 75 mg PO DAILY 90 October 26, 2021 12:00am October 25, 2022 9:05am total 225mg daily Start: 06-17-2021 End: 10-26-2021 take 1 capsule by mouth once daily Venlafaxine 150 mg capsule,extended release 24hr Discontinued 150 mg PO DAILY 90 June 17, 2021 11:23am October 26, 2021 11:11am Start: 10-21-2020 End: 06-17-2021 take 1 capsule by mouth once daily Venlafaxine (Effexor Xr) 75 mg capsule,extended release 24hr Discontinued 75 mg PO DAILY 90 October 21, 2020 12:00am June 17, 2021 11:23am Problems Active Problems Problem Classification Problem Date Documented Date Episodic/Chronic Anxiety disorders (12 sources) Mixed anxiety and depressive disorder; Translations: [Anxiety disorder, unspecified] Onset: 11-08-2024 Chronic Comment on above: add trazodone to thea stiq, psych referral. been on zoloft and prozac, effexor, lexapro in past. failed zoloft retrial. Cancer of cervix (12 sources) Cervical intraepithelial neoplasia grade III with severe dysplasia; Translations: [Carcinoma in situ of cervix, unspecified] Onset: 11-08-2024 02-04-2017 Episodic Comment on above: leep in past Chronic kidney disease (1 source) Chronic kidney disease, stage 3 (moderate); Translations: [Chronic kidney disease, stage 3 (moderate)] Onset: 10-04-2024 Chronic Diabetes mellitus with complications (20 sources) Type 2 diabetes mellitus; Translations: [Type 2 diabetes mellitus with diabetic chronic kidney disease] Onset: 10-04-2024 Chronic Disorders of lipid metabolism (10 sources) Mixed hyperlipidemia; Translations: [Mixed hyperlipidemia] Onset: 10-04-2024 Chronic Essential hypertension (9 sources) Benign essential hypertension; Translations: [Essential (primary) hypertension] Onset: 10-04-2024 05-09-2020 Chronic Other aftercare (1 source) care home (current) use of insulin; Translations: [long term care phlebotomist (current) use of insulin] Onset: 10-04-2024 Episodic Other endocrine disorders (10 sources) Polycystic ovary; Translations: [Polycystic ovarian syndrome] 02-04-2017 Chronic Comment on above: ordered provera to julius boyer XAVIER Other endocrine disorders (1 source) Polycystic ovarian syndrome; Translations: [Polycystic ovarian syndrome] Onset: 11-08-2024 Chronic Other nutritional; endocrine; and metabolic disorders (11 sources) Obesity; Translations: [Obesity, unspecified] 11-19-2021 Chronic Other nutritional; endocrine; and metabolic disorders (2 sources) Obesity, unspecified; Translations: [Obesity, unspecified] Chronic Other nutritional; endocrine; and metabolic disorders (1 source) Other obesity due to excess calories; Translations: [Other obesity due to excess calories] Onset: 10-04-2024 Chronic Other nutritional; endocrine; and metabolic disorders (1 source) Body mass index (BMI) 32.0-32.9, adult; Translations: [Body mass index [BMI] 32.0-32.9, adult] Onset: 10-04-2024 Chronic Other screening for suspected conditions (not mental disorders or infectious disease) (1 source) Encounter for screening mammogram for malignant neoplasm of breast; Translations: [Encounter for screening mammogram for malignant neoplasm of breast] Onset: 11-14-2024 Episodic Other skin disorders (12 sources) Lichen sclerosus et atrophicus; Translations: [Lichen sclerosus et atrophicus] Onset: 11-08-2024 09-08-2020 Chronic Comment on above: clobetasol Thyroid disorders (14 sources) Acquired hypothyroidism; Translations: [Hypothyroidism, unspecified] Onset: 10-04-2024 Chronic Unclassified (2 sources) Invalid ICD10 Description; Translations: [Invalid ICD10 Description] Onset: 12-24-2019 Unclassified (1 source) COVID-19; Translations: [COVID-19] Onset: 12-24-2019 Past or Other Problems Problem Classification Problem Date Documented Da te Episodic/Chronic Unclassified (6 sources) hypothroidism 09-07-2021 Results Test Name Value Interpretation Reference Range Facil ity Breast imaging reportOrdered By: Prashant Moreno on 11-08-2024 Study report [facility] Imaging Services [address] [place] [id number] SCRN MAMM (CAD)W/JACKIE BILAT MR#: [id number] Acct: [id number] Name: COBY ONTIVEROS Rep #: [id number] : 1965 F 59 From: Art Moreno MD PCP: Olga Flores NP-C Status: REG C Study:SCRN MAMM (CAD)W/JACKIE BILAT Date of Exa m: 11/08/24 Exam# [id number] Ordering Dr: Denise Nelson MD EXAM: SCRN MAMM (CAD)W/JACKIE BILAT DATE: 11/08/2024 CLINICAL HISTORY: F, Age 59 y/o , SCREEN FOR BREAST CANCER Routine screening TECHNIQUE: Procedure Code: BISMWCADBTOM Modality: MG Procedure: SCRN MAMM (CAD)W/JACKIE BILAT COMPARISON: Prior exam(s) dated 11/07/2023. FINDINGS: TISSUE DENSITY: The breasts are almost entirely fatty. Bilateral Breast Mammographic Findings: No significant masses, calcifications or other abnormalities are identified. No interval change BI/SCRN MAMM (CAD)W/JACKIE BILAT IMPRESSION: Stable screening mammogram OVERALL FINAL ASSESSMENT BI-RADS 1: NEGATIVE. RECOMMENDATION: Routine annual follow-up in 1 Year Additional Recommendation none A letter with findings and recommendations will be mailed to the patient. Reading Location: [id number] CC: KG Flores; Dr. Denise Cat MD ~ Sales Agent Insurance: Signed [facility] Basket Maker Office Visit Reporton 11-08-2024 Basket Maker Office Visit Report [facility] [address], [address] [place] [address] OFFICE VISIT Date of Service: 11/08/24 MR#: [id number] Acct: [id number] Name: COBY ONTIVEROS Rep #: [id number] : 1965 Provider: Dr. 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) Lean Manufacturing Specialist Required: No Is patient in pain?: No Feel stressed/tense/nervous /anxious/difficulty sleeping: to some extent (car repair issues) Allergies No Known Allergies Allergy (Verified 11/08/24 09:23) Medications ???Medication ???Instructions ???Recorded ???Confirmed ???Type pen needle, diabetic 32 gauge x #360 ea 09/15/17 11/08/24 Rx /32 (BD Ultra-Fine Aubrie Pen Needle) multivitamin (Daily Multi-Vitamin 1 tab PO DAILY 12/23/20 11/08/24 History tablet) blood-glucose,rail track maintainer ,cont #1 ea 01/28/21 11/08/24 Rx (Dexcom G6 Paint Brush Maker) blood-glucose sensor (Dexcom G6 #3 ea 01/06/22 11/08/24 Rx Sensor device) cholecalciferol (vitamin D3) 50 50 mcg PO .QOD 08/02/23 11/08/24 H istory mcg (2,000 unit) capsule Novolog FlexPen U-100 Insulin 100 See Rx Instructions subcut 11/08/24 Rx unit/mL (3 mL) subcutaneous .COMPLEX #180.9 mL (insulin aspart U-100) amlodipine 10 mg tablet 10 mg PO QDAY #90 tabs 09/12/23 Rx fenofibrate nanocrystallized 145 145 mg PO QDAY #90 tabs 11/07/23 1 Rx mg tablet (Tricor) trazodone 50 mg tablet 50 mg PO QHS PRN insomnia #90 tabs 11/07/23 11/08/24 Rx losartan 100 mg tablet 100 mg PO QDAY #90 tabs 12/05/23 1 Rx buspirone 5 mg tablet 5 mg PO BID PRN 01/26/24 11/08/24 History desvenlafaxine succinate 100 mg 100 mg PO DAILY #90 tabs 03/16/24 11/08/24 Rx tablet,extended release 24 hr (Pristiq) blood-glucose transmitter (Dexcom #1 ea 05/25/24 11/08/24 Rx G6 Transmitter device) spironolactone 50 mg tablet 50 mg PO DAILY #90 tabs 06/08/24 1 Rx Dexcom G6 Sensor (blood-glucose #9 ea 06/27/24 11/08/24 Rx sensor) levothyroxine 125 mcg tablet 125 mcg PO DAILY #90 tabs 06/27/24 11/08/24 Rx icosapent ethyl 1 gram capsule 2 g (2 x 1 gram) PO BID #360 caps 07/05/24 11/08/24 Rx (Vascepa) metformin 1,000 mg tablet 1,000 mg PO BID #180 tabs 08/15/24 11/08/24 Rx insulin glargine 100 unit/mL (3 55 unit (0.55 mL) subcut BID #99 m L 08/20/24 11/08/24 Rx mL) subcutaneous pen (Lantus Solostar U-100 Insulin) atorvastatin 40 mg tablet (Lipitor) 40 mg PO QDAY #90 tabs 09/17/24 11/08/24 Rx tirzepatide 10 mg/0.5 mL 10 mg (0.5 mL) subcut QWEEK #6 mL 10/04/24 11/08/24 Rx subcutaneous pen injector (Mounjaro) Farxiga 10 mg tablet 10 mg PO DAILY #90 tabs 10/09/24 1 Rx (dapagliflozin propanediol) clobetasol 0.05 % topical ointment 1 applic topical QHS PRN itching 11/08/24 11/08/24 Rx #120 grams Is last menstrual period known: No Post menopausal: Yes Patient : No : No PFSH Medical History Mixed hyperlipidemia Benign essential hypertension History of concussion History of torn meniscus of left knee APRIL III (cervical intraepithelial neoplasia grade III) with severe dysplasia Lichen sclerosus PCOS (polycystic ovarian syndrome) Abnormal Pap smear of vagina Overweight Diabetes Hypertension Hyperlipemia hypothroidism Anxiety and depression Vitamin D deficiency Surgical History Hx LEEP (loop electrosurgical excision procedure), cervix, S/p bilateral carpal tunnel release Hx laparoscopic cholecystectomy Family History Mother Heart disease Social History number of children: 0 current occupational status: employed 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 Normal [facility] SCRN MAMM (CAD)W/JACKIE BILATo n 11-08-2024 SCRN MAMM (CAD)W/JACKIE BILAT [facility] Imaging Services [address] [place] [address] SCRN MAMM (CAD)W/JACKIE BILAT MR#: [id number] Acct: [id number] Name: COBY ONTIVEROS Rep #: [id number] : 1965 F 59 From: Prashant Moreno MD PCP: KG Acosta Status: REG CLI Study: SCRN MAMM (CAD)W/JACKIE BILAT Date of Exam: 04/03 Exam# [id number] Ordering Dr: Denise Cat EXAM: SCRN MAMM (CAD)W/JACKIE BILAT DATE: 11/08/2024 CLINICAL HISTORY: F, Age 59 y/o , SCREEN FOR BREAST CANCER Routine screening TECHNIQUE: Procedure Code: BISMWCADBTOM Modality: MG Procedure: SCRN MAMM (CAD)W/JACKIE BILAT COMPARISON: Prior exam(s) dated 11/07/2023. FINDINGS: TISSUE DENSITY: The breasts are almost entirely fatty. Bilateral Breast Mammographic Findings: No significant masses, calcifications or other abnormalities are identified. No interval change BI/SCRN MAMM (CAD)W/JACKIE BILAT IMPRESSION: Stable screening mammogram OVERALL FINAL ASSESSMENT BI-RADS 1: NEGATIVE. RECOMMENDATION: Routine annual follow-up in 1 Year Additional Recommendation none A letter with findings and recommendations will be mailed to the patient. Reading Location: [id number] CC: MEDICAL VIDEOGRAPHER-C Olga Flores; Dr. Denise Cat MD Sales Agent Insurance: Signed Normal [facility] Endocrinology Visit Reporton 10-04-[address] [facility] [place] [address] OFFICE VISIT Date of Service: 10/04/24 MR#: [id number] Acct: [id number] Name: COBY ONTIVEROS Rep #: [id number] : 1965 Provider: Leela Cochran Age/Sex: 59/F [place] [facility] [place]: Signed Intake Vital Signs 05/24/24 11:00 10/04/24 11:28 Height 5 ft 10.5 in 5 ft 10.5 in Weight: 229 lb 232 lb BMI 32.3 32.8 BP 114/65 128/77 H Blood Pressure Location Rt brachial Lt brachial Position Sitting Sitting Pulse 81 78 Pulse Source Monitor Monitor Pulse Oximetry (%) 97 96 Oxygen Delivery Method room air room air Intake Visit Reasons: 4 M FU Chief Complaint: Diabetes Lean Manufacturing Specialist Required: No Accompanied by: Self Is patient in pain?: No Allergies No Known Allergies Allergy (Verified 10/04/24 11:27) Medications ???Medication ???Instructions ???Recorded ???Confirmed ???Type pen needle, diabetic 32 gauge x #360 ea 09/15/17 10/04/24 Rx (BD Ultra-Fine Aubrie Pen Needle) multivitamin (Daily Multi-Vitamin 1 tab PO DAILY 12/23/20 10/04/24 History tablet) blood-glucose,rail track maintainer ,cont #1 ea 01/28/21 10/04/24 Rx (Dexcom G6 Paint Brush Maker) blood-glucose sensor (Dexcom G6 #3 ea 01/06/22 10/04/24 Rx Sensor device) cholecalciferol (vitamin D3) 50 50 mcg PO .QOD 08/02/23 10/04/24 H istory mcg (2,000 unit) capsule Novolog FlexPen U-100 Insulin 100 See Rx Instructions subcut 10/04/24 Rx unit/mL (3 mL) subcutaneous .COMPLEX #180.9 mL (insulin aspart U-100) amlodipine 10 mg tablet 10 mg PO QDAY #90 tabs 09/12/23 Rx fenofibrate nanocrystallized 145 145 mg PO QDAY #90 tabs 11/07/23 0 10/04/24 Rx mg tablet (Tricor) trazodone 50 mg tablet 50 mg PO QHS PRN insomnia #90 tabs 11/07/23 10/04/24 Rx losartan 100 mg tablet 100 mg PO QDAY #90 tabs 12/05/23 0 10/04/24 Rx buspirone 5 mg tablet 5 mg PO BID PRN 01/26/24 10/04/24 History clobetasol 0.05 % topical ointment 1 applic topical QHS PRN 4 10/04/24 History desvenlafaxine succinate 100 mg 100 mg PO DAILY #90 tabs 03/16/24 10/04/24 Rx tablet,extended release 24 hr (Pristiq) Farxiga 10 mg tablet 10 mg PO DAILY #90 tabs 05/14/24 0 10/04/24 Rx (dapagliflozin propanediol) blood-glucose transmitter (Dexcom #1 ea 05/25/24 10/04/24 Rx G6 Transmitter device) spironolactone 50 mg tablet 50 mg PO DAILY #90 tabs 06/08/24 0 10/04/24 Rx Dexcom G6 Sensor (blood-glucose #9 ea 06/27/24 10/04/24 Rx sensor) levothyroxine 125 mcg tablet 125 mcg PO DAILY #90 tabs 06/27/24 10/04/24 Rx icosapent ethyl 1 gram capsule 2 g (2 x 1 gram) PO BID #360 caps 07/05/24 10/04/24 Rx (Vascepa) metformin 1,000 mg tablet 1,000 mg PO BID #180 tabs 08/15/24 10/04/24 Rx insulin glargine 100 unit/mL (3 55 unit (0.55 mL) subcut BID #99 m L 08/20/24 10/04/24 Rx mL) subcutaneous pen (Lantus Solostar U-100 Insulin) atorvastatin 40 mg tablet (Lipitor) 40 mg PO QDAY #90 tabs 09/17/24 10/04/24 Rx tirzepatide 10 mg/0.5 mL 10 mg (0.5 mL) subcut QWEEK #6 mL 10/04/24 10/04/24 Rx subcutaneous pen injector (Mounjaro) [facility] Medical History Mixed hyperlipidemia Benign essential hypertension History of concussion History of torn meniscus of left knee APRIL III (cervical intraepithelial neoplasia grade III) with severe dysplasia Lichen sclerosus PCOS (polycystic ovarian syndrome) Abnormal Pap smear of vagina Overweight Diabetes Hypertension Hyperlipemia hypothroidism Anxiety and depression Vitamin D deficiency Surgical History Hx LEEP (loop electrosurgical excision procedure), cervix, S/p bilateral carpal tunnel release Hx laparoscopic cholecystectomy Family History Mother Heart disease Social History number of children: 0 current occupational status: employed 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 and [facility] HPI Chief Complaint: Diabetes Details: COBY ONTIVEROS, is a 59 F who presents to the office today for follow up. A1C is 6.3% She is taking basal bolus She is using Dexcom G7 . Upload reviewed. She is having highs post sup (more content not included)... Normal [facility] Laboratory - Hematology and Cell countsOrdered By: Dave Guerra on 10-04-2024 HbA1c (Bld) [Mass fraction] 6.3 % 4.2-6.3 [facility] Microalb:Creat Ratio,Random URon 07-26-2024 MALB:CREAT 16.8 mg/g CRE Normal [facility] Comment on above: Result Comment: AMENDED REPORT 07/26/24 1440 MALB:CREAT previously reported as: 168.3 mg/g CRE Performed By: #### L 502.0250 #### [facility] Laboratory [address] [place], [address] Comprehensive Metabolic Prof ilon 05-24-2024 Albumin [Mass/Vol] 4.5 g/dL Normal 3.5-5.0 [facility] Comment on above: Performed By: #### L 501.9520, L500.4100, L506.0400, L506.1001, L500.4050 #### [facility] [address] [place], [place], [id number] Albumin/Globulin [Mass ratio] 1.5 {ratio} Normal 0.9-2.4 [facility] Comment on above: Performed By: #### L 501.9520, L500.4100, L506.0400, L506.1001, L500.4050 #### [facility] [address] [place], [address] ALK PHOS 39 U/L Normal 35-104 [facility] Comment on above: Performed By: #### L 501.9520, L500.4100, L506.0400, L506.1001, L500.4050 #### [facility] [address] [place], [address] ALT [Catalytic activity/Vol] 34 U/L Normal <=34 [facility] Comment on above: Performed By: #### L 501.9520, L500.4100, L506.0400, L506.1001, L500.4050 #### [facility] [address] [place], [address] AST [Catalytic activity/Vol] 37 U/L High <=31 [facility] Comment on above: Performed By: #### L 501.9520, L500.4100, L506.0400, L506.1001, L500.4050 #### [facility] [address] [place], [address] Bilirubin [Mass/Vol] 0.34 mg/dL Normal 0.00-1.30 [facility] Comment on above: Performed By: #### L 501.9520, L500.4100, L506.0400, L506.1001, L500.4050 #### [facility] [address] [place], [address] BUN/CRE 21.2 RATIO High 10-20 [facility] Comment on above: Performed By: #### L 501.9520, L500.4100, L506.0400, L506.1001, L500.4050 #### [facility] [address] [place], [address] Calcium [Mass/Vol] 10.6 mg/dL Normal 7.6-11.0 [facility] Comment on above: Performed By: #### L 501.9520, L500.4100, L506.0400, L506.1001, L500.4050 #### [facility] [address] [place], [address] Chloride [Moles/Vol] 104 mmol/L Normal 98-108 [facility] Comment on above: Performed By: #### L 501.9520, L500.4100, L506.0400, L506.1001, L500.4050 #### [facility] [address] [place], [address] CO2 [Moles/Vol] 22.9 mmol/L Normal 21.0-32.0 [facility] Comment on above: Performed By: #### L 501.9520, L500.4100, L506.0400, L506.1001, L500.4050 #### [facility] [address] [place], [address] Creatinine [Mass/Vol] 1.26 mg/dL High 0.70-1.20 [facility] Comment on above: Performed By: #### L 501.9520, L500.4100, L506.0400, L506.1001, L500.4050 #### [facility] [address] [place], [address] GAP 13 Normal 5-15 [facility] Comment on above: Performed By: #### L 501.9520, L500.4100, L506.0400, L506.1001, L500.4050 #### [facility] [address] [place], [address] GFR/1.73 sq M.predicted among non-blacks MDRD (S/P/Bld) [Vol rate/Area] 49 mL/min/{1.73_m2} Low >60 [facility] Comment on above: Result Comment: mL/m in/1.73m2 CKD-EPI Creatinine Equation (2020) Performed By: #### L 501.9520, L500.4100, L506.0400, L506.1001, L500.4050 #### [facility] [address] [place], [address] Globulin (S) [Mass/Vol] 3.0 g/dL Normal 2.2-4.2 [facility] Comment on above: Performed By: #### L 501.9520, L500.4100, L506.0400, L506.1001, L500.4050 #### [facility] [address] [place], [address] Glucose [Mass/Vol] 88 mg/dL Normal 70-99 [facility] Comment on above: Performed By: #### L 501.9520, L500.4100, L506.0400, L506.1001, L500.4050 #### [facility] [address] [place], [address] Potassium [Moles/Vol] 4.6 mmol/L Normal 3.3-5.1 [facility] Comment on above: Performed By: #### L 501.9520, L500.4100, L506.0400, L506.1001, L500.4050 #### [facility] [address] [place], [address] Sodium [Moles/Vol] 140 mmol/L Normal 133-145 [facility] Comment on above: Performed By: #### L 501.9520, L500.4100, L506.0400, L506.1001, L500.4050 #### [facility] [address] [place], [address] T PROT 7.5 g/dL Normal 5.9-8.4 [facility] Comment on above: Performed By: #### L 501.9520, L500.4100, L506.0400, L506.1001, L500.4050 #### [facility] [address] [place], [address] Urea nitrogen [Mass/Vol] 27 mg/dL High 05-26 [facility] Comment on above: Performed By: #### L 501.9520, L500.4100, L506.0400, L506.1001, L500.4050 #### [facility] [address] [place], [address] Endocrinology Visit Reporton 05-24-[address] [facility] [address] [place], [place] [address] OFFICE VISIT Date of Service: 05/24/24 MR#: [id number] Acct: [id number] Name: COBY ONTIVEROS Rep #: [id number] : 1965 Provider: Leela Cochran Age/Sex: 59/F [place] [facility] [place]: Signed Intake Vital Signs 01/26/24 11:10 05/24/24 11:00 Height 5 ft 10.5 in 5 ft 10.5 in Weight: 233 lb 6 oz 229 lb BMI 33.0 32.3 BP 134/75 H 114/65 Blood Pressure Location Rt brachial Rt brachial Position Sitting Sitting Pulse 81 81 Pulse Source Monitor Monitor Pulse Oximetry (%) 97 97 Oxygen Delivery Method room air room air Intake Visit Reasons: 4 M FU Chief Complaint: Diabetes Is patient in pain?: No Allergies No Known Allergies Allergy (Verified 05/24/24 11:05) Medications ???Medication ???Instructions ???Recorded ???Confirmed ???Type pen needle, diabetic 32 gauge x #360 ea 09/15/17 05/24/24 Rx / (BD Ultra-Fine Aubrie Pen Needle) omeprazole 20 mg capsule,delayed 20 mg PO DAILY PRN GERD #90 caps 0 8/17/21 04/17/25 Rx release multivitamin (Daily Multi-Vitamin 1 tab PO DAILY 12/23/20 05/24/24 History tablet) blood-glucose meter,continuous #1 ea 01/28/21 05/24/24 Rx (Dexcom G6 Paint Brush Maker) blood-glucose sensor (Dexcom G6 #3 ea 01/06/22 05/24/24 Rx Sensor device) icosapent ethyl 1 gram capsule 2 g (2 x 1 gram) PO BID #360 caps 05/02/23 05/24/24 Rx (Vascepa) atorvastatin 40 mg tablet (Lipitor) 40 mg PO QDAY #90 tabs 07/11/23 05/24/24 Rx Dexcom G6 Sensor (blood-glucose #9 ea 08/02/23 08/02/23 Rx sensor) Ozempic 1 mg/dose (4 mg/3 mL) 1 mg (0.75 mL) subcut QWEEK #9 mL 08/02/23 05/24/24 Rx subcutaneous pen injector (semaglutide) cholecalciferol (vitamin D3) 50 50 mcg PO .QOD 08/02/23 05/24/24 H istory mcg (2,000 unit) capsule spironolactone 50 mg tablet 50 mg PO DAILY #90 tabs 08/02/23 0 05/24/24 Rx Novolog FlexPen U-100 Insulin 100 See Rx Instructions subcut 05/24/24 Rx unit/mL (3 mL) subcutaneous .COMPLEX #180.9 mL (insulin aspart U-100) amlodipine 10 mg tablet 10 mg PO QDAY #90 tabs 09/12/23 Rx blood-glucose transmitter (Dexcom #1 ea 09/21/23 05/24/24 Rx G6 Transmitter device) metformin 1,000 mg tablet 1,000 mg PO BID #180 tabs 10/31/23 05/24/24 Rx fenofibrate nanocrystallized 145 145 mg PO QDAY #90 tabs 11/07/23 0 05/24/24 Rx mg tablet (Tricor) trazodone 50 mg tablet 50 mg PO QHS PRN insomnia #90 tabs 11/07/23 05/24/24 Rx losartan 100 mg tablet 100 mg PO QDAY #90 tabs 12/05/23 0 05/24/24 Rx levothyroxine 125 mcg tablet 125 mcg PO DAILY #90 tabs 01/16/24 05/24/24 Rx buspirone 5 mg tablet 5 mg PO BID PRN 01/26/24 05/24/24 History clobetasol 0.05 % topical ointment 1 applic topical QHS PRN 4 05/24/24 History desvenlafaxine succinate 100 mg 100 mg PO DAILY #90 tabs 03/16/24 05/24/24 Rx tablet,extended release 24 hr (Pristiq) insulin glargine 100 unit/mL (3 55 unit (0.55 mL) subcut BID #99 m L 03/28/24 05/24/24 Rx mL) subcutaneous pen (Lantus Solostar U-100 Insulin) Farxiga 10 mg tablet 10 mg PO DAILY #90 tabs 05/14/24 0 05/24/24 Rx (dapagliflozin propanediol) PFSH Medical History Mixed hyperlipidemia Benign essential hypertension History of concussion History of torn meniscus of left knee APRIL III (cervical intraepithelial neoplasia grade III) with severe dysplasia Lichen sclerosus PCOS (polycystic ovarian syndrome) Abnormal Pap smear of vagina Overweight Diabetes Hypertension Hyperlipemia hypothroidism Anxiety and depression Vitamin D deficiency Surgical History Hx LEEP (loop electrosurgical excision procedure), cervix, S/p bilateral carpal tunnel release Hx laparoscopic cholecystectomy Family History Mother Heart disease Social History number of children: 0 current occupational status: employed 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 A1C is 6.6% She is taking basal bolus (more content not included)... Normal [facility] Lipid Profileon 05-24-2024 CHOL:HDL 3.43 Normal [facility] Comment on above: Performed By: #### L 501.9520, L500.4100, L506.0400, L506.1001, L500.4050 #### [facility] [address] [place], [address] Cholesterol [Mass/Vol] 138 mg/dL Normal <=200 [facility] Comment on above: Result Comment: Chol esterol level, Desirable <200 mg/dL Borderline high cholesterol 200-239 mg/dL High cholesterol >=240 mg/dL Recommendations of the NCEP Adult Treatment Panel for the following risk-cutoff thresholds for the [place] population. Performed By: #### L 501.9520, L500.4100, L506.0400, L506.1001, L500.4050 #### [facility] [address] [place], [address] Cholesterol in HDL [Mass/Vol] 40 mg/dL Normal [facility] Comment on above: Result Comment: [place]rystal onal Cholesterol Education Program (NCEP) guidelines: <40 mg/dL: Low HDL-cholesterol (major risk factor for CHD) >= 60 mg/dL: High HDL-cholesterol (negative risk factor for CHD) HDL-cholesterol is affected by a number of factors, e.g. smoking, exercise, hormones, sex and age. Performed By: #### L 501.9520, L500.4100, L506.0400, L506.1001, L500.4050 #### [facility] [address] [place], [address] Cholesterol in LDL [Mass/Vol] 50 mg/dL Normal [facility] Comment on above: Result Comment: Bord hefbbr=920-405 mg/dL Higher Rkwz=750 mg/dL or greater Performed By: #### L 501.9520, L500.4100, L506.0400, L506.1001, L500.4050 #### [facility] [address] [place], [address] Cholesterol in VLDL [Mass/Vol] 48 mg/dL High 5-40 [facility] Comment on above: Performed By: #### L 501.9520, L500.4100, L506.0400, L506.1001, L500.4050 #### [facility] [address] [place], [address] Triglyceride [Mass/Vol] 240 mg/dL High [facility] Comment on above: Result Comment: The drugs N-Acetylcysteine and Metamizole may falsely depress this assay. Normal range: <150 mg/dL Borderline High: 150-199 mg/dL High: 200-499 mg/dL Very High: >500 mg/dL Performed By: #### L 501.9520, L500.4100, L506.0400, L506.1001, L500.4050 #### [facility] [address] [place], [address] T4 Free Directon 05-24-2024 T4 FREE DIRECT 1.30 ng/dL Normal 0.76-1.46 [facility] Comment on above: Performed By: #### L 501.9520, L500.4100, L506.0400, L506.1001, L500.4050 #### [facility] [address] [place], [address] Thyroid Stim Hormone (TSH)on 05-24-2024 TSH 0.778 uIU/mL Normal 0.300-4.200 [facility] Comment on above: Performed By: #### L 501.9520, L500.4100, L506.0400, L506.1001, L500.4050 #### [facility] [address] [place], [address] Vitamin D,25 Hydroxyon 05-24 Vitamin D 25-OH 48.0 ng/mL Normal 30-100 [facility] Comment on above: Result Comment: Irene min D Status Deficiency: <20 ng/mL (50nmol/L) Insufficiency: 20-30 ng/mL (50-75 nmol/L) Sufficiency: 30-100 ng/mL (75-250 nmol/L) Toxicity: >100 ng/mL (>250 nmol/L) Performed By: #### L 501.9520, L500.4100, L506.0400, L506.1001, L500.4050 #### [facility] [address] [place], [place], [address] Endocrinology Visit Reporton 01-26-[address] [facility] [address] [place] [address] OFFICE VISIT Date of Service: 01/26/24 MR#: [id number] Acct: [id number] Name: COBY ONTIVEROS Rep #: [id number] : 1965 Provider: Leela Cochran Age/Sex: 58/F Location[place] [facility] [place] Status: Signed Intake Vital Signs 08/02/23 10:54 11/07/23 09:27 01/26/24 11:10 Height 5 ft 10.5 in 5 ft 10.5 in 5 ft 10.5 in Weight: 233 lb 6 oz BMI 33.0 BP 134/75 H Blood Pressure Location Rt brachial Position Sitting Pulse 81 Pulse Source Monitor Pulse Oximetry (%) 97 Oxygen Delivery Method room air Intake Visit Reasons: 6 M FU Chief Complaint: Diabetes Is patient in pain?: No Allergies No Known Allergies Allergy (Verified 01/26/24 11:14) Medications ???Medication ???Instructions ???Recorded ???Confirmed ???Type pen needle, diabetic 32 gauge x #360 ea 09/15/17 08/02/23 Rx 5/32 (BD Ultra-Fine Aubrie Pen Needle) omeprazole 20 mg capsule,delayed 20 mg PO DAILY PRN GERD #90 caps 09/23/20 01/26/24 Rx release multivitamin (Daily Multi-Vitamin 1 tab PO DAILY 12/23/20 01/26/24 History tablet) blood-glucose meter,continuous #1 ea 01/28/21 01/26/24 Rx (Dexcom G6 Paint Brush Maker) blood sugar diagnostic (Accu-Chek #450 ea 03/09/21 08/02/23 Rx Tracie Plus test strips) blood-glucose sensor (Dexcom G6 #3 ea 01/06/22 01/26/24 Rx Sensor device) icosapent ethyl 1 gram capsule 2 g (2 x 1 gram) PO BID #360 caps 05/02/23 01/26/24 Rx (Vascepa) atorvastatin 40 mg tablet (Lipitor) 40 mg PO QDAY #90 tabs 07/11/23 01/26/24 Rx Dexcom G6 Sensor (blood-glucose #9 ea 08/02/23 08/02/23 Rx sensor) Ozempic 1 mg/dose (4 mg/3 mL) 1 mg (0.75 mL) subcut QWEEK #9 mL 08/02/23 01/26/24 Rx subcutaneous pen injector (semaglutide) cholecalciferol (vitamin D3) 50 50 mcg PO .QOD 08/02/23 01/26/24 History mcg (2,000 unit) capsule spironolactone 50 mg tablet 50 mg PO DAILY #90 tabs 08/02/23 01/26/24 Rx Novolog FlexPen U-100 Insulin 100 See Rx Instructions subcut 08/18/23 01/26/24 Rx unit/mL (3 mL) subcutaneous .COMPLEX #180.9 mL (insulin aspart U-100) amlodipine 10 mg tablet 10 mg PO QDAY #90 tabs 09/12/23 01/26/24 Rx blood-glucose transmitter (Dexcom #1 ea 09/21/23 01/26/24 Rx G6 Transmitter device) insulin glargine 100 unit/mL (3 55 unit (0.55 mL) subcut BID #99 mL 10/28/23 01/26/24 Rx mL) subcutaneous pen (Lantus Solostar U-100 Insulin) metformin 1,000 mg tablet 1,000 mg PO BID #180 tabs 10/31/23 01/26/24 Rx desvenlafaxine succinate 100 mg 100 mg PO DAILY #90 tabs 11/07/23 01/26/24 Rx tablet,extended release 24 hr (Pristiq) fenofibrate nanocrystallized 145 145 mg PO QDAY #90 tabs 11/07/23 01/26/24 Rx mg tablet (Tricor) trazodone 50 mg tablet 50 mg PO QHS PRN insomnia #90 tabs 11/07/23 01/26/24 Rx losartan 100 mg tablet 100 mg PO QDAY #90 tabs 12/05/23 01/26/24 Rx Farxiga 10 mg tablet 10 mg PO DAILY #90 tabs 12/20/23 01/26/24 Rx (dapagliflozin propanediol) levothyroxine 125 mcg tablet 125 mcg PO DAILY #90 tabs 01/16/24 01/26/24 Rx buspirone 5 mg tablet 5 mg PO BID PRN 01/26/24 History clobetasol 0.05 % topical ointment 1 applic topical QHS PRN 01/26/24 History PFSH Medical History Mixed hyperlipidemia Benign essential hypertension History of concussion History of torn meniscus of left knee APRIL III (cervical intraepithelial neoplasia grade III) with severe dysplasia Lichen sclerosus PCOS (polycystic ovarian syndrome) Abnormal Pap smear of vagina Overweight Diabetes Hypertension Hyperlipemia hypothroidism Anxiety and depression Vitamin D deficiency Surgical History Hx LEEP (loop electrosurgical excision procedure), cervix, S/p bilateral carpal tunnel release Hx laparoscopic cholecystectomy Family History Mother Heart disease Social History number of children: 0 current occupational status: employed 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 A1C is 6.6% She is taking basal bolus Abdelrahman (more content not included)... Normal [facility] Whole blood hemoglobin A1c/t otal hemoglobin ratio (mass fraction)Ordered By: Dr. Guerra on 07-19-2022 HbA1c (Bld) [Mass fraction] 6.0 % 3.8-5.6 [facility] Comment on above: Normal < 5.7 % Predi abetic 5.7 - 6.4 % Diabetic >or= 6.5 % Please note range changes. Basophil percentageon 2021 Cholesterol [Mass/Vol] 149 mg/dL <200 [facility] Work Phone: Comment on above: <200 mg/dL Desirable 200-240 mg/dL Borderline >240 mg/dL High Risk Triglyceride [Mass/Vol] 370 mg/dL [facility] Work Phone: Comment on above: The drugs N-Acetylcy steine and Metamizole may falsely depress this assay.Serum Triglycerides Reference Interval Normal <150 mg/dL Borderline high 150 - 199 mg/dL High 200 - 499 mg/dL Very High > or = 500 mg/dL Laboratory - Chemistry and C hemistry - challengeon 06-26-2021 Free T4 [Mass/Vol] 1.16 ng/dL 0.76-1.46 [facility] Work Phone: No Panel Informationon 06-26 Thyroid Stimulating Hormone (TSH) 0.17 uIU/mL 0.358-3.74 [facility] Work Phone: Urine Microalbumin/Creati nine Ratio 371.7 mg/g CRE <30 [facility] Work Phone: Serum or plasma cholesterol in HDL measurement (mass/volume)on 06-26-2021 Cholesterol in HDL [Mass/Vol] 40 mg/dL [facility] Work Phone: Comment on above: The drugs N-Acetylcy steine and Metamizole may falsely depress this assay. Reference Range HDL <40 mg/dL Low HDL Cholesterol HDL >or= 60 mg/dL High HDL Cholesterol Serum or plasma cholesterol in VLDL measurement (mass/volume)on 06-26-2021 Cholesterol in VLDL [Mass/Vol] 74 mg/dL 5-40 [facility] Work Phone: Serum or plasma low density lipoprotein (LDL) cholesterol measurement (mass/volume)on 06-26-2021 Cholesterol in LDL [Mass/Vol] 35 mg/dL 0-130 [facility] Work Phone: Thin prep Papanicolaou smear with manual screeningon 06-26-2021 Thin prep Papanicolaou smear with manual screening 472.0 mg/L NO RANGE EST. [facility] Work Phone: Urine creatinine measurement (mass/volume)on 06-26-2021 Creatinine (U) [Mass/Vol] 127.00 mg/dL NO RANGE EST. [facility] Work Phone: Laboratory - Hematology and Cell countson 06-17-2021 HbA1c (Bld) [Mass fraction] 6.9 % [facility] Work Phone: Basophil percentageon 2021 Chloride [Moles/Vol] 105 mmol/L 98-107 [facility] Work Phone: Glucose [Mass/Vol] 139 mg/dL 74-106 [facility] Work Phone: Comment on above: Fasting Glucose resu lt greater than or equal to 126 mg/dL suggests DIABETES MELLITUS per A.D.A. criteria. Potassium [Moles/Vol] 4.4 mmol/L 3.5-5.1 [facility] Work Phone: Sodium [Moles/Vol] 139 mmol/L 136-145 [facility] Work Phone: WBC (Bld) [#/Vol] 9.1 10*3/uL 4.4-11.0 [facility] Work Phone: Blood erythrocytes count (nu mber/volume)on 05-29-2021 RBC (Bld) [#/Vol] 4.43 10*6/uL 4.2-5.4 [facility] Work Phone: Blood hemoglobin measurement (mass/volume)on 05-29-2021 Hemoglobin (Bld) [Mass/Vol] 12.7 g/dL 12.0-15.0 [facility] Work Phone: Blood platelet mean volumeon 05-29-2021 Platelet mean volume (Bld) [Entitic vol] 10.2 fL 6.2-12.0 [facility] Work Phone: Determination of erythrocyte mean corpuscular volume (MCV)on 05-29-2021 MCV (RBC) [Entitic vol] 88.5 fL 81-99 [facility] Work Phone: Hematocrit Auto (Bld) [Volum e fraction]on 05-29-2021 Hematocrit (Bld) [Volume fraction] 39.2 % 37-47 [facility] Work Phone: Laboratory - Chemistry and C hemistry - challengeon 05-29-2021 CO2 [Moles/Vol] 27.0 mmol/L 21.0-32.0 [facility] Work Phone: Urea nitrogen/Creatinine [Mass ratio] 21.8 mg/mg 10-20 [facility] Work Phone: Laboratory - Hematology and Cell countson 05-29-2021 Erythrocyte distribution width (RBC) [Entitic vol] 43.4 fL 35.1-43.9 [facility] Work Phone: Erythrocyte distribution width (RBC) [Ratio] 13.3 % 11.6-14.6 [facility] Work Phone: MCH (RBC) [Entitic mass] 28.7 pg 27.0-32.0 [facility] Work Phone: MCHC Auto (RBC) [Mass/Vol]on 05-29-2021 MCHC (RBC) [Mass/Vol] 32.4 g/dL 32-36 [facility] Work Phone: No Panel Informationon 05-29 Estimated GFR (MDRD) Amer 66 mL/min >60 [facility] Work Phone: Comment on above: GFR Calc Estimated GFR (MDRD) Non-Af Amer 55 mL/min >60 [facility] Work Phone: Comment on above: Non- GFR Calc Parathyroid Hormone (Intact) 6.8 pg/mL 18.4-80.1 [facility] Work Phone: Vitamin D 25-Hydroxy 64.0 ng/mL [facility] Work Phone: Comment on above: Vitamin D 25(OH) Sta tus Range Deficiency <20 ng/mL (50nmol/L) Insufficiency 20 - 30 ng/mL (50 - 75 nmol/L) Sufficiency 30 - 100 ng/mL (75 - 250 nmol/L) Toxicity >100 ng/mL (>250 nmol/L) Platelets bldon 05-29-2021 Platelets (Bld) [#/Vol] 254 10*3/uL 150-450 [facility] Work Phone: Serum or plasma calcium marcus urement (mass/volume)on 05-29-2021 Calcium [Mass/Vol] 9.9 mg/dL 8.5-10.1 [facility] Work Phone: Serum or plasma creatinine m easurement (mass/volume)on 05-29-2021 Creatinine [Mass/Vol] 1.10 mg/dL 0.55-1.02 [facility] Work Phone: Comment on above: The validity of the calculated GFR & GFRAA in patients over 70 years has not been determined. Clinical correlation is essential. Serum or plasma urea nitroge n measurement (mass/volume)on 05-29-2021 Urea nitrogen [Mass/Vol] 24 mg/dL 7-18 [facility] Work Phone: Thin prep Papanicolaou smear with manual screeningon 05-29-2021 Thin prep Papanicolaou smear with manual screening 7 5-15 [facility] Work Phone: Urine creatinine measurement (mass/volume)on 05-29-2021 Creatinine (U) [Mass/Vol] 120.00 mg/dL NO RANGE EST. [facility] Work Phone: Urine protein measurement (m ass/volume)on 05-29-2021 Protein (U) [Mass/Vol] 73.1 mg/dL 0.0-11.8 [facility] Work Phone: Urine protein/creatinine mas s ratioon 05-29-2021 Protein/Creatinine (U) [Mass ratio] 609 mg/g CRE 0-200 [facility] Work Phone: OBSOLETEon 02-14-2020 OBSOLETE Refill ([facility]) COBY ONTIVEROS ([id number]) 1965 F Date Time Provider Department 02/14/20 HERMILO PEREZ ([facility]) [facility] During your visit today, we recorded the following information about you: Nicole Gonzales Pss 02/14/2020 8:33 AM Signed Patient has been identified by name and date of : Yes Pending Prescriptions Disp Refills SPIRONOLACTONE 50 MG TABLET 90 tablet 0 Sig: Take 1 tablet by mouth once daily. GRIS: No RX INSTRUCTIONS: Pharmacy initiated this request. No need to notify patient. Nicole Gonzales Pss Alivia Galan MA 02/18/2020 8:47 AM Signed Last OV 03/13/18 No Future- attempted to reach patient to schedule appointment. Left message to call back and schedule Alivia Galan MA 02/18/2020 9:57 AM Signed Left detail message for patient to establish care with provider. Allergies As of Date: 02/14/2020 (No Known Allergies) Date Reviewed: 03/13/2018 Reviewed by: Olga Elizondo Ma - Fully Assessed Reason for Visit: Refill Request [94] Visit Diagnosis:Essential hypertension, benign [I10] Prescriptions as of 02/14/2020 Sig: FENOFIBRATE MICRONIZED 200 MG* TAKE 1 CAPSULE ONCE DAILY ATORVASTATIN 40 MG TABLET TAKE 1 TABLET ONCE DAILY METFORMIN ER 500 MG TABLET,EX* TAKE 2 TABLETS TWICE A DAY LOSARTAN 100 MG TABLET TAKE 1 TABLET ONCE DAILY SPIRONOLACTONE 50 MG TABLET TAKE 1 TABLET ONCE DAILY ESCITALOPRAM 20 MG TABLET Take 1 tablet by mouth once d* AMLODIPINE 10 MG TABLET Take 1 tablet by mouth once d* HYDROCHLOROTHIAZIDE 50 MG TAB* Take 1 tablet by mouth once d* OMEPRAZOLE 20 MG CAPSULE,MEGHAN* TAKE 1 CAPSULE BY MOUTH DAILY* INSULIN GLARGINE (U-100) 100 * Inject 55 Units subcutaneousl* NOVOLOG FLEXPEN U-100 INSULIN* Take subcutaneously before me* DULAGLUTIDE 0.75 MG/0.5 ML ESCAMILLA* Inject 0.75 mg subcutaneously* LEVOTHYROXINE 200 MCG TABLET TAKE 1 TABLET DAILY FOUR DAYS* BIOTIN 5,000 MCG DISINTEGRATI* Take by mouth. GABAPENTIN 600 MG TABLET 1/2 tablet at bedtime, taper * PEN NEEDLE, DIABETIC 32 GAUGE* Use with insulin injections 5* COENZYME Q10 100 MG CAPSULE Take 1 capsule by mouth once * CHOLECALCIFEROL (VITAMIN D3) * 1 capsule twice per day OMEGA-3 FATTY ACIDS 1,000 MG * Take 1 capsule by mouth twice* ASPIRIN 81 MG TABLET Take 81 mg by mouth. MULTIVITAMIN TABLET Take one(1) tablet daily. 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 This test has been authorized by FDA under an Emergency Use Authorization (EUA). This test has been validated in accordance with the FDA's Guidance Document Policy for Diagnostics Testing in Laboratories Certified to Perform High Complexity Testing under CLIA prior to Emergency use Authorization for Coronavirus Disease 2019 during the Public Health Emergency issued on April 07, [place] [address] Jairo Barriga III, M.D. [id number] Performed By: #### [id number] #### [place] [id number] COVID 19 Source MEDICAL VIDEOGRAPHER Nasopharyngeal Swab Normal [facility] Comment on above: Result Comment: Matty ected on 12/25 AT 1210: Previously reported as NASOPHARYNGEAL Performed By: #### [id number] #### [place] [id number] Coronavirus 2019on 0 COVID 19 Result MEDICAL VIDEOGRAPHER Abnormal Negative for COVID19 (SARS CoV2) by PCR. [facility] Comment on above: Result Comment: Posi tive for This test was developed and its performance characteristics determined by [facility] [place]. This test has been authorized by FDA under an Emergency Use Authorization (EUA). This test has been validated in accordance with the FDA's Guidance Document Policy for Diagnostics Testing in Laboratories Certified to Perform High Complexity Testing under CLIA prior to Emergency use Authorization for Coronavirus Disease 2019 during the Public Health Emergency issued on April 07, 2019. COVID19 (SARS This test was developed and its performance characteristics determined by [facility] [place]. This test has been authorized by FDA under an Emergency Use Authorization (EUA). This test has been validated in accordance with the FDA's Guidance Document Policy for Diagnostics Testing in Laboratories Certified to Perform High Complexity Testing under CLIA prior to Emergency use Authorization for Coronavirus Disease 2019 during the Public Health Emergency issued on April 07, 2019. CoV2) by This test was developed and its performance characteristics determined by [facility] [place]. This test has been authorized by FDA under an Emergency Use Authorization (EUA). This test has been validated in accordance with the FDA's Guidance Document Policy for Diagnostics Testing in Laboratories Certified to Perform High Complexity Testing under CLIA prior to Emergency use Authorization for Coronavirus Disease 2019 during the Public Health Emergency issued on April 07, 2019. PCR.(*) This test was developed and its performance characteristics determined by [facility] [place]. This test has been authorized by FDA under an Emergency Use Authorization (EUA). This test has been validated in accordance with the FDA's Guidance Document Policy for Diagnostics Testing in Laboratories Certified to Perform High Complexity Testing under CLIA prior to Emergency use Authorization for Coronavirus Disease 2019 during the Public Health Emergency issued on April 07, 2019. Coronavirus 2019on 0 COVID 19 Source MEDICAL VIDEOGRAPHER Normal [facility] Comment on above: Result Comment: Naso pharyngeal Corrected on 12/25 AT 1210: Previously reported as NASOPHARYNGEAL Swab Corrected on 12/25 AT 1210: Previously reported as NASOPHARYNGEAL CNCOon 08-31-2019 [facility]CO Letter Text Normal [facility] OBSOLETEon 08-27-2019 OBSOLETE Refill ([facility]) COBY ONTIVEROS ([id number]) 1965 F Date Time Provider Department 08/27/19 DAYNA LEI) AUDREY During your visit today, we recorded the following information about you: Olga Elizondo Ma 08/27/2019 9:27 AM Signed Pharmacy verified in [facility] Patient has been identified by name and date of : Yes Patient aware RX will be sent to pharmacy. No need to notify patient. Patient phones for refill(s): Pending Prescriptions Disp Refills AMLODIPINE 10 MG TABLET 90 tablet 0 Sig: TAKE 1 TABLET ONCE DAILY GRIS: Yes HYDROCHLOROTHIAZIDE 50 MG TABLET 90 tablet 0 Sig: Take 1 tablet by mouth once daily. GRIS: No OMEPRAZOLE 20 MG CAPSULE,DELAYED RELEASE 90 capsule 0 Sig: TAKE 1 CAPSULE BY MOUTH DAILY BEFORE BREAKFAST. 1/2 HR BEFORE MEAL. GRIS: No Date of last office visit : 03/13/2018 Date of next office visit : Visit date not found Last 2 Encounter Wt Readings: Date: Wt: 03/13/2018 123.6 kg (272 lb 8 oz) 08/09/2017 122.4 kg (269 lb 12.8 oz) Blood Pressure: BUN (mg/dL) Date Value 06/01/2016 15 Creatinine (mg/dL) Date Value 02/25/2018 1.19 06/01/2016 0.83 Sodium (mmol/L) Date Value 06/01/2016 138 Potassium (mmol/L) Date Value 06/01/2016 4.6 Last 1 Encounter BP Readings: Date: BP: 03/13/2018 128/70 Please advise. Olga Briscoe MD 08/27/2019 4:40 PM Signed Patient's request for medication has been refused. See reason and notify patient. Pt has not been seen for 1 1/2 years. Appt. Flex slot OK Refused Prescriptions Disp Refills amLODIPine (NORVASC) 10 mg tablet [Pharmacy Med Name: AMLODIPINE TAB 10MG] 90 tablet 0 Sig: TAKE 1 TABLET ONCE DAILY GRIS: No Refused By: PAVEL BRISCOE MD Reason for Refusal: Patient needs appointment hydroCHLOROthiazide (HYDRODIURIL, ESIDRIX) 50 mg tablet 90 tablet 0 Sig: Take 1 tablet by mouth once daily. GRIS: No Refused By: PAVEL BRISCOE MD Reason for Refusal: Patient needs appointment omeprazole (PRILOSEC) 20 mg capsule 90 capsule 0 Sig: TAKE 1 CAPSULE BY MOUTH DAILY BEFORE BREAKFAST. 1/2 HR BEFORE MEAL. GRIS: No Refused By: PAVEL BRISCOE MD Reason for Refusal: Patient needs appointment Aliya Medeiros Pss 08/28/2019 8:38 AM Signed 1st attempt to reach patient. Left message to call ofice to schedule appointment. Ifeoma Orozco Mariia 08/30/2019 5:40 PM Signed 2nd attempt: LM to call office for appt. Ifeoma Orozco Mariia 08/31/2019 4:44 PM Signed 3rd attempt: lvm to call office. Allergies As of Date: 08/27/2019 (No Known Allergies) Date Reviewed: 03/13/2018 Reviewed by: Olga Elizondo Ma - Fully Assessed Reason for Visit: Refill Request [94] Visit Diagnosis:Essential hypertension, benign [I10] Prescriptions as of 08/27/2019 Sig: FENOFIBRATE MICRONIZED 200 MG* TAKE 1 CAPSULE ONCE DAILY ATORVASTATIN 40 MG TABLET TAKE 1 TABLET ONCE DAILY METFORMIN ER 500 MG TABLET,EX* TAKE 2 TABLETS TWICE A DAY LOSARTAN 100 MG TABLET TAKE 1 TABLET ONCE DAILY SPIRONOLACTONE 50 MG TABLET TAKE 1 TABLET ONCE DAILY ESCITALOPRAM 20 MG TABLET Take 1 tablet by mouth once d* AMLODIPINE 10 MG TABLET Take 1 tablet by mouth once d* HYDROCHLOROTHIAZIDE 50 MG TAB* Take 1 tablet by mouth once d* OMEPRAZOLE 20 MG CAPSULE,MEGHAN* TAKE 1 CAPSULE BY MOUTH DAILY* INSULIN GLARGINE (U-100) 100 * Inject 55 Units subcutaneousl* NOVOLOG FLEXPEN U-100 INSULIN* Take subcutaneously before me* DULAGLUTIDE 0.75 MG/0.5 ML ESCAMILLA* Inject 0.75 mg subcutaneously* LEVOTHYROXINE 200 MCG TABLET TAKE 1 TABLET DAILY FOUR DAYS* BIOTIN 5,000 MCG DISINTEGRATI* Take by mouth. GABAPENTIN 600 MG TABLET 1/2 tablet at bedtime, taper * PEN NEEDLE, DIABETIC 32 GAUGE* Use with insulin injections 5* COENZYME Q10 100 MG CAPSULE Take 1 capsule by mouth once * CHOLECALCIFEROL (VITAMIN D3) * 1 capsule twice per day OMEGA-3 FATTY ACIDS 1,000 MG * Take 1 capsule by mouth twice* ASPIRIN 81 MG TABLET Take 81 mg by mouth. MULTIVITAMIN TABLET Take one(1) tablet daily. 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 (more content not included)... Normal [facility] OBSOLETEon 07-24-2019 OBSOLETE Refill (FPWADS) COBY ONTIVEROS ([id number]) 1965 F Date Time Provider Department 07/24/19 CHIDI BRISCOE FPWADS During your visit today, we recorded the following information about you: Olga Elizondo Ma 07/24/2019 8:26 AM Signed Pharmacy verified in Epic Patient has been identified by name and date of : Yes Patient aware RX will be sent to pharmacy. No need to notify patient. Pharmacy phones for refill(s): Pending Prescriptions Disp Refills FENOFIBRATE MICRONIZED 200 MG CAPSULE 90 capsule 0 Sig: TAKE 1 CAPSULE ONCE DAILY GRIS: Yes ATORVASTATIN 40 MG TABLET 90 tablet 0 Sig: TAKE 1 TABLET ONCE DAILY GRIS: Yes Date of last office visit : 03/13/2018 Date of next office visit : Visit date not found Last 2 Encounter Wt Readings: Date: Wt: 03/13/2018 123.6 kg (272 lb 8 oz) 08/09/2017 122.4 kg (269 lb 12.8 oz) Cholesterol: Triglyceride (mg/dL) Date Value 06/01/2016 534 HDL Cholesterol (mg/dL) Date Value 06/01/2016 35 LDL Cholesterol (mg/dL) Date Value 06/01/2016 Unable to calculate due to increased Triglycerides. See LDL-Chol, Direct. LDL (no units) Date Value 08/26/2017 42 08/26/2017 42 ALT (U/L) Date Value 06/10/2015 31 Non HDL Cholesterol (mg/dL) Date Value 06/01/2016 122 Please advise. Olga Perez APRN.PALAK 07/24/2019 8:39 AM Signed Patient needs OV and labs for additional refills The following approved medication requests have been transmitted electronically. Pending Prescriptions Disp Refills FENOFIBRATE MICRONIZED 200 MG CAPSULE 90 capsule 0 Sig: TAKE 1 CAPSULE ONCE DAILY GRIS: Yes ATORVASTATIN 40 MG TABLET 90 tablet 0 Sig: TAKE 1 TABLET ONCE DAILY GRIS: Yes Hermilo Perez APRN.WELDING MACHINE TENDER Aliya Medeiros [facility] 07/24/2019 10:12 AM Signed 1st attempt to reach patient. Left message to call office to schedule appointment. INgrooves message sent to patient. Allergies As of Date: 07/24/2019 (No Known Allergies) Date Reviewed: 03/13/2018 Reviewed by: Olga Elizondo Ma - Fully Assessed Reason for Visit: Refill Request [94] Order(s):fenofibrate (LOFIBRA) 200 mg capsuleTAKE 1 CAPSULE ONCE DAILYDisp: 90 capsuleRfl: 0 atorvastatin (LIPITOR) 40 mg tabletTAKE 1 TABLET ONCE DAILYDisp: 90 tabletRfl: 0 Prescriptions as of 07/24/2019 Sig: FENOFIBRATE MICRONIZED 200 MG* TAKE 1 CAPSULE ONCE DAILY ATORVASTATIN 40 MG TABLET TAKE 1 TABLET ONCE DAILY ESCITALOPRAM 20 MG TABLET Take 1 tablet by mouth once d* AMLODIPINE 10 MG TABLET Take 1 tablet by mouth once d* HYDROCHLOROTHIAZIDE 50 MG TAB* Take 1 tablet by mouth once d* OMEPRAZOLE 20 MG CAPSULE,MEGHAN* TAKE 1 CAPSULE BY MOUTH DAILY* X LOSARTAN 100 MG TABLET Take 1 tablet by mouth once d* X SPIRONOLACTONE 50 MG TABLET Take 1 tablet by mouth once d* X METFORMIN ER 500 MG TABLET,EX* Take 2 tablets by mouth twice* INSULIN GLARGINE (U-100) 100 * Inject 55 Units subcutaneousl* NOVOLOG FLEXPEN U-100 INSULIN* Take subcutaneously before me* DULAGLUTIDE 0.75 MG/0.5 ML ESCAMILLA* Inject 0.75 mg subcutaneously* LEVOTHYROXINE 200 MCG TABLET TAKE 1 TABLET DAILY FOUR DAYS* BIOTIN 5,000 MCG DISINTEGRATI* Take by mouth. GABAPENTIN 600 MG TABLET 1/2 tablet at bedtime, taper * PEN NEEDLE, DIABETIC 32 GAUGE* Use with insulin injections 5* COENZYME Q10 100 MG CAPSULE Take 1 capsule by mouth once * CHOLECALCIFEROL (VITAMIN D3) * 1 capsule twice per day OMEGA-3 FATTY ACIDS 1,000 MG * Take 1 capsule by mouth twice* ASPIRIN 81 MG TABLET Take 81 mg by mouth. MULTIVITAMIN TABLET Take one(1) tablet daily. 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 Prescriptions ordered this encounter Disp Refills Start End FENOFIBRATE MICRONIZED 200 MG CAPSULE 90 c* 0 07/24/2019 Sig: TAKE 1 CAPSULE ONCE DAILY ATORVASTATIN 40 MG TABLET 90 t* 0 07/24/2019 Sig: TAKE 1 TABLET ONCE DAILY Medications Discontinued During This Encounter fenofibrate (LOFIBRA) 200 mg capsule 90 c* 3 06/09/2018 07/24/2019 Sig: TAKE 1 CAPSULE ONCE DAILY Disc: Reason for discontinue is not on file. atorvastatin (LIPITOR) 40 mg tablet 9 (more content not included)... Normal [facility] OBSOLETE Refill (FPWADS) COBY ONTIVEROS ([id number]) 1965 F Date Time Provider Department 07/24/19 DAYNA LEI (ALEX) FPWADS During your visit today, we recorded the following information about you: Olga Elizondo Ma 07/24/2019 8:27 AM Signed Pharmacy verified in [facility] Patient has been identified by name and date of : Yes Patient aware RX will be sent to pharmacy. No need to notify patient. Pharmacy phones for refill(s): Pending Prescriptions Disp Refills METFORMIN ER 500 MG TABLET,EXTENDED RELEASE 24 HR 360 tablet 0 Sig: TAKE 2 TABLETS TWICE A DAY GRIS: Yes LOSARTAN 100 MG TABLET 90 tablet 0 Sig: TAKE 1 TABLET ONCE DAILY GRIS: Yes SPIRONOLACTONE 50 MG TABLET 90 tablet 0 Sig: TAKE 1 TABLET ONCE DAILY GRSI: Yes Date of last office visit : 03/13/2018 Date of next office visit : Visit date not found Last 2 Encounter Wt Readings: Date: Wt: 03/13/2018 123.6 kg (272 lb 8 oz) 08/09/2017 122.4 kg (269 lb 12.8 oz) Diabetes: Hemoglobin A1C (%) Date Value 06/01/2016 9.2 HGBA1C (%) Date Value 02/25/2018 8.8 Please advise. Olga Perez APRN.WELDING MACHINE TENDER 07/24/2019 8:37 AM Signed Patient must have OV and labs prior to additional refills. Allergies As of Date: 07/24/2019 (No Known Allergies) Date Reviewed: 03/13/2018 Reviewed by: Olga Elizondo Ma - Fully Assessed Reason for Visit: Refill Request [94] Visit Diagnoses:Controlled type 2 diabetes mellitus without complication, without long-term current use of insulin (HCC) [E11.9] Essential hypertension, benign [I10] Order(s):metFORMIN ER (GLUCOPHAGE XR) 500 mg 24 hr tabletTAKE 2 TABLETS TWICE A DAYDisp: 360 tabletRfl: 0 losartan (COZAAR) 100 mg tabletTAKE 1 TABLET ONCE DAILYDisp: 90 tabletRfl: 0 spironolactone (ALDACTONE) 50 mg tabletTAKE 1 TABLET ONCE DAILYDisp: 90 tabletRfl: 0 Prescriptions as of 07/24/2019 Sig: METFORMIN ER 500 MG TABLET,EX* TAKE 2 TABLETS TWICE A DAY LOSARTAN 100 MG TABLET TAKE 1 TABLET ONCE DAILY SPIRONOLACTONE 50 MG TABLET TAKE 1 TABLET ONCE DAILY ESCITALOPRAM 20 MG TABLET Take 1 tablet by mouth once d* AMLODIPINE 10 MG TABLET Take 1 tablet by mouth once d* HYDROCHLOROTHIAZIDE 50 MG TAB* Take 1 tablet by mouth once d* OMEPRAZOLE 20 MG CAPSULE,MEGHAN* TAKE 1 CAPSULE BY MOUTH DAILY* FENOFIBRATE MICRONIZED 200 MG* TAKE 1 CAPSULE ONCE DAILY ATORVASTATIN 40 MG TABLET TAKE 1 TABLET ONCE DAILY INSULIN GLARGINE (U-100) 100 * Inject 55 Units subcutaneousl* NOVOLOG FLEXPEN U-100 INSULIN* Take subcutaneously before me* DULAGLUTIDE 0.75 MG/0.5 ML ESCAMILLA* Inject 0.75 mg subcutaneously* LEVOTHYROXINE 200 MCG TABLET TAKE 1 TABLET DAILY FOUR DAYS* BIOTIN 5,000 MCG DISINTEGRATI* Take by mouth. GABAPENTIN 600 MG TABLET 1/2 tablet at bedtime, taper * PEN NEEDLE, DIABETIC 32 GAUGE* Use with insulin injections 5* COENZYME Q10 100 MG CAPSULE Take 1 capsule by mouth once * CHOLECALCIFEROL (VITAMIN D3) * 1 capsule twice per day OMEGA-3 FATTY ACIDS 1,000 MG * Take 1 capsule by mouth twice* ASPIRIN 81 MG TABLET Take 81 mg by mouth. MULTIVITAMIN TABLET Take one(1) tablet daily. 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 Prescriptions ordered this encounter Disp Refills Start End METFORMIN ER 500 MG TABLET,EXTENDED * 360 * 0 07/24/2019 Sig: TAKE 2 TABLETS TWICE A DAY LOSARTAN 100 MG TABLET 90 t* 0 07/24/2019 Sig: TAKE 1 TABLET ONCE DAILY SPIRONOLACTONE 50 MG TABLET 90 t* 0 07/24/2019 Sig: TAKE 1 TABLET ONCE DAILY Medications Discontinued During This Encounter metFORMIN ER (GLUCOPHAGE XR) 500 mg * 360 * 3 08/23/2018 07/24/2019 Route: ORAL Sig: Take 2 tablets by mouth twice daily. Disc: Reason for discontinue is not on file. losartan (COZAAR) 100 mg tablet 90 t* 3 08/23/2018 07/24/2019 Route: ORAL Sig: Take 1 tablet by mouth once daily. Disc: Reason for discontinue is not on file. spironolactone (ALDACTONE) 50 mg tab* 90 t* 3 08/23/2018 07/24/2019 Route: ORAL Sig: Take 1 tablet by mouth once daily. Disc: Reason for discontinue is not on file. Encounter (more content not included)... Normal [facility] Vital Signs Date Time Vital Sign Value Performing Clinician Faci lity 11-08-2024 [id number]:100400 Body height 179.07 cm Olga Flores MEDICAL VIDEOGRAPHER-C Work Phone: [facility] 11-08-2024 09:10-0400 Body mass index (BMI) [Ratio] 32.5 kg/m2 Olgaarmando Flores MEDICAL VIDEOGRAPHER-C Work Phone: [facility] 11-08-2024 09:10-0400 Body weight 104.41 kg Olgajeff Flores MEDICAL VIDEOGRAPHER-C Work Phone: [facility] 11-08-2024 09:10-0400 Diastolic blood pressure 71 mm[Hg] Olgaarmando Flores MEDICAL VIDEOGRAPHER-C Work Phone: [facility] 11-08-2024 09:10-0400 Systolic blood pressure 150 mm[Hg] Olgaarmando Flores MEDICAL VIDEOGRAPHER-C Work Phone: [facility] 10-04-2024 11:28-0400 Body height 179.07 cm Olgajeff Flores MEDICAL VIDEOGRAPHER-C Work Phone: [facility] 10-04-2024 11:28-0400 Body mass index (BMI) [Ratio] 32.8 kg/m2 Olgajeff Flores MEDICAL VIDEOGRAPHER-C Work Phone: [facility] 10-04-2024 11:28-0400 Body weight 105.23 kg Olgajeff Flores MEDICAL VIDEOGRAPHER-C Work Phone: [facility] 10-04-2024 11:28-0400 Diastolic blood pressure 77 mm[Hg] Olga Mark MEDICAL VIDEOGRAPHER-C Work Phone: [facility] 10-04-2024 11:28-0400 Heart rate 78 /min Olga Flores MEDICAL VIDEOGRAPHER-C Work Phone: [facility] 10-04-2024 11:28-0400 SaO2% (BldA) [Mass fraction] 96 % Olga Flores MEDICAL VIDEOGRAPHER-C Work Phone: [facility] 10-04-2024 11:28-0400 Systolic blood pressure 128 mm[Hg] Olga Flores MEDICAL VIDEOGRAPHER-C Work Phone: [facility] 11-01-2022 10:25-0400 Body height 179.07 cm MEDICAL VIDEOGRAPHER-C Olga Flores MEDICAL VIDEOGRAPHER Work Phone: [facility] 11-01-2022 10:25-0400 Body mass index (BMI) [Ratio] 32.7 kg/m2 MEDICAL VIDEOGRAPHER-C Olga Flores MEDICAL VIDEOGRAPHER Work Phone: [facility] 11-01-2022 10:25-0400 Body weight 104.83 kg MEDICAL VIDEOGRAPHER-C Olga Flores MEDICAL VIDEOGRAPHER Work Phone: [facility] 11-01-2022 10:25-0400 Diastolic blood pressure 80 mm[Hg] MEDICAL VIDEOGRAPHER-C Olga Flores MEDICAL VIDEOGRAPHER Work Phone: [facility] 11-01-2022 10:25-0400 Systolic blood pressure 124 mm[Hg] MEDICAL VIDEOGRAPHER-C Olga Flores MEDICAL VIDEOGRAPHER Work Phone: [facility] 07-20-2022 10:32-0400 Body height 179.07 cm MEDICAL VIDEOGRAPHER-C Olga Flores MEDICAL VIDEOGRAPHER Work Phone: [facility] 07-20-2022 10:32-0400 Body mass index (BMI) [Ratio] 33.2 kg/m2 MEDICAL VIDEOGRAPHER-C Olga Flores MEDICAL VIDEOGRAPHER Work Phone: [facility] 07-20-2022 10:32-0400 Body temperature 98.4 [degF] MEDICAL VIDEOGRAPHER-C Olga Flores MEDICAL VIDEOGRAPHER Work Phone: [facility] 07-20-2022 10:32-0400 Body weight 106.59 kg MEDICAL VIDEOGRAPHER-C Olga Mark MEDICAL VIDEOGRAPHER Work Phone: [facility] 07-20-2022 10:32-0400 Diastolic blood pressure 73 mm[Hg] MEDICAL VIDEOGRAPHER-C Olga Mark MEDICAL VIDEOGRAPHER Work Phone: [facility] 07-20-2022 10:32-0400 Heart rate 83 /min MEDICAL VIDEOGRAPHER-C Olga Felton MEDICAL VIDEOGRAPHER Work Phone: [facility] 07-20-2022 10:32-0400 Respiratory rate 16 /min MEDICAL VIDEOGRAPHER-C Olga Mark MEDICAL VIDEOGRAPHER Work Phone: [facility] 07-20-2022 10:32-0400 SaO2% (BldA) [Mass fraction] 98 % MEDICAL VIDEOGRAPHER-C Olga Felton MEDICAL VIDEOGRAPHER Work Phone: [facility] 07-20-2022 10:32-0400 Systolic blood pressure 136 mm[Hg] MEDICAL VIDEOGRAPHER-C Olga Felton MEDICAL VIDEOGRAPHER Work Phone: [facility] 10-26-2021 10:27-0400 Body height 179.07 cm MEDICAL VIDEOGRAPHER-C Olga Felton MEDICAL VIDEOGRAPHER Work Phone: [facility] Work Phone: 10-26-2021 10:26-0400 Body mass index (BMI) [Ratio] 33 kg/m2 MEDICAL VIDEOGRAPHER-C Olga Felton MEDICAL VIDEOGRAPHER Work Phone: [facility] Work Phone: 10-26-2021 10:26-0400 Body weight 106.14 kg MEDICAL VIDEOGRAPHER-C Olga Felton MEDICAL VIDEOGRAPHER Work Phone: [facility] Work Phone: 10-26-2021 10:26-0400 Diastolic blood pressure 70 mm[Hg] MEDICAL VIDEOGRAPHER-C Olga Felton MEDICAL VIDEOGRAPHER Work Phone: [facility] Work Phone: 10-26-2021 10:26-0400 Systolic blood pressure 146 mm[Hg] MEDICAL VIDEOGRAPHER-C Olga Flores MEDICAL VIDEOGRAPHER Work Phone: [facility] Work Phone: 06-17-2021 10:45-0400 Body height 179.07 cm MEDICAL VIDEOGRAPHER-C Olga Flores MEDICAL VIDEOGRAPHER Work Phone: [facility] Work Phone: 06-17-2021 10:45-0400 Body mass index (BMI) [Ratio] 34 kg/m2 MEDICAL VIDEOGRAPHER-C Olga Flores MEDICAL VIDEOGRAPHER Work Phone: [facility] Work Phone: 06-17-2021 10:45-0400 Body temperature 94.8 [degF] MEDICAL VIDEOGRAPHER-C Olga Flores MEDICAL VIDEOGRAPHER Work Phone: [facility] Work Phone: 06-17-2021 10:45-0400 Body weight 109.31 kg MEDICAL VIDEOGRAPHER-C Olga Flores MEDICAL VIDEOGRAPHER Work Phone: [facility] Work Phone: 06-17-2021 10:45-0400 Diastolic blood pressure 82 mm[Hg] MEDICAL VIDEOGRAPHER-C Olga Flores MEDICAL VIDEOGRAPHER Work Phone: [facility] Work Phone: 06-17-2021 10:45-0400 Heart rate 104 /min MEDICAL VIDEOGRAPHER-C Olga Flores MEDICAL VIDEOGRAPHER Work Phone: [facility] Work Phone: 06-17-2021 10:45-0400 Respiratory rate 18 /min MEDICAL VIDEOGRAPHER-C Olga Flores MEDICAL VIDEOGRAPHER Work Phone: [facility] Work Phone: 06-17-2021 10:45-0400 SaO2% (BldA) [Mass fraction] 95 % MEDICAL VIDEOGRAPHER-C Olga Flores MEDICAL VIDEOGRAPHER Work Phone: [facility] Work Phone: 06-17-2021 10:45-0400 Systolic blood pressure 136 mm[Hg] MEDICAL VIDEOGRAPHER-C Olga Flores MEDICAL VIDEOGRAPHER Work Phone: [facility] Work Phone: Encounters Encounter Date Encounter Type Care Provider Facility Start: 11-08-2024 Encounter for gynecological examination (general) (routine) with abnormal findings Denise Cat [facility] Start: 11-08-2024 End: 11-08-[address] Denise Cat MD [facility] Start: 11-08-2024 End: 11-08-2024 ambulatory Olga Flores MEDICAL VIDEOGRAPHER-C Work Phone: [facility] Start: 11-08-2024 End: 11-08-[address] Denise Cat MD [facility] Work Phone: Start: 11-08-2024 End: 11-08-2024 ambulatory Olga Flores MEDICAL VIDEOGRAPHER Facility:[facility] Start: 10-04-2024 End: 10-04-[address] Dave Guerra MD -[facility] Work Phone: Start: 10-04-2024 End: 10-04-2024 ambulatory Olga Flores MEDICAL VIDEOGRAPHER-C Work Phone: [facility] Start: 05-24-2024 End: 05-24-2024 ambulatory Olgajeff Flores MEDICAL VIDEOGRAPHER Facility:[facility] Start: 05-24-2024 End: 05-24-2024 ambulatory Dave Guerra Facility:[facility] Start: 01-26-2024 End: 01-26-2024 ambulatory Olgajeff Flores MEDICAL VIDEOGRAPHER Facility:[facility] Start: 11-01-2022 End: 11-01-2022 ambulatory MEDICAL VIDEOGRAPHER-C Olga Dawsonmer MEDICAL VIDEOGRAPHER Work Phone: [facility] Work Phone: Start: 11-01-2022 End: 11-01-2022 Patient encounter procedure MEDICAL VIDEOGRAPHER-C Olga Flores MEDICAL VIDEOGRAPHER Work Phone: [facility] Work Phone: Start: 07-20-2022 End: 07-20-2022 Patient encounter procedure MEDICAL VIDEOGRAPHER-C Olga Flores MEDICAL VIDEOGRAPHER Work Phone: [facility] Start: 07-19-2022 End: 07-19-2022 ambulatory MEDICAL VIDEOGRAPHER-C Olga Flores MEDICAL VIDEOGRAPHER Work Phone: [facility] Work Phone: Start: 07-19-2022 End: 07-19-2022 Patient encounter procedure MEDICAL VIDEOGRAPHER-C Olga Flores MEDICAL VIDEOGRAPHER [facility] Phone[facility] Start: 10-26-2021 End: 10-26-2021 ambulatory MEDICAL VIDEOGRAPHER-C Olga Flores MEDICAL VIDEOGRAPHER Work Phone: [facility] Work Phone: Start: 10-26-2021 End: 10-26-2021 Patient encounter procedure MEDICAL VIDEOGRAPHER-C Olga Flores MEDICAL VIDEOGRAPHER Work Phone: [facility] Start: 06-26-2021 End: 06-26-2021 Patient encounter procedure MEDICAL VIDEOGRAPHER-C Olga Flores MEDICAL VIDEOGRAPHER Work Phone: [facility] [place] Start: 06-17-2021 End: 06-17-2021 Patient encounter procedure MEDICAL VIDEOGRAPHER-C Olga Mark MEDICAL VIDEOGRAPHER Work Phone: [facility] Start: 05-29-2021 End: 05-29-2021 Patient encounter procedure [facility] Start: 12-24-2019 End: 12-24-2019 Patient encounter procedure MIRA QUINTEROS [facility] Procedures Date Procedure Procedure Detail Performing Clinician Start: 11-08-2024 Screening mammography J noa Flores MEDICAL VIDEOGRAPHER-C Work Phone: Start: 11-01-2022 Screening mammography N P-C Olga Flores MEDICAL VIDEOGRAPHER Work Phone: Start: 10-26-2021 Screening mammography N P-C Olga Flores MEDICAL VIDEOGRAPHER Work Phone: Plan of Treatment Date Care Activity Detail Author Start: 10-26-2021 Liquid based cervica l cytology screening [facility] Work Phone: Path report.final Dx Spec [facility] Work Phone: Payers Date Payer Category Payer Self-pay [id number] 2023 Unknown [id number] 1965 Unknown [id number] [id number] [id number] Unknown [id number] Unknown [id number] 2.16.8 [id number] Unknown [id number] 2.16.8 [id number] Unknown [id number] 2.16.8 [id number] Unknown [id number] 2.16.8 [id number] Unknown [id number] 2.16.8 [id number] Unknown [id number] 2.16.8 [id number] Social History Date Type Detail Facility Start: 12-23-2020 End: 11-01-2022 Tobacco smoking status NHIS Unknown if ever smoked [facility] Start: 04-22-2020 Non-smoker [facility] Start: 1965 Sex Assigned At Female W [facility] Start: 11-07-2023 End: 11-08-2024 Tobacco smoking status NHIS Never smoked tobacco (finding) [facility] Sex Female [facility] Medical Equipment Procedure Code Equipment Code Equipment Origin al Text Equipment Identifier Dates Blood Sugar Diagnostic (Accu-Chek Tracie Plus Test Strp) strip Start: 03-09-2021 Pen Needle, Diab etic (Bd Ultra-Fine Aubrie Pen Needle) 32 gauge x 5/32 needle Start: 09-15-2017 Blood Sugar Diagnostic (Accu-Chek Tracie Plus Test Strp) strip Start: 11-09-2019 End: 03-09-2021 Blood Sugar Diagnostic (Onetouch Ultra Blue Test Strip) strip Start: 11-22-2017 End: 11-22-2017 Blood Sugar Diagnostic (Onetouch Ultra Blue Test Strip) strip Start: 11-22-2017 End: 09-23-2020 Pen Needle, Diab etic (Bd Ultra-Fine Aubrie Pen Needle) 32 gauge x 5/32 needle Start: 09-12-2017 End: 09-15-2017 Pen Needle, Diab etic (Bd Ultra-Fine Aubrie Pen Needle) 32 gauge x 5/32 needle Start: 09-15-2017 End: 09-15-2017 Blood Sugar Diagnostic (Accu-Chek Tracie Plus Test Strp) strip Start: 03-09-2021 Pen Needle, Diab etic (Bd Ultra-Fine Aubrie Pen Needle) 32 gauge x 5/32 needle Start: 09-15-2017 Blood Sugar Diagnostic (Accu-Chek Tracie Plus Test Strp) strip Start: 11-09-2019 End: 03-09-2021 Blood Sugar Diagnostic (Onetouch Ultra Blue Test Strip) strip Start: 11-22-2017 End: 11-22-2017 Blood Sugar Diagnostic (Onetouch Ultra Blue Test Strip) strip Start: 11-22-2017 End: 09-23-2020 Pen Needle, Diab etic (Bd Ultra-Fine Aubrie Pen Needle) 32 gauge x 5/32 needle Start: 09-12-2017 End: 09-15-2017 Pen Needle, Diab etic (Bd Ultra-Fine Aubrie Pen Needle) 32 gauge x 5/32 needle Start: 09-15-2017 End: 09-15-2017 Blood Sugar Diagnostic (Accu-Chek Tracie Plus Test Strp) strip Start: 03-09-2021 Pen Needle, Diab etic (Bd Ultra-Fine Aubrie Pen Needle) 32 gauge x 5/32 needle Start: 09-15-2017 Blood Sugar Diagnostic (Accu-Chek Tracie Plus Test Strp) strip Start: 11-09-2019 End: 03-09-2021 Blood Sugar Diagnostic (Onetouch Ultra Blue Test Strip) strip Start: 11-22-2017 End: 11-22-2017 Blood Sugar Diagnostic (Onetouch Ultra Blue Test Strip) strip Start: 11-22-2017 End: 09-23-2020 Pen Needle, Diab etic (Bd Ultra-Fine Aubrie Pen Needle) 32 gauge x 5/32 needle Start: 09-12-2017 End: 09-15-2017 Pen Needle, Diab etic (Bd Ultra-Fine Aubrie Pen Needle) 32 gauge x 5/32 needle Start: 09-15-2017 End: 09-15-2017 Blood Sugar Diagnostic (Accu-Chek Tracie Plus Test Strp) strip Start: 03-09-2021 Pen Needle, Diab etic (Bd Ultra-Fine Aubrie Pen Needle) 32 gauge x 5/32 needle Start: 09-15-2017 Blood Sugar Diagnostic (Accu-Chek Tracie Plus Test Strp) strip Start: 11-09-2019 End: 03-09-2021 Blood Sugar Diagnostic (Onetouch Ultra Blue Test Strip) strip Start: 11-22-2017 End: 11-22-2017 Blood Sugar Diagnostic (Onetouch Ultra Blue Test Strip) strip Start: 11-22-2017 End: 09-23-2020 Pen Needle, Diab etic (Bd Ultra-Fine Aubrie Pen Needle) 32 gauge x 5/32 needle Start: 09-12-2017 End: 09-15-2017 Pen Needle, Diab etic (Bd Ultra-Fine Aubrie Pen Needle) 32 gauge x 5/32 needle Start: 09-15-2017 End: 09-15-2017 Blood Sugar Diagnostic (Accu-Chek Tracie Plus Test Strp) strip Start: 03-09-2021 Pen Needle, Diab etic (Bd Ultra-Fine Aubrie Pen Needle) 32 gauge x 5/32 needle Start: 09-15-2017 Blood Sugar Diagnostic (Accu-Chek Tracie Plus Test Strp) strip Start: 11-09-2019 End: 03-09-2021 Blood Sugar Diagnostic (Onetouch Ultra Blue Test Strip) strip Start: 11-22-2017 End: 11-22-2017 Blood Sugar Diagnostic (Onetouch Ultra Blue Test Strip) strip Start: 11-22-2017 End: 09-23-2020 Pen Needle, Diab etic (Bd Ultra-Fine Aubrie Pen Needle) 32 gauge x 5/32 needle Start: 09-12-2017 End: 09-15-2017 Pen Needle, Diab etic (Bd Ultra-Fine Aubrie Pen Needle) 32 gauge x 5/32 needle Start: 09-15-2017 End: 09-15-2017 Pen Needle, Diab etic (Bd Ultra-Fine Aubrie Pen Needle) 32 gauge x 5/32 needle Start: 09-15-2017 Blood Sugar Diagnostic (Accu-Chek Tracie Plus Test Strp) strip Start: 11-09-2019 End: 03-09-2021 Blood Sugar Diagnostic (Accu-Chek Tracie Plus Test Strp) strip Start: 03-09-2021 End: 05-24-2024 Blood Sugar Diagnostic (Onetouch Ultra Blue Test Strip) strip Start: 11-22-2017 End: 11-22-2017 Blood Sugar Diagnostic (Onetouch Ultra Blue Test Strip) strip Start: 11-22-2017 End: 09-23-2020 Pen Needle, Diab etic (Bd Ultra-Fine Aubrie Pen Needle) 32 gauge x 5/32 needle Start: 09-12-2017 End: 09-15-2017 Pen Needle, Diab etic (Bd Ultra-Fine Aubrie Pen Needle) 32 gauge x 5/32 needle Start: 09-15-2017 End: 09-15-2017 Pen Needle, Diab etic (Bd Ultra-Fine Aubrie Pen Needle) 32 gauge x 5/32 needle Start: 09-15-2017 Blood Sugar Diagnostic (Accu-Chek Tracie Plus Test Strp) strip Start: 11-09-2019 End: 03-09-2021 Blood Sugar Diagnostic (Accu-Chek Tracie Plus Test Strp) strip Start: 03-09-2021 End: 05-24-2024 Blood Sugar Diagnostic (Onetouch Ultra Blue Test Strip) strip Start: 11-22-2017 End: 11-22-2017 Blood Sugar Diagnostic (Onetouch Ultra Blue Test Strip) strip Start: 11-22-2017 End: 09-23-2020 Pen Needle, Diab etic (Bd Ultra-Fine Aubrie Pen Needle) 32 gauge x 5/32 needle Start: 09-12-2017 End: 09-15-2017 Pen Needle, Diab etic (Bd Ultra-Fine Aubrie Pen Needle) 32 gauge x 5/32 needle Start: 09-15-2017 End: 09-15-2017 Pen Needle, Diab etic (Bd Ultra-Fine Aubrie Pen Needle) 32 gauge x 5/32 needle Start: 09-15-2017 Blood Sugar Diagnostic (Accu-Chek Tracie Plus Test Strp) strip Start: 11-09-2019 End: 03-09-2021 Blood Sugar Diagnostic (Accu-Chek Tracie Plus Test Strp) strip Start: 03-09-2021 End: 05-24-2024 Blood Sugar Diagnostic (Onetouch Ultra Blue Test Strip) strip Start: 11-22-2017 End: 11-22-2017 Blood Sugar Diagnostic (Onetouch Ultra Blue Test Strip) strip Start: 11-22-2017 End: 09-23-2020 Pen Needle, Diab etic (Bd Ultra-Fine Aubrie Pen Needle) 32 gauge x 5/32 needle Start: 09-12-2017 End: 09-15-2017 Pen Needle, Diab etic (Bd Ultra-Fine Aubrie Pen Needle) 32 gauge x 5/32 needle Start: 09-15-2017 End: 09-15-2017 Clinical Notes 10-04-2024 to 11-08-2024 Note Date & Type Note Facility 11-08-2024 Progress note [facility] 10-04-2024 Evaluation note Diagnosis Onset Date Resolution Hyperlipidemia associated with type 2 diabetes mellitus chronic October 04 11:26am Hypertension associated with diabetes chronic October 04 11:26am Hypothyroidism (acquired) chronic October 04, 2024 11:26am Obesity chronic October 04, 2 025 11:26am 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 [address] [place] [address] OFFICE VISIT Date of Service: 10/04/24 MR#: [id number] Acct: [id number] Name: RAMACOBY MARIO Leela Rep #: [id number] : 1965 Provider: Dr. Dave Guerra MD Age/Sex: 59/F Location: [facility] [place] Status: Signed Intake Vital Signs 05/24/24 11:00 10/04/24 11:28 Height 5 ft 10.5 in 5 ft 10.5 in Weight: 229 lb 232 lb BMI 32.3 32.8 BP 114/65 128/77 H Blood Pressure Location Rt brachial Lt brachial Position Sitting Sitting Pulse 81 78 Pulse Source Monitor Monitor Pulse Oximetry (%) 97 96 Oxygen Delivery Method room air room air Intake Visit Reasons: 4 M FU Chief Complaint: Diabetes Lean Manufacturing Specialist Required: No Accompanied by: Self Is patient in pain?: No Allergies No Known Allergies Allergy (Verified 10/04/24 11:27) Medications ?Medication ?Instructions ?Recorded ?Confirmed ?Type pen needle, diabetic 32 gauge x #360 ea 09/15/1710/04 Rx /32 (BD Ultra-Fine Aubrie Pen Needle) multivitamin (Daily Multi-Vitamin 1 tab PO DAILY 12/2310/04/24 History tablet) blood-glucose,rail track maintainer,cont #1 ea 01/28/21 10/04/24 Rx (Dexcom G6 Paint Brush Maker) blood-glucose sensor (Dexcom G6 #3 ea 01/06/22 5 Rx Sensor device) cholecalciferol (vitamin D3) 50 50 mcg PO .QOD 08/01/ 4 10/04/24 History mcg (2,000 unit) capsule Novolog FlexPen U-100 Insulin 100 See Rx Instructions subcut 08/18/23 10/04/24 Rx unit/mL (3 mL) subcutaneous .COMPLEX #180.9 mL (insulin aspart U-100) amlodipine 10 mg tablet 10 mg PO QDAY #90 tabs 09/1110/04/24 Rx fenofibrate nanocrystallized 145 145 mg PO QDAY #90 ta bs 11/07/23 10/04/24 Rx mg tablet (Tricor) trazodone 50 mg tablet 50 mg PO QHS PRN insomnia #9 0 tabs 11/07/23 10/04/24 Rx losartan 100 mg tablet 100 mg PO QDAY #90 tabs 11/0810/04/24 Rx buspirone 5 mg tablet 5 mg PO BID PRN 01/26/24 History clobetasol 0.05 % topical ointment 1 applic topical QH S PRN 01/26/24 10/04/24 History desvenlafaxine succinate 100 mg 100 mg PO DAILY #90 ta bs 03/16/24 10/04/24 Rx tablet,extended release 24 hr (Pristiq) Farxiga 10 mg tablet 10 mg PO DAILY #90 tabs 04/08/3110/04/24 Rx (dapagliflozin propanediol) blood-glucose transmitter (Dexcom #1 ea 05/25/2410/04 Rx G6 Transmitter device) spironolactone 50 mg tablet 50 mg PO DAILY #90 tabs 10/04/24 Rx Dexcom G6 Sensor (blood-glucose #9 ea 06/27/24 5 Rx sensor) levothyroxine 125 mcg tablet 125 mcg PO DAILY #90 tabs 06/27/24 10/04/24 Rx icosapent ethyl 1 gram capsule 2 g (2 x 1 gram) PO BID #360 caps 07/05/24 10/04/24 Rx (Vascepa) metformin 1,000 mg tablet 1,000 mg PO BID #180 tabs 10/04/24 Rx insulin glargine 100 unit/mL (3 55 unit (0.55 mL) subc ut BID #99 mL 08/20/24 10/04/24 Rx mL) subcutaneous pen (Lantus Solostar U-100 Insulin) atorvastatin 40 mg tablet (Lipitor) 40 mg PO QDAY #90 tabs 09/17/24 10/04/24 Rx tirzepatide 10 mg/0.5 mL 10 mg (0.5 mL) subcut QWEEK #6 mL 10/04/24 10/04/24 Rx subcutaneous pen injector (Mounjaro) [facility] Medical History Mixed hyperlipidemia Benign essential hypertension History of concussion History of torn meniscus of left knee APRIL III (cervical intraepithelial neoplasia grade III) with severe dysplasia Lichen sclerosus PCOS (polycystic ovarian syndrome) Abnormal Pap smear of vagina Overweight Diabetes Hypertension Hyperlipemia hypothroidism Anxiety and depression Vitamin D deficiency Surgical History Hx LEEP (loop electrosurgical excision procedure), cervix, S/p bilateral carpal tunnel release Hx laparoscopic cholecystectomy Family History Mother Heart disease Social History number of children: 0 current occupational status: employed 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 and [facility] HPI Chief Complaint: Diabetes Details: COBY ONTIVEROS, is a 59 F who presents to the office today for follow up. A1C is 6.3% She is taking basal bolus She is using Dexcom G7 . Upload reviewed. She is having highs post supper. She is eating out more frequently. She has some fecal urgency with pain and some heartburn. She tries to figure outwhat foods are the problem. She is eating carbs and avoiding meats. Ozempic likely associate with GI distress. She has hypothyroidism and taking levothyroxine. TSH is normal. She has stage 3 CKD that is stable. She is on SGLT2i and ARB. She recounts having series of thyroid ultrasounds in the past. ROS Const Constitutional: Positive for fatigue and weakness; No weight change or change in appetite Eyes Eyes: No change in vision ENT ENT: No hearing loss, nasal congestion or difficulty swallowing Cardio Cardiology: No chest pain at rest, chest pain with exertion or shortness of breath Musc Musculoskeletal: No numbness Neuro Neurology: Positive for weakness; No memory loss or numbness Psych Psychiatric: No change in appetite, No memory loss and No Thoughts of harming yourself/Others Resp Respiratory: No cough or chest congestion Gastro GI: Positive for cramping, diarrhea, loose stools and nausea/dyspepsia; No difficulty swallowing Genitourinary-Female: No burning urination Skin Skin: No itchy eyes or wounds Endo Endocrine: Positive for fatigue; No weight change Aller/Imm Allergy/Immunologic: No itchy eyes Exam Const General: cooperative, healthy appearing, comfortable, no acute distress, well developed and not cushingoid Nutritional Appearance: well nourished Orientation: alert, awake and oriented x3 HENMT Head: normal to inspection Ears: hearing grossly normal bilaterally Nose: external nose normal Mouth: oral mucosae normal Eyes General: appearance normal, both eyes and all related structures Alignment and Position: alignment normal Periorbital: periorbital findings normal Eyelids: eyelids normal Conjunctivae: conjunctivae normal Neck Neck: normal visual inspection Neck mass: No Thyroid: thyroid normal Lymphatic: no lymphadenopathy noted Chest Chest palpation & inspection: normal inspection of the chest Resp Effort & Inspection: normal respiratory effort, able to speak in complete sentences, symmetric chest movement, no audible wheezes and no cough Auscultation: Bilateral: Clear to Auscultation Cardio Rate: regular rate Rhythm: regular rhythm Heart Sounds: murmur (4/6 systolic) Pulses: posterior tibial pulses present GI Inspection: normal to inspection Palpation: soft Skin General: no rashes or lesions noted Neuro General: patient alert, patient awake and patient oriented x3 Cranial Nerves: CN's II-XI intact bilaterally Cognition: normal cognition Speech: speech normal Gait: normal gait Motor: muscle tone normal throughout Extrem General: no edema Psych Appearance: grossly normal Mental Status: mental status grossly normal Mood: congruent mood Affect: normal affect Speech and Movement: speech and movement normal Attitude: cooperative Thought Process: normal Thought Content: normal Judgment: judgment good Results POC A1C POC A1C 6.3 % Last Edit by Nicole Tejada on 10/04/24 11:36 Assessment and Plan Assessment and Plan (1) Type 2 diabetes mellitus with chronic kidney disease: Status: Chronic Qualifiers: Diabetes mellitus dedicated intermodal truck driver insulin use: with dedicated intermodal truck driver use Chronic kidney disease stage: stage 3 (moderate) Qualified Code(s): E11.22 - Type 2 diabetes mellitus with diabetic chronic kidney disease;N18.3 - Chronic kidney disease, stage 3 (moderate); Z79.4 - care home (current) use of insulin Plan: Good control. Diabetes education provided. Discussed food choices and GI issues. Attempt change to Mounjaro due to GI distress. (2) Hyperlipidemia associated with type 2 diabetes mellitus: Status: Chronic Plan: Controlled, please continue current medications. (3) Hypertension associated with diabetes: Status: Chronic Plan: Controlled, please continue current medications. (4) Hypothyroidism (acquired): Status: Chronic Plan: Take levothyroxine on an empty stomach with water at least four hours after eating. Then wait 30-60minutes before consuming any other food or beverage, especially coffee. Separate levothyroxine fromvitamins by at least 4 hours. Stop taking any biotin supplement 4 days prior to having labs drawn. (5) Obesity: Status: Chronic Qualifiers: Obesity type: due to excess calories Obesity classification: adult class 1 (BMI 30 - 34.9) Serious obesity comorbidity presence: with serious comorbidity Body mass index: BMI 32.0-32.9 Qualified Code(s): E66.09 - Other obesity due to excess calories; Z68.32 - Body mass index [BMI] 32.0-32.9, adult Plan: Nutritional counseling provided, avoid flour, sugar, and artificial sweeteners. I have spent [34] minutes today reviewing labs, records and history. Time includes coordinating care, interpretation of tests, discussion with patient's other health care providers via telephone. This also includes time I spent with the patient for exam, treatment plan and education as well as documenting clinical information. Orders: Orders POC A1C Today E11.22 - Type 2 diabetes mellitus with diabetic chronic kidney disease, N18.3 - Chronic kidney disease, stage 3 (moderate), Z79.4 - long term care phlebotomist (current) use of insulin Medications: New tirzepatide (Mounjaro) 10 mg (0.5 mL) subcut QWEEK 6 mL 0RF Discontinued semaglutide (Ozempic) Discontinued Reason: Order Changed 2 mg (0.75 mL) subcut QWEEK 9 mL 3RF E11.22 - Type 2 diabetes mellitus with diabetic chronic kidney disease, N18.3 - Chronic kidney disease, stage 3 (moderate), Z79.4 - long term care phlebotomist (current) use of insulin Coding Level of Care Code Off vis,est,level 4 Diagnoses Type 2 diabetes mellitus with stage 3 chronic kidney disease, with long-term current use of pmsgpnaE17.22; N18.3; Z79.4 Diabetes mellitus mcfp insulin use: with dedicated intermodal truck driver use Chronic kidney disease stage: stage 3 (moderate) Hyperlipidemia associated with type 2 diabetes mellitus E11.69; E78.5 Hypertension associated with diabetes E11.59; I10 Hypothyroidism (acquired) E03.9 Class 1 obesity due to excess calories with serious comorbidity and body mass index (BMI) of 32.0 to 32.9 in adult E66.09; Z68.32 Obesity type: due to excess calories Obesity classification: adult class 1 (BMI 30 - 34.9) Serious obesity comorbidity presence: with serious comorbidity Body mass index: BMI 32.0-32.9 10/04/24 1252 Date _ Dave Guerra MD Cosigner Signature: Date (if applicable) CC: KG Flores ~ [facility]08-28-2025 Progress note Author Dave Guerra [facility] Note Date/Time October 04, 2024 12 :52pm [facility] [address] [place] [address] OFFICE VISIT Date of Service: 10/04/24 MR#: [id number] Acct: [id number] Name: COBY ONTIVEROS Rep #: [id number] : 1965 Provider: Dr. Dave Guerra MD Age/Sex: 59/F Location[place] [facility] [place] Status: Signed Intake Vital Signs 05/24/24 11:00 10/04/24 11:28 Height 5 ft 10.5 in 5 ft 10.5 in Weight: 229 lb 232 lb BMI 32.3 32.8 BP 114/65 128/77 H Blood Pressure Location Rt brachial Lt brachial Position Sitting Sitting Pulse 81 78 Pulse Source Monitor Monitor Pulse Oximetry (%) 97 96 Oxygen Delivery Method room air room air Intake Visit Reasons: 4 M FU Chief Complaint: Diabetes Lean Manufacturing Specialist Required: No Accompanied by: Self Is patient in pain?: No Allergies No Known Allergies Allergy (Verified 10/04/24 11:27) Medications ?Medication ?Instructions ?Recorded ?Confirmed ?Type pen needle, diabetic 32 gauge x #360 ea 09/15/1710/04 Rx (BD Ultra-Fine Aubrie Pen Needle) multivitamin (Daily Multi-Vitamin 1 tab PO DAILY 12/2310/04/24 History tablet) blood-glucose,rail track maintainer,cont #1 ea 01/28/21 10/04/24 Rx (Dexcom G6 Paint Brush Maker) blood-glucose sensor (Dexcom G6 #3 ea 01/06/22 5 Rx Sensor device) cholecalciferol (vitamin D3) 50 50 mcg PO .QOD 08/01/ 4 10/04/24 History mcg (2,000 unit) capsule Novolog FlexPen U-100 Insulin 100 See Rx Instructions subcut 08/18/23 10/04/24 Rx unit/mL (3 mL) subcutaneous .COMPLEX #180.9 mL (insulin aspart U-100) amlodipine 10 mg tablet 10 mg PO QDAY #90 tabs 09/1110/04/24 Rx fenofibrate nanocrystallized 145 145 mg PO QDAY #90 ta bs 11/07/23 10/04/24 Rx mg tablet (Tricor) trazodone 50 mg tablet 50 mg PO QHS PRN insomnia #9 0 tabs 11/07/23 10/04/24 Rx losartan 100 mg tablet 100 mg PO QDAY #90 tabs 11/0810/04/24 Rx buspirone 5 mg tablet 5 mg PO BID PRN 01/26/24 History clobetasol 0.05 % topical ointment 1 applic topical QH S PRN 01/26/24 10/04/24 History desvenlafaxine succinate 100 mg 100 mg PO DAILY #90 ta bs 03/16/24 10/04/24 Rx tablet,extended release 24 hr (Pristiq) Farxiga 10 mg tablet 10 mg PO DAILY #90 tabs 04/08/3110/04/24 Rx (dapagliflozin propanediol) blood-glucose transmitter (Dexcom #1 ea 05/25/2410/04 Rx G6 Transmitter device) spironolactone 50 mg tablet 50 mg PO DAILY #90 tabs 10/04/24 Rx Dexcom G6 Sensor (blood-glucose #9 ea 06/27/24 5 Rx sensor) levothyroxine 125 mcg tablet 125 mcg PO DAILY #90 tabs 06/27/24 10/04/24 Rx icosapent ethyl 1 gram capsule 2 g (2 x 1 gram) PO BID #360 caps 07/05/24 10/04/24 Rx (Vascepa) metformin 1,000 mg tablet 1,000 mg PO BID #180 tabs 10/04/24 Rx insulin glargine 100 unit/mL (3 55 unit (0.55 mL) subc ut BID #99 mL 08/20/24 10/04/24 Rx mL) subcutaneous pen (Lantus Solostar U-100 Insulin) atorvastatin 40 mg tablet (Lipitor) 40 mg PO QDAY #90 tabs 09/17/24 10/04/24 Rx tirzepatide 10 mg/0.5 mL 10 mg (0.5 mL) subcut QWEEK #6 mL 10/04/24 10/04/24 Rx subcutaneous pen injector (Mounjaro) [facility] Medical History Mixed hyperlipidemia Benign essential hypertension History of concussion History of torn meniscus of left knee APRIL III (cervical intraepithelial neoplasia grade III) with severe dysplasia Lichen sclerosus PCOS (polycystic ovarian syndrome) Abnormal Pap smear of vagina Overweight Diabetes Hypertension Hyperlipemia hypothroidism Anxiety and depression Vitamin D deficiency Surgical History Hx LEEP (loop electrosurgical excision procedure), cervix, S/p bilateral carpal tunnel release Hx laparoscopic cholecystectomy Family History Mother Heart disease Social History number of children: 0 current occupational status: employed 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 A1C is 6.3% She is taking basal bolus She is using Dexcom G7 . Upload reviewed. She is having highs post supper. She is eating out more frequently. She has some fecal urgency with pain and some heartburn. She tries to figure outwhat foods are the problem. She is eating carbs and avoiding meats. Ozempic likely associate with GI distress. She has hypothyroidism and taking levothyroxine. TSH is normal. She has stage 3 CKD that is stable. She is on SGLT2i and ARB. She recounts having series of thyroid ultrasounds in the past. ROS Const Constitutional: Positive for fatigue and weakness; No weight change or change in appetite Eyes Eyes: No change in vision ENT ENT: No hearing loss, nasal congestion or difficulty swallowing Cardio Cardiology: No chest pain at rest, chest pain with exertion or shortness of breath Musc Musculoskeletal: No numbness Neuro Neurology: Positive for weakness; No memory loss or numbness Psych Psychiatric: No change in appetite, No memory loss and No Thoughts of harming yourself/Others Resp Respiratory: No cough or chest congestion Gastro GI: Positive for cramping, diarrhea, loose stools and nausea/dyspepsia; No difficulty swallowing Genitourinary-Female: No burning urination Skin Skin: No itchy eyes or wounds Endo Endocrine: Positive for fatigue; No weight change Aller/Imm Allergy/Immunologic: No itchy eyes Exam Const General: cooperative, healthy appearing, comfortable, no acute distress, well developed and not cushingoid Nutritional Appearance: well nourished Orientation: alert, awake and oriented x3 HENMT Head: normal to inspection Ears: hearing grossly normal bilaterally Nose: external nose normal Mouth: oral mucosae normal Eyes General: appearance normal, both eyes and all related structures Alignment and Position: alignment normal Periorbital: periorbital findings normal Eyelids: eyelids normal Conjunctivae: conjunctivae normal Neck Neck: normal visual inspection Neck mass: No Thyroid: thyroid normal Lymphatic: no lymphadenopathy noted Chest Chest palpation & inspection: normal inspection of the chest Resp Effort & Inspection: normal respiratory effort, able to speak in complete sentences, symmetric chest movement, no audible wheezes and no cough Auscultation: Bilateral: Clear to Auscultation Cardio Rate: regular rate Rhythm: regular rhythm Heart Sounds: murmur (4/6 systolic) Pulses: posterior tibial pulses present GI Inspection: normal to inspection Palpation: soft Skin General: no rashes or lesions noted Neuro General: patient alert, patient awake and patient oriented x3 Cranial Nerves: CN's II-XI intact bilaterally Cognition: normal cognition Speech: speech normal Gait: normal gait Motor: muscle tone normal throughout Extrem General: no edema Psych Appearance: grossly normal Mental Status: mental status grossly normal Mood: congruent mood Affect: normal affect Speech and Movement: speech and movement normal Attitude: cooperative Thought Process: normal Thought Content: normal Judgment: judgment good Results POC A1C POC A1C 6.3 % Last Edit by Nicole Tejada on 10/04/24 11:36 Assessment and Plan Assessment and Plan (1) Type 2 diabetes mellitus with chronic kidney disease: Status: Chronic Qualifiers: Diabetes mellitus mcfp insulin use: with dedicated intermodal truck driver use Chronic kidney disease stage: stage 3 (moderate) Qualified Code(s): E11.22 - Type 2 diabetes mellitus with diabetic chronic kidney disease; N18.3 - Chronic kidney disease, stage 3 (moderate); Z79.4 - long term care phlebotomist (current) use of insulin Plan: Good control. Diabetes education provided. Discussed food choices and GI issues. Attempt change to Mounjaro due to GI distress. (2) Hyperlipidemia associated with type 2 diabetes mellitus: Status: Chronic Plan: Controlled, please continue current medications. (3) Hypertension associated with diabetes: Status: Chronic Plan: Controlled, please continue current medications. (4) Hypothyroidism (acquired): Status: Chronic Plan: Take levothyroxine on an empty stomach with water at least four hours after eating. Then wait 30-60 minutes before consuming any other food or beverage, especially coffee. Separate levothyroxine from vitamins by at least 4 hours. Stop taking any biotin supplement 4 days prior to having labs drawn. (5) Obesity: Status: Chronic Qualifiers: Obesity type: due to excess calories Obesity classification: adult class 1 (BMI 30 - 34.9) Serious obesity comorbidity presence: with serious comorbidity Body mass index: BMI 32.0-32.9 Qualified Code(s): E66.09 - Other obesity due to excess calories; Z68.32 - Body mass index [BMI] 32.0-32.9, adult Plan: Nutritional counseling provided, avoid flour, sugar, and artificial sweeteners. I have spent [34] minutes today reviewing labs, records and history. Time includes coordinating care, interpretation of tests, discussion with patient's other health care providers via telephone. This also includes time I spent with the patient for exam, treatment plan and education as well as documenting clinical information. Orders: Orders POC A1C Today E11.22 - Type 2 diabetes mellitus with diabetic chronic kidney disease, N18.3 - Chronic kidney disease, stage 3 (moderate), Z79.4 - long term care phlebotomist (current) use of insulin Medications: New tirzepatide (Mounjaro) 10 mg (0.5 mL) subcut QWEEK 6 mL 0RF Discontinued semaglutide (Ozempic) Discontinued Reason: Order Changed 2 mg (0.75 mL) subcut QWEEK 9 mL 3RF E11.22 - Type 2 diabetes mellitus with diabetic chronic kidney disease, N18.3 - Chronic kidney disease, stage 3 (moderate), Z79.4 - care home (current) use of insulin Coding Level of Care Code Off vis,est,level 4 Diagnoses Type 2 diabetes mellitus with stage 3 chronic kidney disease, with long-term current use of insulin E11.22; N18.3; Z79.4 Diabetes mellitus dedicated intermodal truck driver insulin use: with dedicated intermodal truck driver use Chronic kidney disease stage: stage 3 (moderate) Hyperlipidemia associated with type 2 diabetes mellitus E11.69; E78.5 Hypertension associated with diabetes E11.59; I10 Hypothyroidism (acquired) E03.9 Class 1 obesity due to excess calories with serious comorbidity and body mass index (BMI) of 32.0 to 32.9 in adult E66.09; Z68.32 Obesity type: due to excess calories Obesity classification: adult class 1 (BMI 30 - 34.9) Serious obesity comorbidity presence: with serious comorbidity Body mass index: BMI 32.0-32.9 10/04/24 1252 <Electronically signed by Dave Guerra MD> Date _ Dave Guerra MD Cosigner Signature: Date (if applicable) CC: MEDICAL VIDEOGRAPHER-C Olga Flores ~ [facility] Work Phone: Evaluation noteNo assessment information available [facility] Work Phone: evaluation note* Diagnosis Onset Date Resolution Status Anxiety and depression chron ic Hypothyroidism (acquired) ch ronic Mixed hyperlipidemia chronic Obesity chronic 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 [facility] Work Phone: Evaluation note* Diagnosis Onset Date Resolution Status Encounter for routine gynecological examination noneactive [facility] Work Phone: Evaluation note* Diagnosis Onset Date Resolution Status Hyperlipidemia associated wi th type 2 diabetes mellitus chronic Hypertension associated with diabetes chronic Hypothyroidism (acquired) ch ronic Obesity chronic 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 Lichen sclerosus acute APRIL III (cervical intraepith elial neoplasia grade III) with severe dysplasia chronic Encounter for routine gynecological examination noneactive [facility] Work Phone: evaluation note* Diagnosis Onset Date Resolution Status Admit Date Hyperlipidemia associated wi th type 2 diabetes mellitus chronic October 04, 2024 11:26am Hypertension associated with diabetes chronic October 04 11:26am Hypothyroidism (acquired) chronic October 04, 2024 11:26am Obesity chronic October 04, 2 025 11:26am Type 2 diabetes mellitus wit h chronic kidney disease chronic October 042024 11:26am [facility] Work Phone: Progress note Author Denise Cat [facility] Note Date/Time November 08, 2024 10 :08am [facility] [address] [place] [address], [address] [place] [address] OFFICE VISIT Date of Service: 11/08/24 MR#: [id number] Acct: [id number] Name: RAMACOBY M Rep #: [id number] : 1965 Provider: Dr. 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: No Is patient in pain?: No Feel stressed/tense/nervous/anxious/difficulty sleeping: to some extent (car repair issues) Allergies No Known Allergies Allergy (Verified 11/08/24 09:23) Medications ?Medication ?Instructions ?Recorded ?Confirmed ?Type pen needle, diabetic 32 gauge x #360 ea 09/15/1711/08 Rx /32 (BD Ultra-Fine Aubrie Pen Needle) multivitamin (Daily Multi-Vitamin 1 tab PO DAILY 12/2311/08/24 History tablet) blood-glucose,rail track maintainer,cont #1 ea 01/28/21 11/08/24 Rx (Dexcom G6 Paint Brush Maker) blood-glucose sensor (Dexcom G6 #3 ea 01/06/22 5 Rx Sensor device) cholecalciferol (vitamin D3) 50 50 mcg PO .QOD 4 11/08/24 History mcg (2,000 unit) capsule Novolog FlexPen U-100 Insulin 100 See Rx Instructions subcut 08/18/23 11/08/24 Rx unit/mL (3 mL) subcutaneous .COMPLEX #180.9 mL (insulin aspart U-100) amlodipine 10 mg tablet 10 mg PO QDAY #90 tabs 09/1111/08/24 Rx fenofibrate nanocrystallized 145 145 mg PO QDAY #90 ta bs 11/07/23 11/08/24 Rx mg tablet (Tricor) trazodone 50 mg tablet 50 mg PO QHS PRN insomnia #9 0 tabs 11/07/23 11/08/24 Rx losartan 100 mg tablet 100 mg PO QDAY #90 tabs 11/0811/08/24 Rx buspirone 5 mg tablet 5 mg PO BID PRN 01/26/2404/03 History desvenlafaxine succinate 100 mg 100 mg PO DAILY #90 ta bs 03/16/24 11/08/24 Rx tablet,extended release 24 hr (Pristiq) blood-glucose transmitter (Dexcom #1 ea 05/25/2411/08 Rx G6 Transmitter device) spironolactone 50 mg tablet 50 mg PO DAILY #90 tabs 11/08/24 Rx Dexcom G6 Sensor (blood-glucose #9 ea 06/27/24 5 Rx sensor) levothyroxine 125 mcg tablet 125 mcg PO DAILY #90 tabs 06/27/24 11/08/24 Rx icosapent ethyl 1 gram capsule 2 g (2 x 1 gram) PO BID #360 caps 07/05/24 11/08/24 Rx (Vascepa) metformin 1,000 mg tablet 1,000 mg PO BID #180 tabs 11/08/24 Rx insulin glargine 100 unit/mL (3 55 unit (0.55 mL) subc ut BID #99 mL 08/20/24 11/08/24 Rx mL) subcutaneous pen (Lantus Solostar U-100 Insulin) atorvastatin 40 mg tablet (Lipitor) 40 mg PO QDAY #90 tabs 09/17/24 11/08/24 Rx tirzepatide 10 mg/0.5 mL 10 mg (0.5 mL) subcut QWEEK #6 mL 10/04/24 11/08/24 Rx subcutaneous pen injector (Mounjaro) Farxiga 10 mg tablet 10 mg PO DAILY #90 tabs 04/0311/08/24 Rx (dapagliflozin propanediol) clobetasol 0.05 % topical ointment 1 applic topical QH S PRN itching 11/08/24 11/08/24 Rx #120 grams Is last menstrual period known: No Post menopausal: Yes Patient : No : No PFSH Medical History Mixed hyperlipidemia Benign essential hypertension History of concussion History of torn meniscus of left knee APRIL III (cervical intraepithelial neoplasia grade III) with severe dysplasia Lichen sclerosus PCOS (polycystic ovarian syndrome) Abnormal Pap smear of vagina Overweight Diabetes Hypertension Hyperlipemia hypothroidism Anxiety and depression Vitamin D deficiency Surgical History Hx LEEP (loop electrosurgical excision procedure), cervix, S/p bilateral carpal tunnel release Hx laparoscopic cholecystectomy Family History Mother Heart disease Social History number of children: 0 current occupational status: employed 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 pets and animals: Yes (2 labs) pets and animals: dog(s) Smoking Status: Never smoker alcohol intake: current details: social substance use type: does not use caffeine: Yes what type of physical activity do you participate in: walking frequency: 1-2 times per week seatbelt use: always do you feel safe at home: Yes additional social history: Spouse Travis 2 Labs - David and Osmani History 0 Elective abortions Hx Para Spontaneous abortions Hx # Term Pregnancies Ectopic pregnancies Hx # Pregnancies Multiple births # of living children HPI Encounter for routine gynecological examination Details: COBY ONTIVEROS is a 59 year old who presents for annual exam. started a new job Last PAP: 10/26/2021 - normal History of abnormal PAP: Last mammogram: today History of abnormal mammogram: Colon cancer screening: colonoscopy within last 5 years Other preventative health care screenings: PCP Mark LAZCANO. Sees Dave Guerra routinely. Female Reproductive History Menopausal Symptoms: No hot flashes, No night sweats, Yes difficulty concentrating and No change in libido ROS Const Constitutional: Reports as per HPI, fatigue and poor appetite; Denies increased appetite, night sweats, weight gain or weight loss Cardio Card: Denies chest pain Resp Resp: Denies cough or dyspnea GI GI: Reports as per HPI and other ( ); Denies abdominal pain, bloating, constipation, nausea or vomiting : Reports as per HPI, vaginal pruritus and other; Denies difficulty voiding, dysuria, hematuria, hot flashes, nipple discharge, pelvic pain, prolapse symptoms, urinary frequency, urinary incontinence, urinaryurgency, vaginal discharge, vaginal dryness or vaginal odor Skin Skin/Breast: Denies changing lesions, breast mass, breast pain, breast skin changes or nipple discharge Psych Psych: Reports anxiety, depression and difficulty concentrating; Denies change in libido Exam Const General: cooperative, healthy appearing, comfortable, no acute distress, well developed and well groomed HENMT Head: normal to inspection and normocephalic Ears: hearing grossly normal bilaterally and external ears normal Nose: external nose normal Face and sinus: normal facial exam Neck Neck: normal visual inspection, full ROM and no lymphadenopathy Thyroid: thyroid normal Chest Chest palpation & inspection: normal inspection of the chest Breast inspection: normal inspection of the breasts and normal inspection of theaxillae Breast palpation: normal palpation of the breasts, normal palpation of the axillae and no axillary lymphadenopathy Resp Effort & Inspection: normal respiratory effort GI Inspection: normal to inspection and non-distended Palpation: soft, no hepatosplenomegaly and no guarding General: bladder normal to palpation External Female Exam: normal external appearance, normal appearance of the urethra and no lesions Urethra: normal appearance of the urethra and normal palpation Speculum Exam - Vagina: normal appearance of the vagina and normal vaginal discharge Speculum Exam - Cervix: normal appearance of the cervix, no cervical discharge, no lesions and nontender Bimanual Exam- Vagina & Uterus: normal bimanual exam, uterine size normal, bladder normal to palpation, No tender, uterine mobility normal, consistency normal, non-tender and no cervical motion tenderness Bimanual Exam- Adnexa, other: normal adnexae, no masses and non-tender Skin General: no rashes or lesions noted Neuro General: patient alert, moves all extremities and no focal motor deficits Extrem General: normal to inspection and no pedal edema Psych Appearance: grossly normal Mental Status: mental status grossly normal Affect: normal affect Speech and Movement: speech and movement normal Attitude: cooperative Coding Level of Care Code Off vis,est,prev 40-64yrs Diagnoses Encounter for gynecological examination with abnormal finding Z01.411 Gynecological examination findings: abnormal findings PRESENT Anxiety and depression F41.8 Lichen sclerosus L90.0 PCOS (polycystic ovarian syndrome) E28.2 APRIL III (cervical intraepithelial neoplasia grade III) with severe dysplasia D06.9 Assessment and Plan Assessment and Plan (1) Encounter for routine gynecological examination: Qualifiers: Gynecological examination findings: abnormal findings PRESENT QualifiedCode(s): Z01.411 - Encounter for gynecological examination (general) (routine) with abnormal findings (2) Anxiety and depression: Status: Chronic Comment: add trazodone to pristiq, psych referral. been on zoloft and prozac, effexor, lexapro in past. failed zoloft retrial. (3) Lichen sclerosus: Status: Acute Comment: clobetasol (4) PCOS (polycystic ovarian syndrome): Status: Acute Comment: ordered provera to take PRN (5) APRIL III (cervical intraepithelial neoplasia grade III) with severe dysplasia: Status: Chronic Comment: leep in past Orders: Orders SCRN MAMM (CAD)W/JACKIE BILAT Today Z12.31 - Encounter for screening mammogram for malignant neoplasm of breast Medications: New clobetasol 0.05% apply thin layer; massage gently into affected area nightly x 6 weeks then 1-2x weekly 1 applic topical QHS PRN 120 grams 1RF itching Plan pristiq, trazodone, buspar Cervical cancer screening: pap u pto date Breast cancer screening: mamm other health maintenance examination reviewed and orders placed if needed. Encouraged maintenance of a healthy weight and active lifestyle and handout given. Annual exam handout including recommendations for good health guidelines, Calcium/vitamin D recommendations, and basic screening information given. Problem list up to date, see problem list details for any additional plan information. Follow up in one year for annual health maintenance exam or sooner if needed. 11/08/24 1008 <Electronically signed by Denise rahman MD> Date _ Denise Cat MD Cosign Signature: Date (if applicable) CC: ~ [facility] Work Phone: Reason for referral (narrative)No reason for referral information [facility] Work Phone: Summary Purpose Family History No Family History Records Found Relationship Condition Age at Onset Recorded Date/T abhinav mother Cardiac disease Unknown Advance Directives No Advanced Directives Records Found Advance Directive Response Recorded Date/ Time Living Will No April 22, 2020 7:47pm Power of Switchboard Receptionist No April 22 7:47pm Chief Complaint and Reason for Visit Chief Complaint COPY RESULTS TO DAVE GUERRA ALSO Chief Complaint COPY RESULTS TO DAVE GUERRA ALSO 4 M FU Reason for Visit Anxiety and depressi on Hypothyroidism (acquired) Mixed hyperlipidemia Obesity Type 2 diabetes mellitus with chronic kidney disease Chief Complaint SCREENING 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) Reason for Visit Encounter for routin e gynecological examination Chief Complaint E ORDER 4 M FU Chief Complaint E ORDER 4 M FU SCREENING 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) Reason for Visit Hyperlipidemia assoc iated with type 2 diabetes mellitus Hypertension associated with diabetes Hypothyroidism (acquired) Obesity Type 2 diabetes mellitus with chronic kidney disease Lichen sclerosus APRIL III (cervical intraepithelial neoplasia grade III) with severe dysplasia Encounter for routine gynecological examination Chief Complaint Admit Date 4 M FU October 04, 2024 11 :26am Reason for Visit Admit Date Hyperlipidemia associated with type 2 di abetes mellitus October 04, 2024 11:26am Hypertension associated with diabetes Au truong 2024 11:26am Hypothyroidism (acquired) October 04 025 11:26am Obesity October 04, 2024 11 :26am Type 2 diabetes mellitus with chronic ki dney disease October 04, 2024 11:26am Chief Complaint Admit Date 4 M FU October 04, 2024 11 :26am screen for breast cancer November 08 8:21am 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) November 08, 2024 9: 01am Reason for Visit Admit Date Hyperlipidemia associated with type 2 di abetes mellitus October 04, 2024 11:26am Hypertension associated with diabetes Au truong 2024 11:26am Hypothyroidism (acquired) October 04 025 11:26am Obesity October 04, 2024 11 :26am Type 2 diabetes mellitus with chronic ki dney disease October 04, 2024 11:26am Lichen sclerosus November 08, 2024 9: 01am PCOS (polycystic ovarian syndrome) Octob 2024 9:01am Anxiety and depression November 08, 2024 9:01am APRIL III (cervical intraepith elial neoplasia grade III) with severe dysplasia November 08, 2024 9:01am Encounter for routine gynecological exam ination November 08, 2024 9:01am Additional Source Comments INFORMATION SOURCE (unrecogn ized section and content) DATE CREATED AUTHOR 12/27/2019 [facility] DATE CREATED AUTHOR AUTHOR'S ORGANIZ ATION 12/31/2019 [facility] DATE CREATED AUTHOR AUTHOR'S ORGANIZ ATION 06/14/2020 [facility] DATE CREATED AUTHOR AUTHOR'S ORGANIZ ATION 11/16/2024 [facility] Goals (unrecognized section and content) Goals may be documented in a n alternate sectionGoals may be documented in an alternate sectionGoals may be documented in an alternate sectionGoals may be documented in an alternate sectionGoals may be documented in an alternate sectionGoals may be documented in an alternate sectionGoals may be documented in an alternate sectionGoals may be documented in an alternate section Care Teams (unrecognized sec tion and content) Team Status: Active Member Role Status Dates Dr. Pavel Briscoe MD Family Provider Active Olga Flores NP, MEDICAL VIDEOGRAPHER-C Primary Care Provider Active Team Status: Inactive Member Role Status Dates Olga Flores NP, MEDICAL VIDEOGRAPHER-C Primary Care Provider, Referri ng Provider Active Dr. Dave Guerra MD Attending Provider Active Team Status: Inactive Member Role Status Dates Olga Flores NP, MEDICAL VIDEOGRAPHER-C Primary Care Provider Active Dr. Dave Guerra MD Attending Provider, Referring Provi dani Active Team Status: Inactive Member Role Status Dates Olga Flores NP, MEDICAL VIDEOGRAPHER-C Primary Care Provider, Referri ng Provider Active Dr. Denise Cat MD Attending Provider Active Team Status: Inactive Member Role Status Dates Dr. Denise Cat MD Attending Provider, Referr ing Provider Active Olga Flores NP, MEDICAL VIDEOGRAPHER-C Primary Care Provider Active Team Status: Active Member Role/Relationship Status Dates Dr. Pavel Briscoe MD Family Provider Active Olga Flores MEDICAL VIDEOGRAPHER, MEDICAL VIDEOGRAPHER-C Primary Care Provider Active Team Status: Inactive Member Role/Relationship Status Dates Olga Flores NP, MEDICAL VIDEOGRAPHER-C Primary Care Provider Active Start: October 04, 2024 End: October 04, 2024 Olga Flores NP, MEDICAL VIDEOGRAPHER-C Referring Provider Active Start: October 04, 2024 End: October 04, 2024 Dr. Dave Guerra MD Attending Provider Active Sta rt: October 04, 2024 End: October 04, 2024 Team Status: Active Member Role/Relationship Status Dates Olga Flores NP, MEDICAL VIDEOGRAPHER-C Primary care physician Active Team Status: Inactive Member Role/Relationship Status Dates Olga Flores NP, MEDICAL VIDEOGRAPHER-C Primary care physician Active Start: October 04, 2024 End: October 04, 2024 Olga Flores NP, MEDICAL VIDEOGRAPHER-C Referring Provider Active Start: October 04, 2024 End: October 04, 2024 Dr. Dave Guerra MD Attending physician Active St art: October 04, 2024 End: October 04, 2024 Team Status: Active Member Role/Relationship Status Dates Dr. Denise Cat MD Attending physician Active Start: November 08, 2024 Dr. Denise Cat MD Referring Provider Active Start: November 08, 2024 Olga Flores MEDICAL VIDEOGRAPHER, MEDICAL VIDEOGRAPHER-C Primary care physician Active Start: November 08, 2024 Team Status: Inactive Member Role/Relationship Status Dates Olga Flores NP, MEDICAL VIDEOGRAPHER-C Primary care physician Active Start: November 08, 2024 End: November 08, 2024 Olga Flores NP, MEDICAL VIDEOGRAPHER-C Referring Provider Active Start: November 08, 2024 End: November 08, 2024 Dr. Denise Cat MD Attending physician Active Start: November 08, 2024 End: November 08, 2024 Team Status: Inactive Member Role/Relationship Status Dates Dr. Denise Cat MD Attending physician Active Start: November 08, 2024 End: November 08, 2024 Dr. Denise Cat MD Referring Provider Active Start: November 08, 2024 End: November 08, 2024 Olga Flores NP, MEDICAL VIDEOGRAPHER-C Primary care physician Active Start: November 08, 2024 End: November 08, 2024 FOR RECORDS PERTAINING TO PATIENTS WHO ARE OR HAVE BEEN ENROLLED IN A CHEMICAL DEPENDENCY/SUBSTANCEABUSE PROGRAM, SOME INFORMATION MAY BE OMITTED. This clinical summary was aggregated from multiple sources. Caution should be exercised in using it in the provision of clinical care. This summary normalizes information from multiple sources, and as a consequence, information in this document may materially change the coding, format and clinical context of patient data. In addition, data may be omitted in some cases. CLINICAL DECISIONS SHOULD BE BASED ON THE PRIMARY CLINICAL RECORDS. [facility] [employer], [facility]. provides no warranty or guarantee of the accuracy or completeness of information in this document.
== END | disposition home or self-care (01) ==
LOC: US 14:43
PROVIDERS: PCP Nurse Practitioner Primary Care; Referring Provider Internal Medicine Endocrinology, Diabetes & Metabolism; Visit Provider Internal Medicine Endocrinology, Diabetes & Metabolism
DX: E04.1 Nontoxic single thyroid nodule (principal)
CPT/HCPCS: 76536